=== PATIENT | female | born 1950 | race Hispanic/Latino ===

== ENCOUNTER 2017-02-03 22:46 | Inpatient (IN) | payer MEDICARE ==
[2017-02-04 00:47] LABS: Basophils % (Auto) 0.6 % (0.0-1.8); Eosinophils % (Auto) 1.5 % (0.0-4.3); Hematocrit 38.6 % (30.3-42.9); Hemoglobin 12.2 gm/dl (10.1-14.3); Mean Corpuscular HGB Conc 32 % (30-34); Mean Corpuscular Volume 81 fl (79-97); Platelet Count 213 K/mm3 (140-440); Red Blood Count 4.76 M/mm3 (3.65-5.03); Red Cell Distribution Width 17.1 % (13.2-15.2); White Blood Count 8.9 K/mm3 (4.5-11.0)
[2017-02-04 00:49] LABS: Mean Corpuscular Hemoglobin 26 pg (28-32)
[2017-02-04 01:30] LABS: Anion Gap 20 mmol/L; BUN/Creatinine Ratio 17; Blood Urea Nitrogen 19 mg/dL (7-17); Calcium 9.1 mg/dL (8.4-10.2); Carbon Dioxide 24 mmol/L (22-30); Chloride 98.7 mmol/L (98-107); Glucose 103 mg/dL (65-100); Potassium 4.3 mmol/L (3.6-5.0); Sodium 138 mmol/L (137-145)
[2017-02-04] MEDS ORDERED: DUONEB *Not for PRN Use IH ONE (03:19)
[2017-02-04] MEDS ORDERED: ATROVENT IH ONE (08:09)
[2017-02-04] MEDS ORDERED: PROVENTIL IH ONE (08:09)
[2017-02-04] MEDS ORDERED: TESSALON PERLES PO ONE (08:10)
--- NOTE | 2017-02-04 08:15 | Emergency Department Report ---
ED Shortness of Breath HPI - General Chief Complaint: Dyspnea/Respdistress Stated Complaint: SOB Time Seen by Provider: 02/04/17 07:58 Source: patient, old records reviewed (cardiac cath performed fourth 2014 shows EF of 40-45%, normal coronary arteries, mild increase end diastolic LV pressure) Mode of arrival: Ambulatory Limitations: No Limitations - History of Present Illness Initial Comments: 66-year-old female the past medical history of CHF, COPD (denies home oxygen use), diabetes, CAD, hypertension, lupus, and fibromyalgia presents to the hospital complains of shortness of breath 3 days. Positive social wheezing, cough productive of brown sputum, and worsening left leg edema. Patient has a history of a previous left leg injury and has intermittent unilateral edema she also has a history of a chronic skin wounds intermittent and inflammatory exacerbations. Patient last seen by PMD 2 weeks ago and completed steroids and antibiotics for acute bronchitis. Patient also reports she had flu symptoms for the past 4 weeks and a sinus infection. No documented fever patient states she felt hot yesterday. Patient feels like she is full of fluid and last hospitalization secondary to same was approximately 2 years ago. Patient has been doing well and has not required hospitalization since. 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 PMD: Dr. Aguirre. - Related Data Home Medications Medication Instructions Recorded Confirmed Last Taken Febuxostat [Uloric] 80 mg PO QDAY 12/16/13 07/28/14 07/27/14 Albuterol Sulfate [Proventil HFA] 1 - 2 puff IH Q4H PRN 07/16/14 07/28/14 Previous Rx's Medication Instructions Recorded Last Taken Type Gabapentin [Neurontin] 600 mg PO Q8H #90 tablet 12/17/13 07/27/14 Rx HYDROcodone/APAP 10-325 [[place] 1 each PO Q6HR PRN #20 tablet 12/17/13 07/27/14 Rx 10-325 mg TAB] ALPRAZolam [Xanax TAB] 1 mg PO QHS PRN #20 tablet 07/25/14 07/27/14 Rx Aspirin [Aspirin BABY CHEW TAB] 81 mg PO DAILY #30 tab.chew 07/25/14 07/28/14 Rx Carvedilol [Coreg] 3.125 mg PO BID #60 tablet 07/25/14 07/28/14 Rx Citalopram Hydrobromide [celeXA] 20 mg PO DAILY #30 tablet 07/25/14 07/27/14 Rx Insulin Glargine [Lantus VIAL] 20 units SUB-Q QHS #30 units 07/25/14 07/24/14 Rx Albuterol Sulfate [Albuterol 0.63%] 0.63 mg IH Q6H PRN 30 Days 08/02/14 Unknown Rx Allergies Allergy/AdvReac Type Severity Reaction Status Date / Time Penicillins Allergy Rash Verified 12/15/13 20:43 ED Review of Systems ROS: Stated complaint: SOB Other details as noted in HPI Comment: All other systems reviewed and negative Other: Constitutional: As per HPI Eyes: No eye pain visual changes ENT: No ear pain or throat pain Neck: Denies pain Respiratory: As per HPI Cardiovascular: Denies chest pain, palpitations, syncope GI: Denies abdominal pain, nausea, vomiting : Denies dysuria Musculoskeletal: Denies back pain Skin: Denies rash, lesions, erythema Neurologic: Denies headache, numbness, weakness Psychiatric: Denies suicidal ideation, hallucinations ED Past Medical Hx - Past Medical History Previous Medical History?: Yes Hx Hypertension: Yes Hx Heart Attack/AMI: Yes Hx Congestive Heart Failure: Yes Hx Diabetes: Yes Hx Deep Vein Thrombosis: No Hx Arthritis: Yes Hx Asthma: No Hx COPD: Yes Additional medical history: lupus fibromyalgia - Surgical History Past Surgical History?: Yes Additional Surgical History: carpal tunnel - Social History Smoking Status: Former Smoker Substance Use Type: None - Medications Home Medications: Home Medications Medication Instructions Recorded Confirmed Last Taken Type Febuxostat [Uloric] 80 mg PO QDAY 12/16/13 07/28/14 07/27/14 History Gabapentin [Neurontin] 600 mg PO Q8H #90 tablet 12/17/13 07/28/14 07/27/14 Rx HYDROcodone/APAP 10-325 [[place] 1 each PO Q6HR PRN #20 tablet 12/17/13 07/28/14 07/27/14 Rx 10-325 mg TAB] Albuterol Sulfate [Proventil HFA] 1 - 2 puff IH Q4H PRN 07/16/14 07/28/14 History ALPRAZolam [Xanax TAB] 1 mg PO QHS PRN #20 tablet 07/25/14 07/28/14 07/27/14 Rx Aspirin [Aspirin BABY CHEW TAB] 81 mg PO DAILY #30 tab.chew 07/25/14 07/28/14 Rx Carvedilol [Coreg] 3.125 mg PO BID #60 tablet 07/25/14 07/28/14 07/28/14 Rx Citalopram Hydrobromide [celeXA] 20 mg PO DAILY #30 tablet 07/25/14 07/28/1401/31 Rx Insulin Glargine [Lantus VIAL] 20 units SUB-Q QHS #30 units 07/25/14 07/28/14 Rx Albuterol Sulfate [Albuterol 0.63%] 0.63 mg IH Q6H PRN 30 Days 08/02/14 Unknown Rx ED Physical Exam - General Limitations: No Limitations - Other Other exam information: General: No limitations, patient is alert in no acute distress Head exam: Atraumatic, normocephalic Eyes exam: Normal appearance ENT: Moist mucous membrane Neck exam: Normal inspection, full range of motion, no meningismus nontender Respiratory exam: Clear to auscultation bilateral, no wheezes, rales, crackles Cardiovascular: Normal rate and rhythm, normal heart sounds Abdomen: Soft, nondistended, and nontender, with normal bowel sounds, no rebound, or guarding Extremity: Full range of motion, mild left leg/ankle edema compared to the right. Anterior left leg redness with scaling to the skin. Mild warm. 2+ DP pulses equal bilateral Back: Normal Inspection, full range of motion, no tenderness Neurologic: Alert, oriented x3, cranial nerves intact, no motor or sensory deficit Psychiatric: normal affect, normal mood ED Course Vital Signs 02/03/17 02/04/17 02/04/17 22:49 02:09 03:24 Temperature 97.9 F 98.7 F Pulse Rate 81 83 Pulse Rate [ 65 Anterior Bilateral Throughout] Respiratory 24 22 Rate Respiratory 20 Rate [Anterior Bilateral Throughout] Blood Pressure 128/89 179/86 O2 Sat by Pulse 95 93 Oximetry 02/04/17 02/04/17 02/04/17 03:34 05:40 08:06 Temperature 98.1 F Pulse Rate 67 Pulse Rate [ 69 Anterior Bilateral Throughout] Respiratory 14 Rate Respiratory 20 Rate [Anterior Bilateral Throughout] Blood Pressure 158/71 170/73 O2 Sat by Pulse 96 98 Oximetry ED Medical Decision Making - Lab Data Result diagrams: 02/03/17 23:09 02/03/17 23:09 - EKG Data -: EKG Interpreted by Me (nsr rate 71, no stemi, ars 90, atc 434) - EKG Data When compared to previous EKG there are: no significant change (compared to 07/31) - Radiology Data Radiology results: image reviewed (chest x-ray reviewed: Read by me: Hilar adenopathy versus fullness of the pulmonary arteries, no pulmonary edema or infiltrate appreciated. Official report pending) - Medical Decision Making Clinically patient has signs and symptoms of COPD exacerbation and may also have some mild exacerbation of CHF as well as indicated by increased BNP. No signs of pulmonary edema. Patient states he takes Lasix 40 mg daily and sometimes in the evening as well. Patient will be admitted to the hospital for further treatment. Nebs, Solu-Medrol, and Tessalon Perles for cough initiated in the ED. - Differential Diagnosis viral syndrome, COPD exacerbation, CHF, pneumonia, bronchitis Critical Care Time: No Critical care attestation.: If time is entered above; I have spent that time in minutes in the direct care of this critically ill patient, excluding procedure time. ED Disposition Clinical Impression: COPD with acute exacerbation, Leg edema, left, Chronic venous stasis dermatitis , CHF (congestive heart failure) Disposition: OP ADMIT IP TO THIS HOSP Is pt being admited?: Yes Condition: Stable Time of Disposition: 08:18 ([place]/Hospitalist)
--- NOTE | 2017-02-04 09:05 | XRay Report ---
CHEST 2 VIEWS INDICATION: Shortness of breath for 3 days. Sore throat, bilateral ear pain, cough. COMPARISON: 07/28/2014 FINDINGS: Frontal and lateral chest radiographs demonstrate stable inspiration with mild exaggerated cardiomediastinal silhouette and slightly crowded lung markings centrally. Stable prominent kosta, more so on the right/possible pulmonary arterial hypertension. Slight horizontal left lower lung atelectasis peripherally. No pleural effusions or CHF. Mild multilevel spinal degenerative spurring. CONCLUSION: No acute significant chest process with interval resolution of minimal left pleural effusion. Other findings, as described. Please correlate. Thank you for the opportunity to participate in this patient's care.
[2017-02-04] MEDS ORDERED: NON-FORMULARY (Gabapentin [Neurontin] 600 MG) PO SCH ×2 (09:15→18:00)
--- NOTE | 2017-02-04 09:30 | History and Physical Report ---
<DREW WOLFF - Last Filed: 02/04/17 09:51> History of Present Illness Date of examination: 02/04/17 Date of admission: 02/04/2017 Chief complaint: Shortness of breath History of present illness: Patient is a 66-year-old female with past medical history of e CHF, COPD, diabetes mellitus, CAD, hypertension, lupus, and fibromyalgia, who presents to the emergency department with complaining of shortness of breath.Until 3 days ago patient was at her normal baseline state of health. Patient developed difficulty of breathing 3 days ago and she has had progressive worsening of shortness of breath. This morning while going to the bathroom, shortly thereafter, she felt like she could not catch her breath she decide to come to the Emergency Department. She is not on oxygen at home. Patient denies she has had no fevers, chills, or night sweats. No hx of recurrent pneumonia. He has no sick contact, TB exposure. Patient was diagnosed 2 weeks ago with acute bronchitis and completed steroids and antibiotics. Patient has a history of a previous left leg injury and has intermittent unilateral edema she also has a history of a chronic skin wounds intermittent and inflammatory exacerbations. Past History Past Medical History: CAD, COPD, diabetes, heart failure, hypertension, other ( lupus, and fibromyalgia, ) Past Surgical History: hysterectomy Social history: denies: smoking, alcohol abuse Family history: diabetes, hypertension Medications and Allergies Allergies Allergy/AdvReac Type Severity Reaction Status Date / Time Penicillins Allergy Rash Verified 12/15/13 20:43 Home Medications Medication Instructions Recorded Confirmed Last Taken Type Febuxostat [Uloric] 80 mg PO QDAY 12/16/13 02/04/17 02/02/17 History Carvedilol [Coreg] 6.25 mg PO BID 02/04/17 02/04/17 02/02/17 History Citalopram Hydrobromide [Celexa] 40 mg PO DAILY 02/04/17 02/04/17 02/02/17 History Gabapentin [Neurontin] 600 mg PO QID 02/04/17 02/04/17 02/02/17 History Insulin Detemir [Levemir Flextouch] 20 units SQ QHS 02/04/17 02/04/17 Unknown History Lisinopril [Zestril] 20 mg PO QDAY 02/04/17 02/04/1702/02/17 History Pravastatin [Pravachol] 40 mg PO QHS 02/04/17 02/04/17 02/02/17 History Active Meds: Active Medications Acetaminophen (Tylenol) 650 mg PO Q4H PRN PRN Reason: Pain MILD(1-3)/Fever >100.5/ACUNA Albuterol (Proventil) 2.5 mg IH Q4H PRN PRN Reason: Shortness Of Breath Albuterol/Ipratropium (Duoneb *Not For Prn Use*) 1 ampul IH Q6HRT [facility] Aspirin (Baby Aspirin) 81 mg PO DAILY [facility] Bisacodyl (Dulcolax) 10 mg [place] QDAY PRN PRN Reason: Constipation unrelieved by MOM Citalopram Hydrobromide (Celexa) 20 mg PO DAILY [facility] Enoxaparin Sodium (Lovenox) 40 mg SUB-Q QDAY [facility] Furosemide (Lasix) 40 mg IV BID [facility] Levofloxacin/Dextrose (Levaquin 750mg/150ml) 750 mg in 150 mls @ 100 mls/hr IV Q24HR VU PRN Reason: Protocol Methylprednisolone Sodium Succinate (Solu-Medrol) 60 mg IV Q6H [facility] Miscellaneous Medication (Febuxostat [Uloric]) 80 mg PO QDAY [facility] Miscellaneous Medication (Gabapentin [Neurontin]) 600 mg PO Q8H [facility] Miscellaneous Medication (Insulin Glargine) 20 units SUB-Q QHS [facility] Morphine Sulfate (Morphine) 2 mg IV Q4H PRN PRN Reason: Pain, Moderate (4-6) Review of Systems Constitutional: no weight loss, no weight gain, no fever, no night sweats Ears, nose, mouth and throat: no ear discharge, no tinnitis, no decreased hearing, no nose pain Breasts: no change in shape, no swelling Cardiovascular: no orthopnea, no palpitations, no rapid/irregular heart beat, no edema Respiratory: cough, cough with sputum, shortness of breath, dyspnea on exertion , wheezing, sleep apnea, no excessive sputum, no hemoptysis Gastrointestinal: no nausea, no vomiting Genitourinary Female: no flank pain, no menorrhagia, no dysuria, no urinary frequency Menstruation: no premenarcheal, no post hysterectomy, no ammenorrhea, no period normal Musculoskeletal: no neck pain, no shooting arm pain, no arm numbness/tingling, no low back pain, no shooting leg pain, no leg numbness/tingling Integumentary: no wounds, no jaundice, no boils Neurological: no paralysis, no weakness, no parathesias, no numbness Psychiatric: no memory loss, no change in sleep habits, no sleep disturbances, no insomnia Endocrine: no heat intolerance, no polyphagia, no polydipsia, no polyuria, no nocturia Hematologic/Lymphatic: no easy bruising, no easy bleeding Allergic/Immunologic: no urticaria, no allergic rhinitis Exam - Constitutional Vitals: Temp Pulse Resp BP Pulse Ox 98.1 F 82 18 155/87 96 02/04/17 05:40 02/04/17 09:00 02/04/17 09:00 02/04/17 08:21 02/04/17 08:21 General appearance: Present: mild distress, other (on 2LNc with SPO2 >95%) - EENT Eyes: Present: PERRL - Neck Neck: Present: supple - Respiratory Respiratory: bilateral: CTA - Cardiovascular Rhythm: regular Heart Sounds: Present: S1 & S2 - Extremities Extremities: no ischemia - Abdominal General gastrointestinal: Present: soft, non-tender Female genitourinary: Present: deferred - Rectal Rectal Exam: deferred - Integumentary Integumentary: Present: clear, warm, dry - Musculoskeletal Musculoskeletal: strength equal bilaterally - Psychiatric Psychiatric: appropriate mood/affect - Neurologic Neurologic: CNII-XII intact, moves all extremities - Allied Health Allied health notes reviewed: nursing Results - Labs CBC & Chem 7: 02/03/17 23:09 02/03/17 23:09 Labs: Laboratory Last Values WBC 8.9 K/mm3 (4.5-11.0) 02/03/17 23:09 RBC 4.76 M/mm3 (3.65-5.03) 02/03/17 23:09 Hgb 12.2 gm/dl (10.1-14.3) 02/03/17 23:09 Hct 38.6 % (30.3-42.9) 02/03/17 23:09 MCV 81 fl (79-97) 02/03/17 23:09 MCH 26 pg (28-32) L 02/03/17 23:09 MCHC 32 % (30-34) 02/03/17 23:09 RDW 17.1 % (13.2-15.2) H 02/03/17 23:09 Plt Count 213 K/mm3 (140-440) 02/03/17 23:09 Lymph % (Auto) 5.9 % (13.4-35.0) L 02/03/17 23:09 [place] % (Auto) 11.4 % (0.0-7.3) H 02/03/17 23:09 Eos % (Auto) 1.5 % (0.0-4.3) 02/03/17 23:09 Baso % (Auto) 0.6 % (0.0-1.8) 02/03/17 23:09 Lymph # 0.5 K/mm3 (1.2-5.4) L 02/03/17 23:09 [place] # 1.0 K/mm3 (0.0-0.8) H 02/03/17 23:09 Eos # 0.1 K/mm3 (0.0-0.4) 02/03/17 23:09 Baso # 0.0 K/mm3 (0.0-0.1) 02/03/17 23:09 Seg Neutrophils % 80.6 % (40.0-70.0) H 02/03/17 23:09 Seg Neutrophils # 7.2 K/mm3 (1.8-7.7) 02/03/17 23:09 Sodium 138 mmol/L (137-145) 02/03/17 23:09 Potassium 4.3 mmol/L (3.6-5.0) 02/03/17 23:09 Chloride 98.7 mmol/L (98-107) 02/03/17 23:09 Carbon Dioxide 24 mmol/L (22-30) 02/03/17 23:09 Anion Gap 20 mmol/L 02/03/17 23:09 BUN 19 mg/dL (7-17) H 02/03/17 23:09 Creatinine 1.1 mg/dL (0.7-1.2) 02/03/17 23:09 Estimated GFR 50 ml/min 02/03/17 23:09 BUN/Creatinine Ratio 17 % 02/03/17 23:09 Glucose 103 mg/dL (65-100) H 02/03/17 23:09 Calcium 9.1 mg/dL (8.4-10.2) 02/03/17 23:09 Troponin T < 0.010 ng/mL (0.00-0.029) 02/03/17 23:09 NT-Pro-B Natriuret Pep 8011 pg/mL (0-900) H 02/04/17 02:18 - Imaging and Cardiology Chest x-ray: image reviewed (left pleural effusion) Assessment and Plan Assessment and plan: Patient is a 66-year-old female with past medical history of e CHF, COPD, diabetes mellitus, CAD, hypertension, lupus, and fibromyalgia, who presents to the emergency department with complaining of shortness of breath.Until 3 days ago patient was at her normal baseline state of health. Patient developed difficulty of breathing 3 days ago and she has had progressive worsening of shortness of breath Acute on chronic diastolic Congestive heart failure/pulmonary edema Echocardiogram ordered Restart on Diuresis, beta blockers and ACEI/ARB Strict I&O's and daily weights Low-sodium/cardiac diet/fluid restriction Closely monitor electrolytes Cardiology evaluation Acute COPD exacerbation Continue on Duoneb every 6 hours Wean IV steroid Solumedrol Initiated empiric IV Levaquin Oxygen as necessary Diabetes mellitus Accu-Chek before meals and at bedtime Sliding scale insulin/NovoLog ADA carbohydrate consistent diet Hypertensive urgency Continue home antihypertensive medications Closely monitor blood pressure DVT prophylaxis Heparin Advance Directives: Yes VTE prophylaxis?: Chemical Contraindication Mechanical VTE Prophylaxis: Treatment Not Indicated Plan of care discussed with patient/family: Yes <STEPHENIE ZAIDI O - Last Filed: 02/07/17 05:47> History of Present Illness Date of admission: 02/04/17 08:48 Medications and Allergies Active Meds: Active Medications Acetaminophen (Tylenol) 650 mg PO Q4H PRN PRN Reason: Pain MILD(1-3)/Fever >100.5/ACUNA Last Admin: 02/06/17 06:44 Dose: 650 mg Albuterol (Proventil) 2.5 mg IH Q4H PRN PRN Reason: Shortness Of Breath Albuterol/Ipratropium (Duoneb *Not For Prn Use*) 1 ampul IH Q6HRT [facility] Last Admin: 02/07/17 03:04 Dose: 1 ampul Aspirin (Baby Aspirin) 81 mg PO DAILY [facility] Last Admin: 02/06/17 10:15 Dose: 81 mg Benzonatate (Tessalon Perles) 100 mg PO Q8HR [facility] Last Admin: 02/06/17 22:40 Dose: 100 mg Bisacodyl (Dulcolax) 10 mg [place] QDAY PRN PRN Reason: Constipation unrelieved by MOM Carvedilol (Coreg) 6.25 mg PO BID [facility] Last Admin: 02/06/17 22:42 Dose: 6.25 mg Citalopram Hydrobromide (Celexa) 40 mg PO QDAY [facility] Last Admin: 02/06/17 10:22 Dose: 40 mg Dextrose (D50w (25gm) Syringe) 50 ml IV PRN PRN PRN Reason: Hypoglycemia Enoxaparin Sodium (Lovenox) 40 mg SUB-Q QDAY [facility] Last Admin: 02/06/17 10:22 Dose: 40 mg Gabapentin (Neurontin) 600 mg PO Q8HR [facility] Last Admin: 02/06/17 22:40 Dose: 600 mg Levofloxacin/Dextrose (Levaquin 750mg/150ml) 750 mg in 150 mls @ 100 mls/hr IV Q24H VU PRN Reason: Protocol Last Admin: 02/06/17 13:17 Dose: 100 mls/hr Insulin Aspart (Novolog) 0 units SUB-Q [facility] PRN Reason: Protocol Last Admin: 02/06/17 17:54 Dose: 4 units Insulin Aspart (Novolog) 0 units SUB-Q QHS [facility] PRN Reason: Protocol Last Admin: 02/06/17 22:52 Dose: 2 units Insulin Detemir (Levemir) 20 units SUB-Q QHS [facility] Last Admin: 02/06/17 22:41 Dose: 20 units Methylprednisolone Sodium Succinate (Solu-Medrol) 60 mg IV Q8H [facility] Last Admin: 02/06/17 22:39 Dose: 60 mg Miscellaneous Medication (Febuxostat [Uloric]) 80 mg PO QDAY [facility] Morphine Sulfate (Morphine) 2 mg IV Q4H PRN PRN Reason: Pain, Moderate (4-6) Ondansetron HCl (Zofran) 4 mg IV Q4H PRN PRN Reason: Nausea And Vomiting Simvastatin (Zocor) 20 mg PO QHS [facility] Last Admin: 02/06/17 22:41 Dose: 20 mg Exam - Constitutional Vitals: Temp Pulse Resp BP Pulse Ox 97.2 F L 66 20 152/69 65 L 02/07/17 05:26 02/07/17 05:26 02/07/17 05:26 02/07/17 05:26 02/07/17 05:26 Results - Labs CBC & Chem 7: 02/05/17 15:18 02/06/17 03:44 Labs: Laboratory Last Values WBC 10.6 K/mm3 (4.5-11.0) 02/05/17 15:18 RBC 4.38 M/mm3 (3.65-5.03) 02/05/17 15:18 Hgb 11.5 gm/dl (10.1-14.3) 02/05/17 15:18 Hct 34.7 % (30.3-42.9) 02/05/17 15:18 MCV 79 fl (79-97) 02/05/17 15:18 MCH 26 pg (28-32) L 02/05/17 15:18 MCHC 33 % (30-34) 02/05/17 15:18 RDW 16.8 % (13.2-15.2) H 02/05/17 15:18 Plt Count 182 K/mm3 (140-440) 02/05/17 15:18 Lymph % (Auto) 4.0 % (13.4-35.0) L 02/05/17 15:18 [place] % (Auto) 6.5 % (0.0-7.3) 02/05/17 15:18 Eos % (Auto) 0.0 % (0.0-4.3) 02/05/17 15:18 Baso % (Auto) 0.0 % (0.0-1.8) 02/05/17 15:18 Lymph # 0.4 K/mm3 (1.2-5.4) L 02/05/17 15:18 [place] # 0.7 K/mm3 (0.0-0.8) 02/05/17 15:18 Eos # 0.0 K/mm3 (0.0-0.4) 02/05/17 15:18 Baso # 0.0 K/mm3 (0.0-0.1) 02/05/17 15:18 Seg Neutrophils % 89.5 % (40.0-70.0) H 02/05/17 15:18 Seg Neutrophils # 9.5 K/mm3 (1.8-7.7) H 02/05/17 15:18 PT 14.8 Sec. (12.2-14.9) 02/04/17 10:16 INR 1.10 (0.87-1.13) 02/04/17 10:16 Sodium 137 mmol/L (137-145) 02/06/17 03:44 Potassium 4.9 mmol/L (3.6-5.0) 02/06/17 03:44 Chloride 100.5 mmol/L (98-107) 02/06/17 03:44 Carbon Dioxide 22 mmol/L (22-30) 02/06/17 03:44 Anion Gap 19 mmol/L 02/06/17 03:44 BUN 49 mg/dL (7-17) H 02/06/17 03:44 Creatinine 1.5 mg/dL (0.7-1.2) H 02/06/17 03:44 Estimated GFR 35 ml/min 02/06/17 03:44 BUN/Creatinine Ratio 33 % 02/06/17 03:44 Glucose 241 mg/dL (65-100) H 02/06/17 03:44 POC Glucose 170 (70-105) H 02/06/17 21:58 Hemoglobin A1c 6.9 % (4-6) H 02/04/17 10:16 Calcium 8.3 mg/dL (8.4-10.2) L 02/06/17 03:44 Total Bilirubin 1.00 mg/dL (0.1-1.2) 02/04/17 10:16 AST 19 units/L (5-40) 02/04/17 10:16 ALT 13 units/L (7-56) 02/04/17 10:16 Alkaline Phosphatase 120 units/L (35-129) 02/04/17 10:16 Troponin T < 0.010 ng/mL (0.00-0.029) 02/03/17 23:09 NT-Pro-B Natriuret Pep 8011 pg/mL (0-900) H 02/04/17 02:18 Total Protein 7.6 g/dL (6.3-8.2) 02/04/17 10:16 Albumin 3.7 g/dL (3.9-5) L 02/04/17 10:16 Albumin/Globulin Ratio 0.9 % 02/04/17 10:16 Assessment and Plan Assessment and plan: I saw and evaluated the patient. I agree with the findings and the plan of care as documented in the Nurse Practitioner's~note, with the following corrections and additions. Patient is 66 yo with acute respiratory failure due to COPD exacerbation. Admit to Telemetry. Titrate Oxygen to keep Oxygen sat>92%
[2017-02-04] MEDS ORDERED: FEBUXOSTAT 80 MG PO SCH (10:00)
[2017-02-04] MEDS ORDERED: celeXA PO SCH (10:00)
[2017-02-04] MEDS ORDERED: ZOFRAN IV ONE (10:32)
[2017-02-04] MEDS ORDERED: ZOFRAN ONE (10:37)
[2017-02-04 10:41] LABS: INR 1.1 (0.87-1.13)
[2017-02-04 10:50] LABS: Alanine Aminotransferase 13 units/L (7-56); Albumin 3.7 g/dL (3.9-5); Albumin/Globulin Ratio 0.9 %; Alkaline Phosphatase 120 units/L (35-129); Anion Gap 19 mmol/L; BUN/Creatinine Ratio 21; Blood Urea Nitrogen 19 mg/dL (7-17); Calcium 9.1 mg/dL (8.4-10.2); Carbon Dioxide 23 mmol/L (22-30); Chloride 99.6 mmol/L (98-107); Glucose 116 mg/dL (65-100); Potassium 4.5 mmol/L (3.6-5.0); Sodium 137 mmol/L (137-145); Total Protein 7.6 g/dL (6.3-8.2)
[2017-02-04] MEDS ORDERED: DULCOLAX PR PRN (11:00)
[2017-02-04] MEDS ORDERED: PROVENTIL IH PRN (11:00)
[2017-02-04] MEDS ORDERED: D50W (25GM) Syringe IV PRN (11:00)
[2017-02-04] MEDS ORDERED: ZOFRAN IV PRN (11:31)
[2017-02-04] MEDS: NOVOLOG SUB-Q SCH ×3 (11:56→21:32)
[2017-02-04] MEDS ORDERED: K-DUR PO SCH (12:00)
[2017-02-04] MEDS: LASIX IV SCH ×2 (12:10→21:29)
[2017-02-04] MEDS: LOVENOX SUB-Q SCH (12:10)
[2017-02-04] MEDS: BABY ASPIRIN PO SCH (12:11)
[2017-02-04] MEDS: LEVAQUIN 750MG/150ML 750 MG/150 ML BAG IV SCH (12:26)
[2017-02-04] MEDS: DUONEB *Not for PRN Use IH SCH ×2 (14:33→20:02)
[2017-02-04] MEDS: NEURONTIN PO SCH ×2 (14:44→21:30)
[2017-02-04] MEDS: TESSALON PERLES PO SCH ×2 (16:38→17:24)
[2017-02-04] MEDS: LEVEMIR SUB-Q SCH (21:28)
[2017-02-04] MEDS: COREG PO SCH (21:31)
[2017-02-04] MEDS: ZOCOR PO SCH (21:31)
[2017-02-04] MEDS ORDERED: NON-FORMULARY (Insulin Glargine 20 UNITS) SUB-Q SCH (22:00)
[2017-02-04] MEDS ORDERED: NON-FORMULARY (Pravastatin 40 MG) PO SCH (22:00)
[2017-02-05] MEDS: DUONEB *Not for PRN Use IH SCH ×4 (03:04→20:15)
[2017-02-05] MEDS: NEURONTIN PO SCH ×3 (05:04→21:34)
[2017-02-05] MEDS: TESSALON PERLES PO SCH ×3 (05:04→21:35)
[2017-02-05 06:20] LABS: Hematocrit 35.7 % (30.3-42.9); Hemoglobin 11.5 gm/dl (10.1-14.3); Mean Corpuscular HGB Conc 32 % (30-34); Mean Corpuscular Volume 80 fl (79-97); Platelet Count 179 K/mm3 (140-440); Red Blood Count 4.45 M/mm3 (3.65-5.03); Red Cell Distribution Width 16.6 % (13.2-15.2); White Blood Count 5.3 K/mm3 (4.5-11.0)
[2017-02-05 06:21] LABS: Mean Corpuscular Hemoglobin 26 pg (28-32)
[2017-02-05] MEDS: NOVOLOG SUB-Q SCH ×4 (08:32→22:03)
--- NOTE | 2017-02-05 09:52 | Progress Note ---
<DREW WOLFF - Last Filed: 02/05/17 15:02> Assessment and Plan Assessment and plan: Patient is a 66-year-old female with past medical history of e CHF, COPD, diabetes mellitus, CAD, hypertension, lupus, and fibromyalgia, who presents to the emergency department with complaining of shortness of breath.Until 3 days ago patient was at her normal baseline state of health. Patient developed difficulty of breathing 3 days ago and she has had progressive worsening of shortness of breath Acute on chronic diastolic Congestive heart failure/pulmonary edema Echocardiogram ordered Restart on Diuresis, beta blockers and ACEI/ARB Strict I&O's and daily weights Low-sodium/cardiac diet/fluid restriction Closely monitor electrolytes Cardiology evaluation Acute COPD exacerbation Continue on Duoneb every 6 hours Wean IV steroid Solumedrol Initiated empiric IV Levaquin Oxygen as necessary Diabetes mellitus Accu-Chek before meals and at bedtime Sliding scale insulin/NovoLog ADA carbohydrate consistent diet Hypertensive urgency Continue home antihypertensive medications also add lisinopril and carvedilol Closely monitor blood pressure Hyperlipidemia Started on Zocor 20mg daily DVT prophylaxis Heparin History Interval history: Patient complains dyspnea on exertion, denies chest pain or dizziness. Labs and nurse notes reviewed. Hospitalist Physical - Constitutional Vitals: Temp Pulse Resp BP Pulse Ox 97.7 F 67 18 133/65 95 02/05/17 09:00 02/05/17 09:00 02/05/17 05:17 02/05/17 09:00 02/05/17 05:17 General appearance: Present: mild distress, other (on 2LNc with SPO2 >95%) - EENT Eyes: Present: PERRL ENT: hearing intact - Neck Neck: Present: supple - Respiratory Respiratory: bilateral: wheezing - Cardiovascular Rhythm: regular Heart Sounds: Present: S1 & S2 - Abdominal General gastrointestinal: soft, non-tender - Integumentary Integumentary: Present: clear, warm, dry - Psychiatric Psychiatric: appropriate mood/affect - Allied Health Allied health notes reviewed: nursing Results - Labs CBC & Chem 7: 02/05/17 05:08 02/05/17 05:08 Labs: Laboratory Last Values WBC 5.3 K/mm3 (4.5-11.0) 02/05/17 05:08 RBC 4.45 M/mm3 (3.65-5.03) 02/05/17 05:08 Hgb 11.5 gm/dl (10.1-14.3) 02/05/17 05:08 Hct 35.7 % (30.3-42.9) 02/05/17 05:08 MCV 80 fl (79-97) 02/05/17 05:08 MCH 26 pg (28-32) L 02/05/17 05:08 MCHC 32 % (30-34) 02/05/17 05:08 RDW 16.6 % (13.2-15.2) H 02/05/17 05:08 Plt Count 179 K/mm3 (140-440) 02/05/17 05:08 Lymph % (Auto) [place] Tester 02/05/17 05:08 [place] % (Auto) [place]inell Tester 02/05/17 05:08 Eos % (Auto) [place] Tester 02/05/17 05:08 Baso % (Auto) [place] Tester 02/05/17 05:08 Lymph # [place] Tester 02/05/17 05:08 [place] # Brinell Tester 02/05/17 05:08 Eos # Brinell Tester 02/05/17 05:08 Baso # Brinell Tester 02/05/17 05:08 Seg Neutrophils % [place] Tester 02/05/17 05:08 Seg Neutrophils # [place]inell Tester 02/05/17 05:08 PT 14.8 Sec. (12.2-14.9) 02/04/17 10:16 INR 1.10 (0.87-1.13) 02/04/17 10:16 Sodium 137 mmol/L (137-145) 02/04/17 10:16 Potassium 4.9 mmol/L (3.6-5.0) 02/05/17 05:08 Chloride 99.6 mmol/L (98-107) 02/04/17 10:16 Carbon Dioxide 23 mmol/L (22-30) 02/04/17 10:16 Anion Gap 19 mmol/L 02/04/17 10:16 BUN 19 mg/dL (7-17) H 02/04/17 10:16 Creatinine 0.9 mg/dL (0.7-1.2) 02/04/17 10:16 Estimated GFR > 60 ml/min 02/04/17 10:16 BUN/Creatinine Ratio 21 % 02/04/17 10:16 Glucose 116 mg/dL (65-100) H 02/04/17 10:16 POC Glucose 245 (70-105) H 02/05/17 08:01 Hemoglobin A1c 6.9 % (4-6) H 02/04/17 10:16 Calcium 9.1 mg/dL (8.4-10.2) 02/04/17 10:16 Total Bilirubin 1.00 mg/dL (0.1-1.2) 02/04/17 10:16 AST 19 units/L (5-40) 02/04/17 10:16 ALT 13 units/L (7-56) 02/04/17 10:16 Alkaline Phosphatase 120 units/L (35-129) 02/04/17 10:16 Troponin T < 0.010 ng/mL (0.00-0.029) 02/03/17 23:09 NT-Pro-B Natriuret Pep 8011 pg/mL (0-900) H 02/04/17 02:18 Total Protein 7.6 g/dL (6.3-8.2) 02/04/17 10:16 Albumin 3.7 g/dL (3.9-5) L 02/04/17 10:16 Albumin/Globulin Ratio 0.9 % 02/04/17 10:16 <STEPHENIE ZAIDI - Last Filed: 02/07/17 05:48> Assessment and Plan Assessment and plan: I saw and evaluated the patient. I agree with the findings and the plan of care as documented in the Nurse Practitioner's~note, with the following corrections and additions. Patient with acute respiratory failure due to COPD and CHF exacerbation.. Still has shortness of breath. Creatinine elevated therefore lasix discontinued. Hospitalist Physical - Constitutional Vitals: Temp Pulse Resp BP Pulse Ox 97.2 F L 66 20 152/69 65 L 02/07/17 05:26 02/07/17 05:26 02/07/17 05:26 02/07/17 05:26 02/07/17 05:26 Results - Labs CBC & Chem 7: 02/05/17 15:18 02/06/17 03:44 Labs: Laboratory Last Values WBC 10.6 K/mm3 (4.5-11.0) 02/05/17 15:18 RBC 4.38 M/mm3 (3.65-5.03) 02/05/17 15:18 Hgb 11.5 gm/dl (10.1-14.3) 02/05/17 15:18 Hct 34.7 % (30.3-42.9) 02/05/17 15:18 MCV 79 fl (79-97) 02/05/17 15:18 MCH 26 pg (28-32) L 02/05/17 15:18 MCHC 33 % (30-34) 02/05/17 15:18 RDW 16.8 % (13.2-15.2) H 02/05/17 15:18 Plt Count 182 K/mm3 (140-440) 02/05/17 15:18 Lymph % (Auto) 4.0 % (13.4-35.0) L 02/05/17 15:18 [place] % (Auto) 6.5 % (0.0-7.3) 02/05/17 15:18 Eos % (Auto) 0.0 % (0.0-4.3) 02/05/17 15:18 Baso % (Auto) 0.0 % (0.0-1.8) 02/05/17 15:18 Lymph # 0.4 K/mm3 (1.2-5.4) L 02/05/17 15:18 [place] # 0.7 K/mm3 (0.0-0.8) 02/05/17 15:18 Eos # 0.0 K/mm3 (0.0-0.4) 02/05/17 15:18 Baso # 0.0 K/mm3 (0.0-0.1) 02/05/17 15:18 Seg Neutrophils % 89.5 % (40.0-70.0) H 02/05/17 15:18 Seg Neutrophils # 9.5 K/mm3 (1.8-7.7) H 02/05/17 15:18 PT 14.8 Sec. (12.2-14.9) 02/04/17 10:16 INR 1.10 (0.87-1.13) 02/04/17 10:16 Sodium 137 mmol/L (137-145) 02/06/17 03:44 Potassium 4.9 mmol/L (3.6-5.0) 02/06/17 03:44 Chloride 100.5 mmol/L (98-107) 02/06/17 03:44 Carbon Dioxide 22 mmol/L (22-30) 02/06/17 03:44 Anion Gap 19 mmol/L 02/06/17 03:44 BUN 49 mg/dL (7-17) H 02/06/17 03:44 Creatinine 1.5 mg/dL (0.7-1.2) H 02/06/17 03:44 Estimated GFR 35 ml/min 02/06/17 03:44 BUN/Creatinine Ratio 33 % 02/06/17 03:44 Glucose 241 mg/dL (65-100) H 02/06/17 03:44 POC Glucose 170 (70-105) H 02/06/17 21:58 Hemoglobin A1c 6.9 % (4-6) H 02/04/17 10:16 Calcium 8.3 mg/dL (8.4-10.2) L 02/06/17 03:44 Total Bilirubin 1.00 mg/dL (0.1-1.2) 02/04/17 10:16 AST 19 units/L (5-40) 02/04/17 10:16 ALT 13 units/L (7-56) 02/04/17 10:16 Alkaline Phosphatase 120 units/L (35-129) 02/04/17 10:16 Troponin T < 0.010 ng/mL (0.00-0.029) 02/03/17 23:09 NT-Pro-B Natriuret Pep 8011 pg/mL (0-900) H 02/04/17 02:18 Total Protein 7.6 g/dL (6.3-8.2) 02/04/17 10:16 Albumin 3.7 g/dL (3.9-5) L 02/04/17 10:16 Albumin/Globulin Ratio 0.9 % 02/04/17 10:16
[2017-02-05] MEDS: LASIX IV SCH (10:00)
[2017-02-05] MEDS ORDERED: ZESTRIL PO SCH (10:00)
[2017-02-05] MEDS ORDERED: NON-FORMULARY (Citalopram Hydrobromide [Celexa] 40 MG) PO SCH (10:00)
[2017-02-05] MEDS: celeXA PO SCH (13:29)
[2017-02-05] MEDS: COREG PO SCH ×2 (13:29→21:35)
[2017-02-05] MEDS: LOVENOX SUB-Q SCH (13:30)
[2017-02-05] MEDS: BABY ASPIRIN PO SCH (13:30)
--- NOTE | 2017-02-05 15:01 | Progress Note ---
Hospitalist Physical - Constitutional Vitals: Temp Pulse Resp BP Pulse Ox 97.7 F 90 18 133/65 95 02/05/17 09:00 02/05/17 13:29 02/05/17 07:35 02/05/17 09:00 02/05/17 07:24 General appearance: Present: mild distress, other (on 2LNc with SPO2 >95%) Results - Labs CBC & Chem 7: 02/05/17 05:08 02/05/17 05:08 Labs: Laboratory Last Values WBC 5.3 K/mm3 (4.5-11.0) 02/05/17 05:08 RBC 4.45 M/mm3 (3.65-5.03) 02/05/17 05:08 Hgb 11.5 gm/dl (10.1-14.3) 02/05/17 05:08 Hct 35.7 % (30.3-42.9) 02/05/17 05:08 MCV 80 fl (79-97) 02/05/17 05:08 MCH 26 pg (28-32) L 02/05/17 05:08 MCHC 32 % (30-34) 02/05/17 05:08 RDW 16.6 % (13.2-15.2) H 02/05/17 05:08 Plt Count 179 K/mm3 (140-440) 02/05/17 05:08 Lymph % (Auto) Bi Developer 02/05/17 05:08 [place] % (Auto) Bi Developer 02/05/17 05:08 Eos % (Auto) Bi Developer 02/05/17 05:08 Baso % (Auto) Bi Developer 02/05/17 05:08 Lymph # Bi Developer 02/05/17 05:08 [place] # Bi Developer 02/05/17 05:08 Eos # Bi Developer 02/05/17 05:08 Baso # Bi Developer 02/05/17 05:08 Seg Neutrophils % Bi Developer 02/05/17 05:08 Seg Neutrophils # Bi Developer 02/05/17 05:08 PT 14.8 Sec. (12.2-14.9) 02/04/17 10:16 INR 1.10 (0.87-1.13) 02/04/17 10:16 Sodium 137 mmol/L (137-145) 02/04/17 10:16 Potassium 4.9 mmol/L (3.6-5.0) 02/05/17 05:08 Chloride 99.6 mmol/L (98-107) 02/04/17 10:16 Carbon Dioxide 23 mmol/L (22-30) 02/04/17 10:16 Anion Gap 19 mmol/L 02/04/17 10:16 BUN 19 mg/dL (7-17) H 02/04/17 10:16 Creatinine 0.9 mg/dL (0.7-1.2) 02/04/17 10:16 Estimated GFR > 60 ml/min 02/04/17 10:16 BUN/Creatinine Ratio 21 % 02/04/17 10:16 Glucose 116 mg/dL (65-100) H 02/04/17 10:16 POC Glucose 311 (70-105) H 02/05/17 12:34 Hemoglobin A1c 6.9 % (4-6) H 02/04/17 10:16 Calcium 9.1 mg/dL (8.4-10.2) 02/04/17 10:16 Total Bilirubin 1.00 mg/dL (0.1-1.2) 02/04/17 10:16 AST 19 units/L (5-40) 02/04/17 10:16 ALT 13 units/L (7-56) 02/04/17 10:16 Alkaline Phosphatase 120 units/L (35-129) 02/04/17 10:16 Troponin T < 0.010 ng/mL (0.00-0.029) 02/03/17 23:09 NT-Pro-B Natriuret Pep 8011 pg/mL (0-900) H 02/04/17 02:18 Total Protein 7.6 g/dL (6.3-8.2) 02/04/17 10:16 Albumin 3.7 g/dL (3.9-5) L 02/04/17 10:16 Albumin/Globulin Ratio 0.9 % 02/04/17 10:16
[2017-02-05 15:55] LABS: Hematocrit 34.7 % (30.3-42.9); Hemoglobin 11.5 gm/dl (10.1-14.3); Mean Corpuscular HGB Conc 33 % (30-34); Mean Corpuscular Hemoglobin 26 pg (28-32); Mean Corpuscular Volume 79 fl (79-97); Platelet Count 182 K/mm3 (140-440); Red Blood Count 4.38 M/mm3 (3.65-5.03); Red Cell Distribution Width 16.8 % (13.2-15.2); White Blood Count 10.6 K/mm3 (4.5-11.0)
[2017-02-05 16:09] LABS: Calcium 8.5 mg/dL (8.4-10.2); Chloride 97.6 mmol/L (98-107); Potassium 4.6 mmol/L (3.6-5.0)
[2017-02-05] MEDS ORDERED: NOVOLOG SUB-Q ONE (16:10)
[2017-02-05] MEDS: LEVAQUIN 750MG/150ML 750 MG/150 ML BAG IV SCH (18:24)
[2017-02-05] MEDS: ZOCOR PO SCH (21:35)
[2017-02-05] MEDS: LEVEMIR SUB-Q SCH (21:51)
[2017-02-05] MEDS: TYLENOL PO PRN (22:01)
[2017-02-06] MEDS: DUONEB *Not for PRN Use IH SCH ×4 (01:42→20:18)
[2017-02-06] MEDS: TYLENOL PO PRN ×2 (02:26→06:44)
[2017-02-06 05:01] LABS: Calcium 8.3 mg/dL (8.4-10.2); Chloride 100.5 mmol/L (98-107); Potassium 4.9 mmol/L (3.6-5.0)
[2017-02-06] MEDS: NEURONTIN PO SCH ×3 (06:24→22:40)
[2017-02-06] MEDS: TESSALON PERLES PO SCH ×3 (06:24→22:40)
[2017-02-06] MEDS: BABY ASPIRIN PO SCH (10:15)
[2017-02-06] MEDS: celeXA PO SCH (10:22)
[2017-02-06] MEDS: LOVENOX SUB-Q SCH (10:22)
[2017-02-06] MEDS: COREG PO SCH ×2 (10:23→22:42)
[2017-02-06] MEDS: NOVOLOG SUB-Q SCH ×4 (10:25→22:52)
[2017-02-06] MEDS: LEVAQUIN 750MG/150ML 750 MG/150 ML BAG IV SCH (13:17)
--- NOTE | 2017-02-06 13:55 | Progress Note ---
Assessment and Plan Assessment and plan: Patient is a 66-year-old female with past medical history of e CHF, COPD, diabetes mellitus, CAD, hypertension, lupus, and fibromyalgia, who presents to the emergency department with complaining of shortness of breath.Until 3 days ago patient was at her normal baseline state of health. Patient developed difficulty of breathing 3 days ago, presented to ED and was admitted. Acute on chronic respiratory failure due to COPD excerbation and CHF exacerbation. Continue supplemental Oxygen Acute COPD exacerbation Continue on Duoneb every 6 hours Continue Solumedrol Initiated empiric IV Levaquin She is on Oxygen and may need home Oxygen on discharge Acute on chronic diastolic Congestive heart failure/pulmonary edema Echocardiogram ordered Restarted on beta blockers and ACEI/ARB Strict I&O's and daily weights Low-sodium/cardiac diet/fluid restriction Closely monitor electrolytes Lasix on hold because of AURA Diabetes mellitus Accu-Chek before meals and at bedtime Sliding scale insulin/NovoLog ADA carbohydrate consistent diet Hypertensive urgency Continue home antihypertensive medications also add lisinopril and carvedilol Closely monitor blood pressure Hyperlipidemia Started on Zocor 20mg daily DVT prophylaxis Heparin History Interval history: Still has shortness of breath, worse on exertion less Wheezing Hospitalist Physical - Physical exam Narrative exam: Gen Appearance: Not in acute distress,obese HEENT: normocephalic, atraumatic Neck: supple, no JVD Lungs: Bilateral rhonchi, wheezing, Heart: S1 and S2 regular, no murmurs,no rubs or gallop, Abdomen: Soft , non tender, non distended, normal bowel sounds Extremity: No edema, no clubbing or cyanosis, Neuro : Awake,alert, oriented x 3, normal speech, moves all extremities Psych: Normal mood - Constitutional Vitals: Temp Pulse Resp BP Pulse Ox 97.7 F 79 18 162/74 97 02/06/17 09:00 02/06/17 10:40 02/06/17 10:40 02/06/17 10:23 02/06/17 10:34 General appearance: Present: mild distress, other (on 2LNc with SPO2 >95%) Results - Labs CBC & Chem 7: 02/05/17 15:18 02/07/17 05:25 Labs: Laboratory Last Values WBC 10.6 K/mm3 (4.5-11.0) 02/05/17 15:18 RBC 4.38 M/mm3 (3.65-5.03) 02/05/17 15:18 Hgb 11.5 gm/dl (10.1-14.3) 02/05/17 15:18 Hct 34.7 % (30.3-42.9) 02/05/17 15:18 MCV 79 fl (79-97) 02/05/17 15:18 MCH 26 pg (28-32) L 02/05/17 15:18 MCHC 33 % (30-34) 02/05/17 15:18 RDW 16.8 % (13.2-15.2) H 02/05/17 15:18 Plt Count 182 K/mm3 (140-440) 02/05/17 15:18 Lymph % (Auto) 4.0 % (13.4-35.0) L 02/05/17 15:18 [place] % (Auto) 6.5 % (0.0-7.3) 02/05/17 15:18 Eos % (Auto) 0.0 % (0.0-4.3) 02/05/17 15:18 Baso % (Auto) 0.0 % (0.0-1.8) 02/05/17 15:18 Lymph # 0.4 K/mm3 (1.2-5.4) L 02/05/17 15:18 [place] # 0.7 K/mm3 (0.0-0.8) 02/05/17 15:18 Eos # 0.0 K/mm3 (0.0-0.4) 02/05/17 15:18 Baso # 0.0 K/mm3 (0.0-0.1) 02/05/17 15:18 Seg Neutrophils % 89.5 % (40.0-70.0) H 02/05/17 15:18 Seg Neutrophils # 9.5 K/mm3 (1.8-7.7) H 02/05/17 15:18 PT 14.8 Sec. (12.2-14.9) 02/04/17 10:16 INR 1.10 (0.87-1.13) 02/04/17 10:16 Sodium 137 mmol/L (137-145) 02/06/17 03:44 Potassium 4.9 mmol/L (3.6-5.0) 02/06/17 03:44 Chloride 100.5 mmol/L (98-107) 02/06/17 03:44 Carbon Dioxide 22 mmol/L (22-30) 02/06/17 03:44 Anion Gap 19 mmol/L 02/06/17 03:44 BUN 49 mg/dL (7-17) H 02/06/17 03:44 Creatinine 1.5 mg/dL (0.7-1.2) H 02/06/17 03:44 Estimated GFR 35 ml/min 02/06/17 03:44 BUN/Creatinine Ratio 33 % 02/06/17 03:44 Glucose 241 mg/dL (65-100) H 02/06/17 03:44 POC Glucose 294 (70-105) H 02/06/17 12:11 Hemoglobin A1c 6.9 % (4-6) H 02/04/17 10:16 Calcium 8.3 mg/dL (8.4-10.2) L 02/06/17 03:44 Total Bilirubin 1.00 mg/dL (0.1-1.2) 02/04/17 10:16 AST 19 units/L (5-40) 02/04/17 10:16 ALT 13 units/L (7-56) 02/04/17 10:16 Alkaline Phosphatase 120 units/L (35-129) 02/04/17 10:16 Troponin T < 0.010 ng/mL (0.00-0.029) 02/03/17 23:09 NT-Pro-B Natriuret Pep 8011 pg/mL (0-900) H 02/04/17 02:18 Total Protein 7.6 g/dL (6.3-8.2) 02/04/17 10:16 Albumin 3.7 g/dL (3.9-5) L 02/04/17 10:16 Albumin/Globulin Ratio 0.9 % 02/04/17 10:16
[2017-02-06] MEDS: ZOCOR PO SCH ×2 (22:41→23:01)
[2017-02-06] MEDS: LEVEMIR SUB-Q SCH (22:41)
[2017-02-06] MEDS ORDERED: ZOCOR PO SCH (23:00)
[2017-02-07] MEDS: DUONEB *Not for PRN Use IH SCH ×5 (03:04→19:48)
[2017-02-07] MEDS: TESSALON PERLES PO SCH ×4 (05:54→23:00)
[2017-02-07] MEDS: NEURONTIN PO SCH ×4 (05:55→23:00)
[2017-02-07 06:18] LABS: Calcium 8.8 mg/dL (8.4-10.2); Chloride 101.2 mmol/L (98-107); Potassium 5.2 mmol/L (3.6-5.0)
[2017-02-07] MEDS ORDERED: NOVOLOG SUB-Q STA (07:54)
[2017-02-07] MEDS: NOVOLOG SUB-Q SCH ×4 (08:44→23:08)
[2017-02-07] MEDS: MORPHINE IV PRN ×2 (08:44→12:30)
[2017-02-07] MEDS: COREG PO SCH ×3 (08:46→23:00)
[2017-02-07] MEDS: BABY ASPIRIN PO SCH ×2 (08:47→10:08)
[2017-02-07] MEDS: LOVENOX SUB-Q SCH ×2 (08:47→10:08)
[2017-02-07] MEDS: celeXA PO SCH ×2 (08:47→10:08)
[2017-02-07] MEDS: KIONEX PO ONE ×2 (12:27→13:08)
[2017-02-07] MEDS: LEVAQUIN 750MG/150ML 750 MG/150 ML BAG IV SCH (12:29)
[2017-02-07] MEDS ORDERED: KIONEX PO ONE (13:00)
--- NOTE | 2017-02-07 15:03 | Progress Note ---
Assessment and Plan Assessment and plan: Patient is a 66-year-old female with past medical history of e CHF, COPD, diabetes mellitus, CAD, hypertension, lupus, and fibromyalgia, who presents to the emergency department with complaining of shortness of breath.Until 3 days ago patient was at her normal baseline state of health. Patient developed difficulty of breathing 3 days ago, presented to ED and was admitted. Acute on chronic respiratory failure due to COPD excerbation and CHF exacerbation. Continue supplemental Oxygen. He currently has an O2 sats of 97% on 2 L nasal oxygen. Yesterday she desaturated on walking O2 sats 84%. She will therefore need home Oxygen at 2 L per minute. case managemment consulted Acute COPD exacerbation Continue on Duoneb every 6 hours Continue Solumedrol Initiated empiric IV Levaquin She is on Oxygen and will need home Oxygen on discharge Acute on chronic systolic Congestive heart failure Echocardiogram shows EF 20-25%. Will consult cardiology. She was seen by Dr. Serg Henriquez and had cardiac cath here 2 yrs ago Restarted on beta blockers. Lisinopril on hold because of acute kidney injury Strict I&O's and daily weights Low-sodium/cardiac diet/fluid restriction Closely monitor electrolytes Lasix on hold because of AURA Acute kidney injury Lasix and Lisinopril on hold. AURA improving. Creatinine 1.4 today from 1.6 two days ago. Diabetes mellitus Type 2 Accu-Chek before meals and at bedtime Sliding scale insulin/NovoLog consistent carbohydrate diet Hypertensive urgency Continue Coreg. Closely monitor blood pressure Hyperlipidemia Started on Zocor 20mg daily DVT prophylaxis Heparin History Interval history: Still has shortness of breath, worse on exertion less Wheezing No chest pain Hospitalist Physical - Physical exam Narrative exam: Gen Appearance: Not in acute distress,obese HEENT: normocephalic, atraumatic Neck: supple, no JVD Lungs: Bilateral rhonchi, wheezing, Heart: S1 and S2 regular, no murmurs,no rubs or gallop, Abdomen: Soft , non tender, non distended, normal bowel sounds Extremity: No edema, no clubbing or cyanosis, Neuro : Awake,alert, oriented x 3, normal speech, moves all extremities Psych: Normal mood - Constitutional Vitals: Temp Pulse Resp BP Pulse Ox 97.3 F L 61 22 173/70 95 02/07/17 12:45 02/07/17 12:45 02/07/17 12:45 02/07/17 12:45 02/07/17 12:45 General appearance: Present: mild distress, other (on 2LNc with SPO2 >95%) Results - Labs CBC & Chem 7: 02/05/17 15:18 02/07/17 05:25 Labs: Laboratory Last Values WBC 10.6 K/mm3 (4.5-11.0) 02/05/17 15:18 RBC 4.38 M/mm3 (3.65-5.03) 02/05/17 15:18 Hgb 11.5 gm/dl (10.1-14.3) 02/05/17 15:18 Hct 34.7 % (30.3-42.9) 02/05/17 15:18 MCV 79 fl (79-97) 02/05/17 15:18 MCH 26 pg (28-32) L 02/05/17 15:18 MCHC 33 % (30-34) 02/05/17 15:18 RDW 16.8 % (13.2-15.2) H 02/05/17 15:18 Plt Count 182 K/mm3 (140-440) 02/05/17 15:18 Lymph % (Auto) 4.0 % (13.4-35.0) L 02/05/17 15:18 [place] % (Auto) 6.5 % (0.0-7.3) 02/05/17 15:18 Eos % (Auto) 0.0 % (0.0-4.3) 02/05/17 15:18 Baso % (Auto) 0.0 % (0.0-1.8) 02/05/17 15:18 Lymph # 0.4 K/mm3 (1.2-5.4) L 02/05/17 15:18 [place] # 0.7 K/mm3 (0.0-0.8) 02/05/17 15:18 Eos # 0.0 K/mm3 (0.0-0.4) 02/05/17 15:18 Baso # 0.0 K/mm3 (0.0-0.1) 02/05/17 15:18 Seg Neutrophils % 89.5 % (40.0-70.0) H 02/05/17 15:18 Seg Neutrophils # 9.5 K/mm3 (1.8-7.7) H 02/05/17 15:18 PT 14.8 Sec. (12.2-14.9) 02/04/17 10:16 INR 1.10 (0.87-1.13) 02/04/17 10:16 Sodium 140 mmol/L (137-145) 02/07/17 05:25 Potassium 5.2 mmol/L (3.6-5.0) H 02/07/17 05:25 Chloride 101.2 mmol/L (98-107) 02/07/17 05:25 Carbon Dioxide 22 mmol/L (22-30) 02/07/17 05:25 Anion Gap 22 mmol/L 02/07/17 05:25 BUN 61 mg/dL (7-17) H 02/07/17 05:25 Creatinine 1.4 mg/dL (0.7-1.2) H 02/07/17 05:25 Estimated GFR 38 ml/min 02/07/17 05:25 BUN/Creatinine Ratio 44 % 02/07/17 05:25 Glucose 232 mg/dL (65-100) H 02/07/17 05:25 POC Glucose 338 (70-105) H 02/07/17 12:30 Hemoglobin A1c 6.9 % (4-6) H 02/04/17 10:16 Calcium 8.8 mg/dL (8.4-10.2) 02/07/17 05:25 Total Bilirubin 1.00 mg/dL (0.1-1.2) 02/04/17 10:16 AST 19 units/L (5-40) 02/04/17 10:16 ALT 13 units/L (7-56) 02/04/17 10:16 Alkaline Phosphatase 120 units/L (35-129) 02/04/17 10:16 Troponin T < 0.010 ng/mL (0.00-0.029) 02/03/17 23:09 NT-Pro-B Natriuret Pep 8011 pg/mL (0-900) H 02/04/17 02:18 Total Protein 7.6 g/dL (6.3-8.2) 02/04/17 10:16 Albumin 3.7 g/dL (3.9-5) L 10/19/17 10:16 Albumin/Globulin Ratio 0.9 % 02/04/17 10:16
--- NOTE | 2017-02-07 15:47 | Consultation ---
History of Present Illness Consult date: 02/07/17 Requesting physician: STEPHENIE ZAIDI Reason for consult: COPD, other (Acute Hypoxemic Respiratory Failure) History of present illness: PULMONARY/CCM CONSULT NOTE (Full dictation # [id number]) Please see dictated notes for full details Past History Past Medical History: CAD, COPD, diabetes, heart failure, hypertension, other ( lupus, and fibromyalgia, ) Past Surgical History: hysterectomy Social history: denies: smoking, alcohol abuse Family history: diabetes, hypertension Medications and Allergies Allergies Allergy/AdvReac Type Severity Reaction Status Date / Time Penicillins Allergy Rash Verified 12/15/13 20:43 Home Medications Medication Instructions Recorded Confirmed Last Taken Type Febuxostat [Uloric] 80 mg PO QDAY 12/16/13 02/04/17 02/02/17 History Carvedilol [Coreg] 6.25 mg PO BID 02/04/17 02/04/17 02/02/17 History Citalopram Hydrobromide [Celexa] 40 mg PO DAILY 02/04/17 02/04/17 02/02/17 History Gabapentin [Neurontin] 600 mg PO QID 02/04/17 02/04/17 02/02/17 History Insulin Detemir [Levemir Flextouch] 20 units SQ QHS 02/04/17 02/04/17 Unknown History Lisinopril [Zestril] 20 mg PO QDAY 02/04/17 02/04/17 02/02/17 History Pravastatin [Pravachol] 40 mg PO QHS 02/04/17 02/04/17 02/02/17 History Active Meds: Active Medications Acetaminophen (Tylenol) 650 mg PO Q4H PRN PRN Reason: Pain MILD(1-3)/Fever >100.5/ACUNA Last Admin: 02/06/17 06:44 Dose: 650 mg Albuterol (Proventil) 2.5 mg IH Q4H PRN PRN Reason: Shortness Of Breath Albuterol/Ipratropium (Duoneb *Not For Prn Use*) 1 ampul IH Q6HRT [facility] Last Admin: 02/07/17 14:07 Dose: 1 ampul Amlodipine Besylate (Norvasc) 5 mg PO QDAY [facility] Aspirin (Baby Aspirin) 81 mg PO DAILY [facility] Last Admin: 02/07/17 10:08 Dose: Not Given Benzonatate (Tessalon Perles) 100 mg PO Q8HR [facility] Last Admin: 02/07/17 15:09 Dose: Not Given Bisacodyl (Dulcolax) 10 mg HI QDAY PRN PRN Reason: Constipation unrelieved by MOM Carvedilol (Coreg) 6.25 mg PO BID [facility] Last Admin: 02/07/17 10:08 Dose: Not Given Citalopram Hydrobromide (Celexa) 40 mg PO QDAY [facility] Last Admin: 02/07/17 10:08 Dose: Not Given Dextrose (D50w (25gm) Syringe) 50 ml IV PRN PRN PRN Reason: Hypoglycemia Enoxaparin Sodium (Lovenox) 40 mg SUB-Q QDAY [facility] Last Admin: 02/07/17 10:08 Dose: Not Given Gabapentin (Neurontin) 600 mg PO Q8HR [facility] Last Admin: 02/07/17 15:08 Dose: Not Given Levofloxacin/Dextrose (Levaquin 750mg/150ml) 750 mg in 150 mls @ 100 mls/hr IV Q24H [facility] PRN Reason: Protocol Last Admin: 02/07/17 12:29 Dose: 100 mls/hr Insulin Aspart (Novolog) 0 units SUB-Q AC [facility] PRN Reason: Protocol Last Admin: 02/07/17 12:29 Dose: 6 units Insulin Aspart (Novolog) 0 units SUB-Q QHS [facility] PRN Reason: Protocol Last Admin: 02/06/17 22:52 Dose: 2 units Insulin Detemir (Levemir) 20 units SUB-Q QHS [facility] Last Admin: 02/06/17 22:41 Dose: 20 units Methylprednisolone Sodium Succinate (Solu-Medrol) 60 mg IV Q8H [facility] Last Admin: 02/07/17 12:29 Dose: 60 mg Miscellaneous Medication (Febuxostat [Uloric]) 80 mg PO QDAY [facility] Morphine Sulfate (Morphine) 2 mg IV Q4H PRN PRN Reason: Pain, Moderate (4-6) Last Admin: 02/07/17 12:30 Dose: 2 mg Ondansetron HCl (Zofran) 4 mg IV Q4H PRN PRN Reason: Nausea And Vomiting Simvastatin (Zocor) 20 mg PO QHS [facility] Last Admin: 02/06/17 22:41 Dose: 20 mg Physical Examination Vital signs: Vital Signs Temp Pulse Resp BP Pulse Ox 97.9 F 81 24 128/89 95 02/03/17 22:49 02/03/17 22:49 02/03/17 22:49 02/03/17 22:49 02/03/17 22:49 Results - Laboratory Findings CBC and BMP: 02/05/17 15:18 02/08/17 07:26 PT/INR, D-dimer PT 14.8 Sec. (12.2-14.9) 02/04/17 10:16 INR 1.10 (0.87-1.13) 02/04/17 10:16 Abnormal lab findings: Abnormal Labs 02/04/17 02/04/17 02/04/17 10:14 10:16 10:16 MCH RDW Lymph % (Auto) Lymph # Seg Neutrophils % Seg Neutrophils # Sodium Potassium Chloride BUN 19 H Creatinine Glucose 116 H POC Glucose 107 H Hemoglobin A1c 6.9 H Calcium Albumin 3.7 L 02/04/17 02/04/17 02/04/17 16:21 20:47 21:27 MCH RDW Lymph % (Auto) Lymph # Seg Neutrophils % Seg Neutrophils # Sodium Potassium Chloride BUN Creatinine Glucose POC Glucose 206 H 335 H 306 H Hemoglobin A1c Calcium Albumin 02/05/17 02/05/17 02/05/17 05:08 08:01 12:34 MCH 26 L RDW 16.6 H Lymph % (Auto) Lymph # Seg Neutrophils % Seg Neutrophils # Sodium Potassium Chloride BUN Creatinine Glucose POC Glucose 245 H 311 H Hemoglobin A1c Calcium Albumin 02/05/17 02/05/17 02/05/17 15:18 15:18 16:11 MCH 26 L RDW 16.8 H Lymph % (Auto) 4.0 L Lymph # 0.4 L Seg Neutrophils % 89.5 H Seg Neutrophils # 9.5 H Sodium 135 L Potassium Chloride 97.6 L BUN 41 H Creatinine 1.6 H D Glucose 310 H POC Glucose 281 H Hemoglobin A1c Calcium Albumin 02/05/17 02/06/17 02/06/17 21:51 03:44 07:58 MCH RDW Lymph % (Auto) Lymph # Seg Neutrophils % Seg Neutrophils # Sodium Potassium Chloride BUN 49 H Creatinine 1.5 H Glucose 241 H POC Glucose 213 H 253 H Hemoglobin A1c Calcium 8.3 L Albumin 02/06/17 02/06/17 02/06/17 12:11 16:17 21:58 MCH RDW Lymph % (Auto) Lymph # Seg Neutrophils % Seg Neutrophils # Sodium Potassium Chloride BUN Creatinine Glucose POC Glucose 294 H 278 H 170 H Hemoglobin A1c Calcium Albumin 02/07/17 02/07/17 05:25 12:30 MCH RDW Lymph % (Auto) Lymph # Seg Neutrophils % Seg Neutrophils # Sodium Potassium 5.2 H Chloride BUN 61 H Creatinine 1.4 H Glucose 232 H POC Glucose 338 H Hemoglobin A1c Calcium Albumin
[2017-02-07] MEDS: NORVASC PO SCH (17:42)
[2017-02-07] MEDS: ZOCOR PO SCH (23:00)
[2017-02-07] MEDS: LEVEMIR SUB-Q SCH (23:06)
[2017-02-08] MEDS: DUONEB *Not for PRN Use IH SCH ×4 (01:04→19:32)
[2017-02-08] MEDS: NEURONTIN PO SCH ×3 (06:09→22:13)
[2017-02-08] MEDS: TESSALON PERLES PO SCH ×3 (06:09→22:13)
--- NOTE | 2017-02-08 08:05 | Progress Note ---
<DREW WOLFF - Last Filed: 02/08/17 14:07> Assessment and Plan Assessment and plan: Patient is a 66-year-old female with past medical history of e CHF, COPD, diabetes mellitus, CAD, hypertension, lupus, and fibromyalgia, who presents to the emergency department with complaining of shortness of breath.Until 3 days ago patient was at her normal baseline state of health. Patient developed difficulty of breathing 3 days ago, presented to ED and was admitted. Acute on chronic respiratory failure due to COPD excerbation and CHF exacerbation. Continue supplemental Oxygen. He currently has an O2 sats of 97% on 2 L nasal oxygen. Patient desaturated to low 80's on room air. She will therefore need home Oxygen at 2 L per minute. case managemment consulted Acute COPD exacerbation Continue on Duoneb every 6 hours Wean Solumedrol Continue on empiric IV Levaquin She is on Oxygen and will need home Oxygen on discharge Acute on chronic systolic Congestive heart failure Echocardiogram shows EF 20-25% on 02/04/2017 Restarted on beta blockers. Lisinopril on hold because of acute kidney injury Strict I&O's and daily weights Low-sodium/cardiac diet/fluid restriction Closely monitor electrolytes Cardiology following Lasix on hold because of AURA Acute kidney injury Aviod Nephro toxicity continue to Lasix and Lisinopril AURA improving. Creatinine 1.3 today Closely monitor BMP Diabetes mellitus Type 2 Accu-Chek before meals and at bedtime Sliding scale insulin/NovoLog consistent carbohydrate diet Swelling Swelling Bilateral lower extremity Negative VL doopler D-dimer pending Hypertensive urgency Continue Coreg. Closely monitor blood pressure Hyperlipidemia Continue on Zocor 20mg daily DVT prophylaxis Heparin History Interval history: Patient complains bilateral lower extremity swelling, dyspnea on exertion. Patient request for home O2 evaluation. Hospitalist Physical - Constitutional Vitals: Temp Pulse Resp BP Pulse Ox 97.8 F 64 22 154/61 95 02/08/17 06:19 02/08/17 06:19 02/08/17 06:19 02/08/17 06:19 02/08/17 06:19 General appearance: Present: mild distress, other (on 2LNc with SPO2 >95%) - EENT Eyes: Present: PERRL ENT: hearing intact - Neck Neck: Present: supple - Respiratory Respiratory effort: normal Respiratory: bilateral: wheezing - Cardiovascular Rhythm: regular Heart Sounds: Present: S1 & S2 - Extremities Extremity abnormal: edema (bilateral lower extremity) - Abdominal General gastrointestinal: soft, non-tender - Integumentary Integumentary: Present: clear, warm, dry - Psychiatric Psychiatric: appropriate mood/affect - Neurologic Neurologic: CNII-XII intact, moves all extremities - Allied Health Allied health notes reviewed: nursing Results - Labs CBC & Chem 7: 02/05/17 15:18 02/08/17 07:26 Labs: Laboratory Last Values WBC 10.6 K/mm3 (4.5-11.0) 02/05/17 15:18 RBC 4.38 M/mm3 (3.65-5.03) 02/05/17 15:18 Hgb 11.5 gm/dl (10.1-14.3) 02/05/17 15:18 Hct 34.7 % (30.3-42.9) 02/05/17 15:18 MCV 79 fl (79-97) 02/05/17 15:18 MCH 26 pg (28-32) L 02/05/17 15:18 MCHC 33 % (30-34) 02/05/17 15:18 RDW 16.8 % (13.2-15.2) H 02/05/17 15:18 Plt Count 182 K/mm3 (140-440) 02/05/17 15:18 Lymph % (Auto) 4.0 % (13.4-35.0) L 02/05/17 15:18 [place] % (Auto) 6.5 % (0.0-7.3) 02/05/17 15:18 Eos % (Auto) 0.0 % (0.0-4.3) 02/05/17 15:18 Baso % (Auto) 0.0 % (0.0-1.8) 02/05/17 15:18 Lymph # 0.4 K/mm3 (1.2-5.4) L 02/05/17 15:18 [place] # 0.7 K/mm3 (0.0-0.8) 02/05/17 15:18 Eos # 0.0 K/mm3 (0.0-0.4) 02/05/17 15:18 Baso # 0.0 K/mm3 (0.0-0.1) 02/05/17 15:18 Seg Neutrophils % 89.5 % (40.0-70.0) H 02/05/17 15:18 Seg Neutrophils # 9.5 K/mm3 (1.8-7.7) H 02/05/17 15:18 PT 14.8 Sec. (12.2-14.9) 02/04/17 10:16 INR 1.10 (0.87-1.13) 02/04/17 10:16 Sodium 140 mmol/L (137-145) 02/07/17 05:25 Potassium 4.1 mmol/L (3.6-5.0) D 02/07/17 18:01 Chloride 101.2 mmol/L (98-107) 02/07/17 05:25 Carbon Dioxide 22 mmol/L (22-30) 02/07/17 05:25 Anion Gap 22 mmol/L 02/07/17 05:25 BUN 61 mg/dL (7-17) H 02/07/17 05:25 Creatinine 1.4 mg/dL (0.7-1.2) H 02/07/17 05:25 Estimated GFR 38 ml/min 02/07/17 05:25 BUN/Creatinine Ratio 44 % 02/07/17 05:25 Glucose 232 mg/dL (65-100) H 02/07/17 05:25 POC Glucose 268 (70-105) H 02/07/17 22:28 Hemoglobin A1c 6.9 % (4-6) H 02/04/17 10:16 Calcium 8.8 mg/dL (8.4-10.2) 02/07/17 05:25 Total Bilirubin 1.00 mg/dL (0.1-1.2) 02/04/17 10:16 AST 19 units/L (5-40) 02/04/17 10:16 ALT 13 units/L (7-56) 02/04/17 10:16 Alkaline Phosphatase 120 units/L (35-129) 02/04/17 10:16 Troponin T < 0.010 ng/mL (0.00-0.029) 02/03/17 23:09 NT-Pro-B Natriuret Pep 8011 pg/mL (0-900) H 02/04/17 02:18 Total Protein 7.6 g/dL (6.3-8.2) 02/04/17 10:16 Albumin 3.7 g/dL (3.9-5) L 02/04/17 10:16 Albumin/Globulin Ratio 0.9 % 02/04/17 10:16 <STEPHENIE ZAIDI - Last Filed: 02/09/17 05:43> Assessment and Plan Assessment and plan: I saw and evaluated the patient. I agree with the findings and the plan of care as documented in the Nurse Practitioner's~note, with the following corrections and additions. patient with acute respiratory failure due to COPD exacerbation and CHF exacerbation. Hospitalist Physical - Constitutional Vitals: Temp Pulse Resp BP Pulse Ox 97.9 F 88 21 128/68 98 02/09/17 04:52 02/09/17 04:52 02/09/17 04:52 02/09/17 04:52 02/08/17 19:34 Results - Labs CBC & Chem 7: 02/05/17 15:18 02/08/17 07:26 Labs: Laboratory Last Values WBC 10.6 K/mm3 (4.5-11.0) 02/05/17 15:18 RBC 4.38 M/mm3 (3.65-5.03) 02/05/17 15:18 Hgb 11.5 gm/dl (10.1-14.3) 02/05/17 15:18 Hct 34.7 % (30.3-42.9) 02/05/17 15:18 MCV 79 fl (79-97) 02/05/17 15:18 MCH 26 pg (28-32) L 02/05/17 15:18 MCHC 33 % (30-34) 02/05/17 15:18 RDW 16.8 % (13.2-15.2) H 02/05/17 15:18 Plt Count 182 K/mm3 (140-440) 02/05/17 15:18 Lymph % (Auto) 4.0 % (13.4-35.0) L 02/05/17 15:18 [place] % (Auto) 6.5 % (0.0-7.3) 02/05/17 15:18 Eos % (Auto) 0.0 % (0.0-4.3) 02/05/17 15:18 Baso % (Auto) 0.0 % (0.0-1.8) 02/05/17 15:18 Lymph # 0.4 K/mm3 (1.2-5.4) L 02/05/17 15:18 [place] # 0.7 K/mm3 (0.0-0.8) 02/05/17 15:18 Eos # 0.0 K/mm3 (0.0-0.4) 02/05/17 15:18 Baso # 0.0 K/mm3 (0.0-0.1) 02/05/17 15:18 Seg Neutrophils % 89.5 % (40.0-70.0) H 02/05/17 15:18 Seg Neutrophils # 9.5 K/mm3 (1.8-7.7) H 02/05/17 15:18 PT 14.8 Sec. (12.2-14.9) 02/04/17 10:16 INR 1.10 (0.87-1.13) 02/04/17 10:16 D-Dimer 324.47 ng/mlDDU (0-234) H 02/08/17 14:20 Sodium 143 mmol/L (137-145) 02/08/17 07:26 Potassium 3.9 mmol/L (3.6-5.0) 02/08/17 07:26 Chloride 105.5 mmol/L (98-107) 02/08/17 07:26 Carbon Dioxide 21 mmol/L (22-30) L 02/08/17 07:26 Anion Gap 20 mmol/L 02/08/17 07:26 BUN 67 mg/dL (7-17) H 02/08/17 07:26 Creatinine 1.3 mg/dL (0.7-1.2) H 02/08/17 07:26 Estimated GFR 41 ml/min 02/08/17 07:26 BUN/Creatinine Ratio 52 % 02/08/17 07:26 Glucose 221 mg/dL (65-100) H 02/08/17 07:26 POC Glucose 447 (70-105) H 02/08/17 20:41 Hemoglobin A1c 6.9 % (4-6) H 02/04/17 10:16 Calcium 8.2 mg/dL (8.4-10.2) L 02/08/17 07:26 Total Bilirubin 1.00 mg/dL (0.1-1.2) 02/04/17 10:16 AST 19 units/L (5-40) 02/04/17 10:16 ALT 13 units/L (7-56) 02/04/17 10:16 Alkaline Phosphatase 120 units/L (35-129) 02/04/17 10:16 Troponin T < 0.010 ng/mL (0.00-0.029) 02/03/17 23:09 NT-Pro-B Natriuret Pep 8011 pg/mL (0-900) H 02/04/17 02:18 Total Protein 7.6 g/dL (6.3-8.2) 02/04/17 10:16 Albumin 3.7 g/dL (3.9-5) L 02/04/17 10:16 Albumin/Globulin Ratio 0.9 % 02/04/17 10:16
[2017-02-08 08:35] LABS: Calcium 8.2 mg/dL (8.4-10.2); Chloride 105.5 mmol/L (98-107); Potassium 3.9 mmol/L (3.6-5.0)
[2017-02-08] MEDS: LOVENOX SUB-Q SCH (10:02)
[2017-02-08] MEDS: NOVOLOG SUB-Q SCH ×4 (10:04→22:15)
[2017-02-08] MEDS: COREG PO SCH ×2 (10:05→22:16)
[2017-02-08] MEDS: BABY ASPIRIN PO SCH (10:05)
[2017-02-08] MEDS: celeXA PO SCH (10:05)
[2017-02-08] MEDS: NORVASC PO SCH (10:06)
--- NOTE | 2017-02-08 11:17 | Consultation ---
CONSULTING PHYSICIAN: Dr. Strange. REASON FOR CONSULT: Acute COPD exacerbation. CHIEF COMPLAINT AND HISTORY OF PRESENT ILLNESS: The patient is a 66-year-old female with past medical history significant amongst other things for a diagnosis of congestive heart failure, chronic obstructive lung disease, but also most likely obstructive sleep apnea for which she states she had a test many years ago, but passed, came into the Emergency Room complaining of about 3 days of increasing shortness of breath. She was requiring use of inhaled nebulizers at home more than normal. She is on albuterol and what she describes as probably Combivent. On the day of presentation, she felt like she was going to pass out with significant dyspnea on exertion while working in the house. She denies being on home oxygen. She was evaluated in the Emergency Room and essentially diagnosed with COPD exacerbation. With regards to tobacco, she has a 10+ pack year smoking history, but quit smoking about 4 years ago. She denied any sick contacts. She denied any upper or lower respiratory tract type symptoms. Denied any hemoptysis. She had a cough. No nausea, no vomiting, no overt aspiration. With regards to lower extremity swelling, she states she has chronic left lower extremity swelling, but her legs are not more swelling than baseline. That is the history that I have. PAST MEDICAL HISTORY: Again, coronary artery disease, chronic obstructive lung disease, diabetes, heart failure, hypertension, systemic lupus erythematosus, and fibromyalgia. PAST SURGICAL HISTORY: Hysterectomy. MEDICATIONS: She was on at the time I stopped by to see her were reviewed. Pertinent medications included the following: DuoNeb nebulizer treatments nebulized q.6 hours, aspirin 81 mg p.o. daily, Lovenox 40 mg subcutaneous daily, insulin via sliding scale as well as insulin 20 units subQ at bedtime, Levaquin 750 mg IV daily, Solu-Medrol 60 mg IV q.8 hours, p.r.n. morphine. ALLERGIES: TO PENICILLINS. Nature of this allergy is unknown. DIET: Obese lady. She admits to gaining weight since the sleep study many years ago in the short time, though no significant weight changes. FAMILY AND SOCIAL HISTORY: Lives in the community. A [id number] history of tobacco smoke, quit smoking about 4 years ago. Denies current alcohol or illicit drug use or abuse. There is a family history of diabetes and hypertension. REVIEW OF SYSTEMS: In particular, she denied any loss of consciousness, no new onset seizures or focal weakness. No gross hematochezia or melena. Complete 13-system review of systems obtained. Pertinent positives and/or negatives as in body of the history above, otherwise they are noncontributory. PHYSICAL EXAMINATION: VITAL SIGNS: At presentation in the Emergency Room and since she has been afebrile, temperature was 97.9 Fahrenheit, pulse 81, respiratory rate 24, blood pressure 128/89. Oxygen sats were 95%. Inspired oxygen concentration was not recorded. At the time I saw her, she was on 2 liters nasal cannula. GENERAL: Shows alert. She was oriented. She was talking to me in mostly full sentences, but definitely in mild respiratory distress with occasional coughing. HEENT: Normocephalic, atraumatic. No scleral icterus. No conjunctival erythema. Oropharynx is a Mallampati #4 oropharynx. Oropharynx is moist. No palpable lymph nodes in the supraclavicular or submandibular lymph node chains and no goiter. LUNGS: Auscultation of both lung hall revealed bilateral expiratory wheezes and diminished bilateral air movement with a slightly prolonged expiratory phase. HEART: Sounds 1 and 2 are heard. They were regular in rate and rhythm at the time of my evaluation. No rubs, no murmurs. No jugular venous distention was noted. ABDOMEN: Soft, full, bowel sounds are positive, nontender, no palpable hepatosplenomegaly. EXTREMITIES: Without overt digital clubbing, no cyanosis. She has about trace to 1+ pedal edema on the left with trace pedal edema on the right that is chronic. Dorsalis pedis pulses are palpable bilaterally. NEUROLOGIC: The pupils are equal, round, reactive to light and accommodation. Extraocular muscle movements are intact. She moves all 4 extremities spontaneously. No spasticity. No fasciculations. The skin is of normal turgor. She does have old healed scar/rash to the anterior lower knox on the left side and chronic venous stasis changes on that lower extremity. Otherwise, no cellulitis, no erythema. LABORATORY DATA: From my review are as follows: Admission labs, white count on admission was 8900 with a hemoglobin of 12.2, hematocrit of 38.6, and platelet count of 213. INR 1.10. Serum sodium was 138, potassium 4.3, chloride 99, bicarb 24, BUN 19, creatinine 1.1, glucose was 103. Troponin was within normal limits. BNP was significantly elevated at 8011 at presentation. Current BUN is 61 with a creatinine of 1.4. No microbiology studies for my review. Chest x-ray was done at admission. I have reviewed it personally. There is gross cardiomegaly. There is significant distention of the right main pulmonary artery trunk. I cannot rule out small bilateral pleural effusions, increased interstitial markings bilaterally, really most suggestive of chronic interstitial markings with perhaps mild interstitial edema, no gross pneumothorax, no gross bony fractures certainly suggestive of pulmonary hypertension. A 2D echocardiogram was done at presentation. I reviewed the report. Ejection fraction 20-25%. She also has abnormal left ventricular diastolic filling. There was less than 50% respiratory change in the inferior vena cava suggesting she could benefit from some diuresis in the clinical setting. Evidence of mild pulmonary hypertension; however, they did not give the right ventricular systolic pressure. ASSESSMENT AND PLAN: We have an elderly lady really in with an exacerbation of chronic obstructive pulmonary disease, but also an element of congestive heart failure exacerbation. ASSESSMENT: 1. Acute hypoxemic respiratory failure. 2. Acute chronic obstructive pulmonary disease exacerbation. 3. Acute congestive heart failure exacerbation. 4. Likely obstructive sleep apnea, untreated. 5. Morbid obesity. 6. Now an acute kidney injury. 7. Hyperkalemia. PLAN: 1. Continue current bronchodilators with short acting DuoNeb therapy. 2. Add long acting bronchodilator in the form of Brovana, but also add inhaled corticosteroids. 3. We will begin taper off the systemic steroids, Solu-Medrol at this point. 4. I will repeat the chest x-ray in the morning to see what things are looking like. 5. She may well benefit from further evaluation for pulmonary hypertension that may include right heart catheterization, especially considering she also has evidence of connective tissue disorders in the form of systemic lupus erythematosus and may be at an increased risk for noncardiogenic pulmonary hypertension. We will continue DVT prophylaxis. I will elect to also evaluate her for venous thromboembolic disorder. A D-dimer level will be ordered. Bilateral lower extremity Dopplers will be ordered and we will see what we get on these results based on that. I will make a decision on ____ the workup. I have also encouraged her to get a pneumonia vaccination, which she had said she was told she does not need, she definitely needs it. Thank you very much for the consult, Dr. Strange. We will follow along. We will make further recommendations as picture progresses/becomes clearer. JOB# [id number] YEVGENIY/NTS
--- NOTE | 2017-02-08 13:34 | Consultation ---
History of Present Illness Consult date: 02/08/17 Consult reason: shortness of breath History of present illness: The patient is followed by Dr. Zapata in our office. She has a history of nonischemic cardiomyopathy and chronic systolic heart failure as well as COPD. She presented this time with a history of progressive dyspnea. Her CXR showed no acute findings upon presentation. Past History Past Medical History: COPD, diabetes, heart failure (chronic systolic heart failure. Echocardiogram of July 2016 revealed an ejection fraction of 3540 percent.), hypertension, renal failure, other ( lupus, and fibromyalgia, normal coronary arteries in July 2014) Past Surgical History: hysterectomy Social history: denies: smoking, alcohol abuse Family history: denies: CAD Medications and Allergies Allergies Allergy/AdvReac Type Severity Reaction Status Date / Time Penicillins Allergy Rash Verified 12/15/13 20:43 Home Medications Medication Instructions Recorded Confirmed Last Taken Type Febuxostat [Uloric] 80 mg PO QDAY 12/16/13 02/04/17 02/02/17 History Carvedilol [Coreg] 6.25 mg PO BID 02/04/17 02/04/17 02/02/17 History Citalopram Hydrobromide [Celexa] 40 mg PO DAILY 02/04/17 02/04/17 02/02/17 History Gabapentin [Neurontin] 600 mg PO QID 02/04/17 02/04/17 02/02/17 History Insulin Detemir [Levemir Flextouch] 20 units SQ QHS 02/04/17 02/04/17 Unknown History Lisinopril [Zestril] 20 mg PO QDAY 02/04/17 02/04/17 02/02/17 History Pravastatin [Pravachol] 40 mg PO QHS 02/04/17 02/04/17 02/02/17 History Active Meds: Active Medications Acetaminophen (Tylenol) 650 mg PO Q4H PRN PRN Reason: Pain MILD(1-3)/Fever >100.5/ACUNA Last Admin: 02/06/17 06:44 Dose: 650 mg Albuterol (Proventil) 2.5 mg IH Q4H PRN PRN Reason: Shortness Of Breath Albuterol/Ipratropium (Duoneb *Not For Prn Use*) 1 ampul IH Q6HRT [facility] Last Admin: 02/08/17 09:11 Dose: 1 ampul Amlodipine Besylate (Norvasc) 5 mg PO QDAY [facility] Last Admin: 02/08/17 10:06 Dose: 5 mg Aspirin (Baby Aspirin) 81 mg PO DAILY [facility] Last Admin: 02/08/17 10:05 Dose: 81 mg Benzonatate (Tessalon Perles) 100 mg PO Q8HR [facility] Last Admin: 02/08/17 13:06 Dose: 100 mg Bisacodyl (Dulcolax) 10 mg DE QDAY PRN PRN Reason: Constipation unrelieved by MOM Carvedilol (Coreg) 6.25 mg PO BID [facility] Last Admin: 02/08/17 10:05 Dose: 6.25 mg Citalopram Hydrobromide (Celexa) 40 mg PO QDAY [facility] Last Admin: 02/08/17 10:05 Dose: 40 mg Dextrose (D50w (25gm) Syringe) 50 ml IV PRN PRN PRN Reason: Hypoglycemia Enoxaparin Sodium (Lovenox) 40 mg SUB-Q QDAY [facility] Last Admin: 02/08/17 10:02 Dose: 40 mg Gabapentin (Neurontin) 600 mg PO Q8HR [facility] Last Admin: 02/08/17 13:06 Dose: 600 mg Levofloxacin/Dextrose (Levaquin 750mg/150ml) 750 mg in 150 mls @ 100 mls/hr IV Q24H [facility] PRN Reason: Protocol Last Admin: 02/07/17 12:29 Dose: 100 mls/hr Insulin Aspart (Novolog) 0 units SUB-Q [facility] PRN Reason: Protocol Last Admin: 02/08/17 13:05 Dose: 1 units Insulin Aspart (Novolog) 0 units SUB-Q QHS [facility] PRN Reason: Protocol Last Admin: 02/07/17 23:08 Dose: 4 units Insulin Detemir (Levemir) 20 units SUB-Q QHS [facility] Last Admin: 02/07/17 23:06 Dose: 20 units Methylprednisolone Sodium Succinate (Solu-Medrol) 40 mg IV Q8H [facility] Last Admin: 02/08/17 13:05 Dose: 40 mg Miscellaneous Medication (Febuxostat [Uloric]) 80 mg PO QDAY [facility] Morphine Sulfate (Morphine) 2 mg IV Q4H PRN PRN Reason: Pain, Moderate (4-6) Last Admin: 02/07/17 12:30 Dose: 2 mg Ondansetron HCl (Zofran) 4 mg IV Q4H PRN PRN Reason: Nausea And Vomiting Simvastatin (Zocor) 20 mg PO QHS [facility] Last Admin: 02/07/17 23:00 Dose: 20 mg Review of Systems Constitutional: no fever, no chills Ears, nose, mouth and throat: no ear pain, no ear discharge, no sore throat Cardiovascular: orthopnea, shortness of breath, no chest pain, no edema Respiratory: shortness of breath, no cough, no hemoptysis Gastrointestinal: no abdominal pain, no nausea, no vomiting, no diarrhea, no constipation Genitourinary Female: no dysuria, no urinary frequency Rectal: no pain, no bleeding Musculoskeletal: no neck stiffness, no neck pain, no myalgias Integumentary: no rash, no pruritis Neurological: no weakness, no parathesias, no headaches Endocrine: no cold intolerance, no heat intolerance Hematologic/Lymphatic: no easy bruising, no easy bleeding Allergic/Immunologic: no urticaria, no wheezing, no angioedema Physical Examination Vital Signs Last Vital Signs Temp 97.9 F 02/08/17 13:07 Pulse 61 02/08/17 13:07 Resp 18 02/08/17 13:07 BP 158/69 02/08/17 13:07 Pulse Ox 97 02/08/17 13:07 General appearance: no acute distress HEENT: Positive: EOMI, Normocephaly, Mucus Membranes Moist Neck: Positive: neck supple, trachea midline, JVD/HJR Cardiac: Positive: Reg Rate and Rhythm, S1/S2 Lungs: Positive: Rhonchi Neuro: Positive: Grossly Intact Abdomen: Positive: Soft, Active Bowel Sounds. Negative: Tender Skin: Positive: Clear. Negative: Rash Musculoskeletal: Normal Range of Motion Extremities: Present: normal. Absent: edema Results 02/05/17 15:18 02/08/17 07:26 Comprehensive Metabolic Panel 02/07/17 02/08/17 Range/Units 18:01 07:26 Sodium 143 (137-145) mmol/L Potassium 4.1 D 3.9 (3.6-5.0) mmol/L Chloride 105.5 (98-107) mmol/L Carbon Dioxide 21 L (22-30) mmol/L BUN 67 H (7-17) mg/dL Creatinine 1.3 H (0.7-1.2) mg/dL Glucose 221 H (65-100) mg/dL Calcium 8.2 L (8.4-10.2) mg/dL - Imaging and Cardiology EKG: other EKG interpretations - Telemetry EKG Rhythm: Sinus Rhythm - EKG Sinus rhythms and dysrhythmias: sinus rhythm Assessment and Plan Her cardiac status appears stable at this time. I will optimize her antihypertensive regimen. - Patient Problems (1) COPD exacerbation Current Visit: Yes Status: Acute (2) Nonischemic cardiomyopathy Current Visit: Yes Status: Chronic (3) Chronic systolic heart failure Current Visit: Yes Status: Chronic (4) Hypertension Current Visit: Yes Status: Chronic Qualifiers: Hypertension type: essential hypertension Qualified Code(s): I10 - Essential (primary) hypertension (5) CKD (chronic kidney disease) stage 3, GFR 30-59 ml/min Current Visit: Yes Status: Chronic (6) Diabetes mellitus Current Visit: Yes Status: Chronic Qualifiers: Diabetes mellitus type: D Diabetes mellitus complication status: D Diabetes mellitus complication detail: D Diabetic retinopathy severity: D Proliferative retinopathy type: P Diabetes mellitus macular edema: D 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
[2017-02-08] MEDS: LEVAQUIN 750MG/150ML 750 MG/150 ML BAG IV SCH ×2 (13:37→13:42)
[2017-02-08] MEDS: APRESOLINE PO SCH ×2 (18:02→22:16)
--- NOTE | 2017-02-08 19:12 | Progress Note ---
Assessment and Plan Patient alert, awake and resting on 3 litres O2 and saturation 97%. No complaint of chest pain or shortness of breath at this time. Patient hAS HEAVY HISTORY OF SMOKING 1 PACK X 60 YEARS.Stopped smoking 4 years ago.Patient also complaining swelling of legs. - Patient Problems (1) COPD with acute exacerbation Current Visit: Yes Status: Acute Plan to address problem: O2 supplementation 3 litres. Albuterol/atrovent aerosol treatments q 6 hours. Continue I/V solumedral. Continue S/C Lovenox. (2) Leg edema, left Current Visit: Yes Status: Acute Plan to address problem: Ultrasound of legs results pending. (3) CHF (congestive heart failure) Current Visit: Yes Status: Acute Qualifiers: Congestive heart failure type: C Congestive heart failure chronicity: C Plan to address problem: Management as per cardiology. (4) CKD (chronic kidney disease) stage 3, GFR 30-59 ml/min Current Visit: Yes Status: Chronic Plan to address problem: Management as per nephrology. 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 (6) H/O systemic lupus erythematosus (SLE) Current Visit: Yes Status: Chronic Plan to address problem: Patient says her SLE under remission. Management as per primary care. (7) Hypertension Current Visit: Yes Status: Chronic Qualifiers: Hypertension type: essential hypertension Qualified Code(s): I10 - Essential (primary) hypertension Plan to address problem: Management as per primary care. Subjective Date of service: 02/08/17 Interval history: Patient alert, awake and resting on 3 litres O2 and saturation 97%. No complaint of chest pain or shortness of breath at this time. Patient hAS HEAVY HISTORY OF SMOKING 1 PACK X 60 YEARS.Stopped smoking 4 years ago.Patient also complaining swelling of legs. Objective Vital Signs - 12hr 02/08/17 02/08/17 02/08/17 09:11 09:14 09:22 Temperature Pulse Rate Pulse Rate [ 76 67 Anterior Bilateral Throughout] Respiratory Rate Respiratory 18 18 Rate [Anterior Bilateral Throughout] Respiratory Rate [Left Ankle] Blood Pressure Blood Pressure [Left] O2 Sat by Pulse 96 Oximetry 02/08/17 02/08/17 02/08/17 09:35 10:00 10:05 Temperature 98.2 F Pulse Rate 63 63 Pulse Rate [ Anterior Bilateral Throughout] Respiratory 20 Rate Respiratory Rate [Anterior Bilateral Throughout] Respiratory 18 Rate [Left Ankle] Blood Pressure 160/83 Blood Pressure 160/83 [Left] O2 Sat by Pulse Oximetry 02/08/17 02/08/17 02/08/17 10:06 13:07 14:00 Temperature 97.9 F Pulse Rate 63 61 60 Pulse Rate [ Anterior Bilateral Throughout] Respiratory 18 Rate Respiratory Rate [Anterior Bilateral Throughout] Respiratory Rate [Left Ankle] Blood Pressure 160/83 Blood Pressure 158/69 [Left] O2 Sat by Pulse 97 Oximetry 02/08/17 02/08/17 02/08/17 16:03 16:22 17:24 Temperature 98.3 F Pulse Rate 70 Pulse Rate [ 71 65 Anterior Bilateral Throughout] Respiratory 20 Rate Respiratory 18 18 Rate [Anterior Bilateral Throughout] Respiratory Rate [Left Ankle] Blood Pressure Blood Pressure 160/116 [Left] O2 Sat by Pulse 97 Oximetry Constitutional: no acute distress, alert, other (Obese) Eyes: non-icteric ENT: oropharynx moist Neck: supple, no lymphadenopathy Ascultation: Bilateral: diminished breath sounds Cardiovascular: regular rate and rhythm Gastrointestinal: normoactive bowel sounds, soft, non-tender Integumentary: other (Echimosis on the leg.) Extremities: no cyanosis, other (Trace edema.) Neurologic: normal mental status, non-focal exam, pupils equal and round, CN II- XII normal Psychiatric: mood appropriate CBC and BMP: 02/05/17 15:18 02/08/17 07:26 ABG, PT/INR, D-dimer: PT/INR, D-dimer PT 14.8 Sec. (12.2-14.9) 02/04/17 10:16 INR 1.10 (0.87-1.13) 02/04/17 10:16 D-Dimer 324.47 ng/mlDDU (0-234) H 02/08/17 14:20 Abnormal lab findings: Abnormal Labs 02/04/17 02/04/17 02/04/17 10:14 10:16 10:16 MCH RDW Lymph % (Auto) Lymph # Seg Neutrophils % Seg Neutrophils # D-Dimer Sodium Potassium Chloride Carbon Dioxide BUN 19 H Creatinine Glucose 116 H POC Glucose 107 H Hemoglobin A1c 6.9 H Calcium Albumin 3.7 L 02/04/17 02/04/17 02/04/17 16:21 20:47 21:27 MCH RDW Lymph % (Auto) Lymph # Seg Neutrophils % Seg Neutrophils # D-Dimer Sodium Potassium Chloride Carbon Dioxide BUN Creatinine Glucose POC Glucose 206 H 335 H 306 H Hemoglobin A1c Calcium Albumin 02/05/17 02/05/17 02/05/17 05:08 08:01 12:34 MCH 26 L RDW 16.6 H Lymph % (Auto) Lymph # Seg Neutrophils % Seg Neutrophils # D-Dimer Sodium Potassium Chloride Carbon Dioxide BUN Creatinine Glucose POC Glucose 245 H 311 H Hemoglobin A1c Calcium Albumin 02/05/17 02/05/17 02/05/17 15:18 15:18 16:11 MCH 26 L RDW 16.8 H Lymph % (Auto) 4.0 L Lymph # 0.4 L Seg Neutrophils % 89.5 H Seg Neutrophils # 9.5 H D-Dimer Sodium 135 L Potassium Chloride 97.6 L Carbon Dioxide BUN 41 H Creatinine 1.6 H D Glucose 310 H POC Glucose 281 H Hemoglobin A1c Calcium Albumin 02/05/17 02/06/17 02/06/17 21:51 03:44 07:58 MCH RDW Lymph % (Auto) Lymph # Seg Neutrophils % Seg Neutrophils # D-Dimer Sodium Potassium Chloride Carbon Dioxide BUN 49 H Creatinine 1.5 H Glucose 241 H POC Glucose 213 H 253 H Hemoglobin A1c Calcium 8.3 L Albumin 02/06/17 02/06/17 02/06/17 12:11 16:17 21:58 MCH RDW Lymph % (Auto) Lymph # Seg Neutrophils % Seg Neutrophils # D-Dimer Sodium Potassium Chloride Carbon Dioxide BUN Creatinine Glucose POC Glucose 294 H 278 H 170 H Hemoglobin A1c Calcium Albumin 02/07/17 02/07/17 02/07/17 05:25 08:34 12:30 MCH RDW Lymph % (Auto) Lymph # Seg Neutrophils % Seg Neutrophils # D-Dimer Sodium Potassium 5.2 H Chloride Carbon Dioxide BUN 61 H Creatinine 1.4 H Glucose 232 H POC Glucose 209 H 338 H Hemoglobin A1c Calcium Albumin 02/07/17 02/07/17 02/08/17 16:31 22:28 07:26 MCH RDW Lymph % (Auto) Lymph # Seg Neutrophils % Seg Neutrophils # D-Dimer Sodium Potassium Chloride Carbon Dioxide 21 L BUN 67 H Creatinine 1.3 H Glucose 221 H POC Glucose 190 H 268 H Hemoglobin A1c Calcium 8.2 L Albumin 02/08/17 02/08/17 02/08/17 08:07 11:50 14:20 MCH RDW Lymph % (Auto) Lymph # Seg Neutrophils % Seg Neutrophils # D-Dimer 324.47 H Sodium Potassium Chloride Carbon Dioxide BUN Creatinine Glucose POC Glucose 234 H 321 H Hemoglobin A1c Calcium Albumin Chest x-ray: report reviewed (No acute pulmonary process reported.), image reviewed
[2017-02-08] MEDS ORDERED: LEVAQUIN PO SCH (22:00)
[2017-02-08] MEDS: LEVEMIR SUB-Q SCH (22:14)
[2017-02-08] MEDS: ZOCOR PO SCH (22:30)
[2017-02-09] MEDS: DUONEB *Not for PRN Use IH SCH ×3 (02:13→14:56)
[2017-02-09 04:52] VITALS: BP 128/68
[2017-02-09] MEDS: TESSALON PERLES PO SCH ×2 (06:42→14:26)
[2017-02-09] MEDS: NEURONTIN PO SCH ×2 (06:42→14:26)
[2017-02-09] MEDS: TYLENOL PO PRN (06:54)
[2017-02-09] MEDS: NOVOLOG SUB-Q SCH ×3 (07:40→16:15)
[2017-02-09] MEDS ORDERED: LEVEMIR SUB-Q ONE (08:00)
--- NOTE | 2017-02-09 08:24 | XRay Report ---
PORTABLE CHEST INDICATION: Shortness of breath, swelling of legs. COMPARISON: 02/03/2017 FINDINGS: Portable, frontal chest radiograph demonstrates stable cardiomediastinal silhouette with prominent kosta and bronchovascular markings centrally/possible pulmonary arterial hypertension. Clear lungs. Unremarkable bones. CONCLUSION: Mild cardiomegaly and pulmonary arterial hypertension without acute chest process, as described. Please correlate. Thank you for the opportunity to participate in this patient's care.
--- NOTE | 2017-02-09 10:17 | Progress Note ---
Hospitalist Physical - Constitutional Vitals: Temp Pulse Resp BP Pulse Ox 97.9 F 80 20 128/68 98 02/09/17 04:52 02/09/17 09:45 02/09/17 09:45 02/09/17 04:52 02/09/17 09:44 General appearance: Present: no acute distress Results - Labs CBC & Chem 7: 02/05/17 15:18 02/08/17 07:26 Labs: Laboratory Last Values WBC 10.6 K/mm3 (4.5-11.0) 02/05/17 15:18 RBC 4.38 M/mm3 (3.65-5.03) 02/05/17 15:18 Hgb 11.5 gm/dl (10.1-14.3) 02/05/17 15:18 Hct 34.7 % (30.3-42.9) 02/05/17 15:18 MCV 79 fl (79-97) 02/05/17 15:18 MCH 26 pg (28-32) L 02/05/17 15:18 MCHC 33 % (30-34) 02/05/17 15:18 RDW 16.8 % (13.2-15.2) H 02/05/17 15:18 Plt Count 182 K/mm3 (140-440) 02/05/17 15:18 Lymph % (Auto) 4.0 % (13.4-35.0) L 02/05/17 15:18 Clarke % (Auto) 6.5 % (0.0-7.3) 02/05/17 15:18 Eos % (Auto) 0.0 % (0.0-4.3) 02/05/17 15:18 Baso % (Auto) 0.0 % (0.0-1.8) 02/05/17 15:18 Lymph # 0.4 K/mm3 (1.2-5.4) L 02/05/17 15:18 Clarke # 0.7 K/mm3 (0.0-0.8) 02/05/17 15:18 Eos # 0.0 K/mm3 (0.0-0.4) 02/05/17 15:18 Baso # 0.0 K/mm3 (0.0-0.1) 02/05/17 15:18 Seg Neutrophils % 89.5 % (40.0-70.0) H 02/05/17 15:18 Seg Neutrophils # 9.5 K/mm3 (1.8-7.7) H 02/05/17 15:18 PT 14.8 Sec. (12.2-14.9) 02/04/17 10:16 INR 1.10 (0.87-1.13) 02/04/17 10:16 D-Dimer 324.47 ng/mlDDU (0-234) H 02/08/17 14:20 Sodium 143 mmol/L (137-145) 02/08/17 07:26 Potassium 3.9 mmol/L (3.6-5.0) 02/08/17 07:26 Chloride 105.5 mmol/L (98-107) 02/08/17 07:26 Carbon Dioxide 21 mmol/L (22-30) L 02/08/17 07:26 Anion Gap 20 mmol/L 02/08/17 07:26 BUN 67 mg/dL (7-17) H 02/08/17 07:26 Creatinine 1.3 mg/dL (0.7-1.2) H 02/08/17 07:26 Estimated GFR 41 ml/min 02/08/17 07:26 BUN/Creatinine Ratio 52 % 02/08/17 07:26 Glucose 221 mg/dL (65-100) H 02/08/17 07:26 POC Glucose 212 (70-105) H 02/09/17 07:39 Hemoglobin A1c 6.9 % (4-6) H 02/04/17 10:16 Calcium 8.2 mg/dL (8.4-10.2) L 02/08/17 07:26 Total Bilirubin 1.00 mg/dL (0.1-1.2) 02/04/17 10:16 AST 19 units/L (5-40) 02/04/17 10:16 ALT 13 units/L (7-56) 02/04/17 10:16 Alkaline Phosphatase 120 units/L (35-129) 02/04/17 10:16 Troponin T < 0.010 ng/mL (0.00-0.029) 02/03/17 23:09 NT-Pro-B Natriuret Pep 8011 pg/mL (0-900) H 02/04/17 02:18 Total Protein 7.6 g/dL (6.3-8.2) 02/04/17 10:16 Albumin 3.7 g/dL (3.9-5) L 02/04/17 10:16 Albumin/Globulin Ratio 0.9 % 02/04/17 10:16
[2017-02-09] MEDS: COREG PO SCH (10:40)
[2017-02-09] MEDS: APRESOLINE PO SCH (10:40)
[2017-02-09] MEDS: BABY ASPIRIN PO SCH (10:40)
[2017-02-09] MEDS: LOVENOX SUB-Q SCH (10:40)
[2017-02-09] MEDS: celeXA PO SCH (10:40)
[2017-02-09] MEDS: NORVASC PO SCH (10:40)
--- NOTE | 2017-02-09 10:47 | Nuclear Medicine Report ---
VENTILATION PERFUSION SCAN INDICATION: Shortness of breath, swelling of legs. COMPARISON: None similar. FINDINGS: VQ scan performed in anterior, posterior, lateral and oblique projections. 5 mCi of technetium 99m MAA was used for the perfusion assessment while 15 millicuries of Xenon 133 was utilized for the ventilation portion of the study. Ventilation images demonstrate diminished radiotracer distribution at the right lung apex. Moderate right and mild left lung radiotracer retention noted greatest toward the bases. Small subsegmental defects at the bases may also be present. The perfusion is also heterogeneous, though correlating with the ventilation without large lobar or definite segmental defects. An accompanying chest radiograph from today demonstrates cardiomegaly and pulmonary arterial hypertension with grossly clear lungs. CONCLUSION: Low probability exam for pulmonary embolism. Air trapping noted. Please correlate. Thank you for the opportunity to participate in this patient's care.
--- NOTE | 2017-02-09 11:29 | Progress Note ---
Assessment and Plan V/Q scan with no acute process. Currently stable cardiac status. Pt may discharge home from cardiology standpoint. Recommend follow up in our office with Dr. Zapata within 1-2 weeks of hospital discharge ([phone]). The patient has been seen in conjunction with Dr. Guzman who agrees with the assessment and plan of care. - Patient Problems (1) COPD exacerbation Current Visit: Yes Status: Acute (2) Nonischemic cardiomyopathy Current Visit: Yes Status: Chronic (3) Chronic systolic heart failure Current Visit: Yes Status: Chronic (4) Hypertension Current Visit: Yes Status: Chronic Qualifiers: Hypertension type: essential hypertension Qualified Code(s): I10 - Essential (primary) hypertension (5) CKD (chronic kidney disease) stage 3, GFR 30-59 ml/min Current Visit: Yes Status: Chronic (6) Diabetes mellitus Current Visit: Yes Status: Chronic Qualifiers: Diabetes mellitus type: D Diabetes mellitus complication status: D Diabetes mellitus complication detail: D Diabetic retinopathy severity: D Proliferative retinopathy type: P Diabetes mellitus macular edema: D 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 Objective Last Vital Signs Temp 97.9 F 02/09/17 04:52 Pulse 80 02/09/17 09:45 Resp 20 02/09/17 09:45 BP 128/68 02/09/17 04:52 Pulse Ox 98 02/09/17 09:44 - Physical Examination General: Appears Well HEENT: Positive: EOMI, Normocephaly, Mucus Membranes Moist Neck: Positive: neck supple, trachea midline, JVD/HJR Cardiac: Positive: Reg Rate and Rhythm, S1/S2 Lungs: Positive: Decreased Breath Sounds Neuro: Positive: Grossly Intact Abdomen: Positive: Soft, Active Bowel Sounds. Negative: Tender Skin: Positive: Clear. Negative: Rash Musculoskeletal: Normal Range of Motion Extremities: Present: normal. Absent: edema - Imaging and Cardiology EKG: other
[2017-02-09 12:42] LABS: ISTAT Base Excess -2; ISTAT HCO3 22.8; ISTAT PCO2 36.4 (35-45); ISTAT PH 7.405 (7.35-7.45); ISTAT PO2 45 (80-105); ISTAT SO2 81; ISTAT TCO2 24
--- NOTE | 2017-02-09 13:27 | Discharge Summary ---
<STEPHENIE ZAIDI - Last Filed: 02/09/17 15:56> Providers - Providers Date of Admission: 02/04/17 08:48 Attending physician: STEPHENIE ZAIDI 02/06/17 12:06 Consult to Physician [CONS] Routine Consulting Provider: CEDRIC MADDEN Reason For Exam: COPD exacerbation Place consult to:: [facility] Notified:: service Phone number called:: [phone] Was contact made?: Yes Time called:: 09:46 02/07/17 09:59 Consult to Case Management [CONS] Routine Services Needed at Discharge: Home O2 Notified:: case Mngt Comment:: Home oxygen at 2 l/min 02/07/17 15:13 Consult to Physician [CONS] Routine Consulting Provider: DANIELLE ADAMS Reason For Exam: acute on chronic systolic CHF Place consult to:: placed on list Notified:: no Primary care physician: KAVON AGUIRRE Hospitalization Condition: Good Disposition: DC-01 TO HOME OR SELFCARE Exam - Constitutional Vitals: Temp Pulse Resp BP Pulse Ox 97.9 F 88 18 128/68 98 02/09/17 04:52 02/09/17 14:56 02/09/17 14:56 02/09/17 04:52 02/09/17 09:44 Plan Additional Instructions: 1.Follow up with Dr. Zapata in 1 week. 2.Follow up with Dr. Goff in 1 week. 3.Follow up with Dr. Aguirre, PCP in 3-5 days Follow up with: KAVON AGUIRRE JR, MD [Primary Care Provider] - 3-5 Days Forms: Discharge Signature Page Prescriptions: amLODIPine [Norvasc] 5 mg PO DAILY #30 tab Aspirin EC [Aspirin Enteric Coated TAB] 81 mg PO QDAY #30 tablet. Azithromycin [Zithromax Z-BAIRON] 0 mg PO DAILY #6 tab Furosemide [Lasix] 20 mg PO QDAY 30 Days Prednisone [predniSONE 10 mg (6-Day Pack, 21 Tabs)] 10 mg PO .TAPER #1 tab.ds.pk <DREW WOLFF - Last Filed: 02/09/17 21:14> Providers - Providers Date of Admission: 02/04/17 08:48 Date of discharge: 02/09/17 Attending physician: STEPHENIE ZAIDI 02/06/17 12:06 Consult to Physician [CONS] Routine Consulting Provider: CEDRIC MADDEN Reason For Exam: COPD exacerbation Place consult to:: [place] Notified:: service Phone number called:: [phone] Was contact made?: Yes Time called:: 09:46 02/07/17 09:59 Consult to Case Management [CONS] Routine Services Needed at Discharge: Home O2 Notified:: case Mngt Comment:: Home oxygen at 2 l/min 02/07/17 15:13 Consult to Physician [CONS] Routine Consulting Provider: DANIELLE ADAMS Reason For Exam: acute on chronic systolic CHF Place consult to:: placed on list Notified:: no Primary care physician: KAVON AGUIRRE Hospitalization Reason for admission: Shotness of breath Hospital course: Patient is a 66-year-old female with past medical history of e CHF, COPD, diabetes mellitus, CAD, hypertension, lupus, and fibromyalgia, who presents to the emergency department with complaining of shortness of breath. Patient was diagnosed with Acute on chronic respiratory failure due to COPD excerbation and CHF exacerbation, COPD and CHF exacerbation, acute renal failure, Diabetes mellitus, Swelling Swelling Bilateral lower extremity, Hypertensive urgency and Hyperlipidemia. Echocardiogram shows EF 20-25% on 02/04/2017. Negative VL doopler.Chest Xray mild CHF. EKG sinus rhythm. She was treated supplemental oxygen, aggressive nebulizer therapy, IV steroids, IV fluid hydration, insulin, antihypertensive medications and IV antibiotic. Patient completed a full course of antibiotic. She is being discharged on oral antibiotic. Also D/C with oral steroid taper and home oxygen at 2LNC. Patient is clinically improved. 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 Discharge Diagnosed Acute on chronic respiratory failure due to COPD excerbation and CHF exacerbation. Acute COPD exacerbation Acute on chronic systolic Congestive heart failure Acute kidney injury Diabetes mellitus Type 2 Swelling Swelling Bilateral lower extremity Hypertensive urgency Hyperlipidemia Time spent for discharge: 35 minutes Core Measure Documentation - Palliative Care Palliative Care/ Comfort Measures: Not Applicable - Core Measures Any of the following diagnoses?: none Exam - Constitutional Vitals: Temp Pulse Resp BP Pulse Ox 97.9 F 80 20 128/68 98 02/09/17 04:52 02/09/17 09:45 02/09/17 09:45 02/09/17 04:52 02/09/17 09:44 General appearance: Present: no acute distress - EENT Eyes: Present: PERRL ENT: hearing intact - Neck Neck: Present: supple - Respiratory Respiratory effort: normal Respiratory: bilateral: wheezing (clinically optimized) - Cardiovascular Rhythm: regular Heart Sounds: Present: S1 & S2 - Abdominal General gastrointestinal: Present: soft, non-tender Female genitourinary: Present: deferred - Rectal Rectal Exam: deferred - Integumentary Integumentary: Present: clear, warm, dry - Musculoskeletal Musculoskeletal: strength equal bilaterally - Psychiatric Psychiatric: appropriate mood/affect - Neurologic Neurologic: moves all extremities - Allied Health Allied health notes reviewed: nursing, case management Plan Weight Bearing Status: Weight Bear as Tolerated Diet: low fat, low cholesterol, low salt
--- NOTE | 2017-02-09 14:14 | Vascular Lab Report ---
LOWER EXTREMITY VENOUS DUPLEX: REASON FOR EXAM: Shortness of breath and swelling of the lower extremities. COMMENTS ON THE RIGHT: All veins visualized are freely compressible without evidence of internal echogenicity. Flow is spontaneous and phasic throughout. COMMENTS ON THE LEFT: All veins visualized are freely compressible without evidence of internal echogenicity. Flow is spontaneous and phasic throughout. IMPRESSION: No evidence of acute or chronic deep venous thrombosis in either lower extremity.
== END 2017-02-09 17:18 | disposition home or self-care (01) | DRG 291 ==
LOC: ED 22:46 → 4A 02-04 08:48
PROVIDERS: ADMIT Internal Medicine; ATTEND Internal Medicine
PROC: 4A033R1 Measurement of Arterial Saturation, Peripheral, Percutaneous Approach (ICD-10-PCS; principal; 2017-02-09)
DX: I13.0 Hypertensive heart and chronic kidney disease with heart failure and stage 1 through stage 4 chronic kidney disease, or unspecified chronic kidney disease (principal); J96.20 Acute and chronic respiratory failure, unspecified whether with hypoxia or hypercapnia; I50.43 Acute on chronic combined systolic (congestive) and diastolic (congestive) heart failure; J44.1 Chronic obstructive pulmonary disease with (acute) exacerbation; N17.9 Acute kidney failure, unspecified; I42.9 Cardiomyopathy, unspecified; I16.0 Hypertensive urgency; N18.3 Chronic kidney disease, stage 3 (moderate); M32.9 Systemic lupus erythematosus, unspecified; E11.22 Type 2 diabetes mellitus with diabetic chronic kidney disease; E78.5 Hyperlipidemia, unspecified; Z90.710 Acquired absence of both cervix and uterus; Z83.3 Family history of diabetes mellitus; Z82.49 Family history of ischemic heart disease and other diseases of the circulatory system; Z88.0 Allergy status to penicillin; Z79.899 Other long term (current) drug therapy
CPT/HCPCS: 36415; 36600; 71010; 71020; 78582; 80048; 80053; 82803; 82962; 83036; 83880; 84132; 84484; 85025; 85379; 85610; 93005; 93010; 93306; 93970; 94640; 94760; 96374; 96375; A9540; A9558; J1650; J1815; J1818; J1940; J1956; J2270; J2405; J2920; J2930

== ENCOUNTER 2018-06-04 06:33 | Inpatient (IN) | payer MEDICARE ==
[2018-06-04 08:07] LABS: Basophils # (Auto) 0.1 K/mm3 (0.0-0.1); Eosinophils # (Auto) 0.2 K/mm3 (0.0-0.4); Eosinophils % (Auto) 3.8 % (0.0-4.3); Hematocrit 32.9 % (30.3-42.9); Hemoglobin 10.4 gm/dl (10.1-14.3); Lymphocytes # (Auto) 0.7 K/mm3 (1.2-5.4); Lymphocytes % (Auto) 12.3 % (13.4-35.0); Mean Corpuscular HGB Conc 32 % (30-34); Mean Corpuscular Volume 82 fl (79-97); Monocytes # (Auto) 0.6 K/mm3 (0.0-0.8); Monocytes % (Auto) 9.6 % (0.0-7.3); Platelet Count 228 K/mm3 (140-440); Red Blood Count 3.99 M/mm3 (3.65-5.03); Red Cell Distribution Width 16.2 % (13.2-15.2)
[2018-06-04 08:15] LABS: Calcium 9.1 mg/dL (8.4-10.2)
[2018-06-04] MEDS ORDERED: LASIX IV ONE (08:18)
--- NOTE | 2018-06-04 08:23 | Emergency Department Report ---
HPI - General Chief Complaint: Dyspnea/Respdistress Time Seen by Provider: 06/04/18 08:05 - HPI HPI: Room 1 The patient is a 67-year-old female presenting with a chief complaint shortness of breath. Patient states the past 3 days she has had orthopnea and dyspnea on exertion. Patient admits to nausea and occasional cough is nonproductive. The patient states she has not had her Lasix for the past 2-3 days because she could not find it. Patient states for the past 3 days she's also had intermittent sharp substernal chest pain but she currently denies pain Location: Lungs Duration: [See above] Quality: [See above] Severity: [See above] Modifying factors: [see above] Context: [see above] Mode of transportation: [not driving] ED Past Medical Hx - Past Medical History Previous Medical History?: Yes Hx Hypertension: Yes Hx Heart Attack/AMI: Yes Hx Congestive Heart Failure: Yes Hx Diabetes: Yes Hx Renal Disease: Yes (AKD) Hx Arthritis: Yes Hx COPD: Yes Additional medical history: lupus fibromyalgia - Surgical History Past Surgical History?: Yes Additional Surgical History: carpal tunnel - Family History Family history: no significant - Social History Smoking Status: Former Smoker (none 5 years) Substance Use Type: None - Medications Home Medications: Home Medications Medication Instructions Recorded Confirmed Last Taken Type Pravastatin [Pravachol] 40 mg PO QHS #30 08/05/17 09/29/17 1 Day Ago Rx ~08/02/17 Aspirin [Aspirin BABY CHEW TAB] 81 mg PO DAILY 09/29/17 09/29/17 Unknown History Citalopram Hydrobromide [Celexa] 40 mg PO QPM 09/29/17 09/29/17 Unknown History Furosemide [Lasix TAB] 40 mg PO DAILY 09/29/17 09/29/17 Unknown History Gabapentin [Neurontin] 600 mg PO DAILY 09/29/17 09/29/17 Unknown History Lisinopril [Zestril] 20 mg PO DAILY 09/29/17 09/29/17 Unknown History Oxycodone HCl/Acetaminophen 10 - 325 mg PO Q8H 09/29/17 09/29/17 Unknown History [Percocet 10/325 mg] Carvedilol [Coreg] 6.25 mg PO BID #60 tablet 10/03/17 Unknown Rx ALPRAZolam [Xanax TAB] 0.5 mg PO QHS #7 tablet 10/06/17 Unknown Rx ED Review of Systems ROS: Stated complaint: SOB/WEAKNESS Other details as noted in HPI Constitutional: no symptoms reported Eyes: denies: eye pain ENT: denies: throat pain Respiratory: cough, orthopnea, shortness of breath, SOB with exertion Cardiovascular: chest pain Endocrine: no symptoms reported Gastrointestinal: nausea Genitourinary: denies: dysuria Musculoskeletal: back pain Neurological: denies: headache Physical Exam - Physical Exam Vital Signs: Vital Signs 06/04/18 06/04/18 07:10 07:12 Temperature 97.9 F Pulse Rate 56 L Respiratory 15 15 Rate Blood Pressure 157/64 [Right] O2 Sat by Pulse 99 99 Oximetry Physical Exam: GENERAL: The patient is well-developed well-nourished female lying on stretcher not appearing to be in acute distress. [] HEENT: Normocephalic. Atraumatic. Extraocular motions are intact. Patient has moist mucous membranes. NECK: Supple. Trachea midline CHEST/LUNGS: Decreased breath sounds at the right base. There is no respiratory distress noted. HEART/CARDIOVASCULAR: Regular. There is no tachycardia. There is no gallop rub or murmur. ABDOMEN: Abdomen is soft, nontender. Patient has normal bowel sounds. There is no abdominal distention. SKIN: There is no rash. There is no edema. There is no diaphoresis. NEURO: The patient is awake, alert, and oriented. The patient is cooperative. The patient has normal speech MUSCULOSKELETAL: There is no evidence of acute injury. ED Course Vital Signs 06/04/18 06/04/18 07:10 07:12 Temperature 97.9 F Pulse Rate 56 L Respiratory 15 15 Rate Blood Pressure 157/64 [Right] O2 Sat by Pulse 99 99 Oximetry ED Medical Decision Making - Lab Data Result diagrams: 06/04/18 07:43 06/04/18 07:43 Laboratory Tests 06/04/18 06/04/18 06/04/18 07:43 07:43 07:43 WBC 5.8 RBC 3.99 Hgb 10.4 Hct 32.9 MCV 82 MCH 26 L MCHC 32 RDW 16.2 H Plt Count 228 Lymph % (Auto) 12.3 L [place] % (Auto) 9.6 H Eos % (Auto) 3.8 Baso % (Auto) 1.0 Lymph # 0.7 L [place] # 0.6 Eos # 0.2 Baso # 0.1 Seg Neutrophils % 73.3 H Seg Neutrophils # 4.3 Sodium 142 Potassium 4.6 Chloride 102.7 Carbon Dioxide 30 Anion Gap 14 BUN 18 H Creatinine 1.2 Estimated GFR 45 BUN/Creatinine Ratio 15 Glucose 104 H Calcium 9.1 Troponin T < 0.010 NT-Pro-B Natriuret Pep 94473 H - EKG Data -: EKG Interpreted by Me EKG shows normal: sinus rhythm Rate: bradycardia (56 bpm) - EKG Data When compared to previous EKG there are: previous EKG unavailable Interpretation: nonspecific ST-T wave jagdeep (T-wave inversion in lead 1 and aVL) - Radiology Data Radiology results: report reviewed (chest x-ray), image reviewed (chest x-ray) interpreted by me: Chest g-eew-lemvg-sided pleural effusion [facility] [address] [place] [address] XRay Report Signed Patient: LAUREN REDD MR#: [id number] : 1950 Acct:[id number] Age/Sex: 67 / F ADM Date: 06/04/18 Loc: ED Attending Dr: Ordering Physician: KENYA ZAVALA MD Date of Service: 06/04/18 Procedure(s): XR chest 1V ap Accession Number(s): [id number] cc: KENYA ZAVALA MD Fluoro Time In Minutes: FINAL REPORT EXAM: XR CHEST 1V AP HISTORY: Shortness of breath TECHNIQUE: Chest, portable PRIORS: 09/30/2017 FINDINGS: There is unchanged mild cardiomegaly. There is right lower lobe airspace disease and moderate right pleural effusion. There is no pneumothorax. IMPRESSION: Right lower lobe infiltrate versus atelectasis and moderate right pleural effusion. Transcribed By: JOSE Dictated By: KEMAL HENNESSY MD Electronically Authenticated By: KEMAL HENNESSY MD Signed Date/Time: 06/04/18 09 DD/ 7 TD/TT: 06/04/18857 - Differential Diagnosis CHF exacerbation, pneumonia, COPD exacerbation, pneumothorax, ACS Critical care attestation.: If time is entered above; I have spent that time in minutes in the direct care of this critically ill patient, excluding procedure time. ED Disposition Clinical Impression: CHF exacerbation, Pleural effusion, right Disposition: [id number] OP ADMIT IP TO THIS HOSP Is pt being admited?: Yes Does the pt Need Aspirin: Yes Condition: Fair Referrals: BENJAMIN MCLEAN MD [Primary Care Provider] - 3-5 Days Time of Disposition: 09:30 (hospitalist paged)
[2018-06-04] MEDS ORDERED: ASPIRIN PO ONE (08:27)
--- NOTE | 2018-06-04 09:00 | XRay Report ---
FINAL REPORT EXAM: XR CHEST 1V AP HISTORY: Shortness of breath TECHNIQUE: Chest, portable PRIORS: 09/30/2017 FINDINGS: There is unchanged mild cardiomegaly. There is right lower lobe airspace disease and moderate right p leural effusion. There is no pneumothorax. IMPRESSION: Right lower lobe infiltrate versus atelectasis and moderate right pleural effusion.
[2018-06-04] MEDS ORDERED: APRESOLINE IV PRN (10:47)
--- NOTE | 2018-06-04 10:59 | History and Physical Report ---
History of Present Illness Date of examination: 06/04/18 Date of admission: 06/04/18 09:32 Chief complaint: Shortness of breath History of present illness: 67-year-old female with past medical history significant for CHF with ejection fraction of 30-35%, COPD, hypertension, lupus presented to the emergency department complaining of shortness of breath for the last 3 days. Patient has shortness of breath at rest. Patient said occasional dry cough, ort hopnea does no significant change in her leg swelling. Left leg is chronically swollen. Patient is complaining of lower back pain, 6 out of 10 intensity, was no radiation, no associated weakness or paresthesia. Patient denied fever, chills or wheezing. She said she had mild chest pain on and off. Patient said she did run out of her lasix for the last 3 days. Patient said she has been follow with Dr. Zapata but didn't see him for the last 3 months because of transportation problems, she discussed her about placement of defibrillator. She says she has echo done in his office 3 months ago. patient had thoracentesis in her previous admission. REVIEW OF SYSTEMS: GENERAL: no weight change, no fatigue, no fever HEAD: no head ache EYES: no blurry vision, no acute visual loss EARS: no hearing loss, no discharge, no earache NOSE: no stuffiness, no sneezing, no discharge MOUTH, THROAT AND NECK: no bleeding gums, no sore throat, no swollen neck CARDIAC: As stated in HPI. RESPIRATORY: As stated in the HPI. GI: no decreased appetite, no nausea, no vomiting, no dysphagia, no diarrhea, no constipation, no abdominal pain URINARY: no change in frequency, no urgency, no polyuria, no hematuria, no incontinence MUSCULOSKELETAL: no muscle weakness, no pain, no joint stiffness NEUROLOGIC: no loss of sensation/numbness, no tingling, no tremors, no weakness/paralysis HEMATOLOGIC: no anemia, no easy bruising SKIN: no rashes ENDOCRINE: no heat/cold intolerance, no polyuria, no polydipsia, no thyroid problems, no diabetes PSYCHIATRIC: no anxiety, no depression, no suicidal ideations Past History Past Medical History: COPD, hypertension, hyperlipidemia Past Surgical History: Other (carpal tunnel release surgery, rectal abscess drainage) Social history: AND/DNR-allow natural . denies: smoking, alcohol abuse, prescription drug abuse, IV drug use Family history: no significant family history Medications and Allergies Allergies Allergy/AdvReac Type Severity Reaction Status Date / Time Penicillins Allergy Rash Verified 10/06/17 17:41 Home Medications Medication Instructions Recorded Confirmed Last Taken Type Pravastatin [Pravachol] 40 mg PO QHS #30 08/05/17 09/29/17 1 Day Ago Rx ~08/02/17 Aspirin [Aspirin BABY CHEW TAB] 81 mg PO DAILY 09/29/17 09/29/17 Unknown History Citalopram Hydrobromide [Celexa] 40 mg PO QPM 09/29/17 09/29/17 Unknown History Furosemide [Lasix TAB] 40 mg PO DAILY 09/29/17 09/29/17 Unknown History Gabapentin [Neurontin] 600 mg PO DAILY 09/29/17 09/29/17 Unknown History Lisinopril [Zestril] 20 mg PO DAILY 09/29/17 09/29/17 Unknown History Oxycodone HCl/Acetaminophen 10 - 325 mg PO Q8H 09/29/17 09/29/17 Unknown History [Percocet 10/325 mg] Carvedilol [Coreg] 6.25 mg PO BID #60 tablet 10/03/17 Unknown Rx ALPRAZolam [Xanax TAB] 0.5 mg PO QHS #7 tablet 10/06/17 Unknown Rx Active Meds: Active Medications Alprazolam (Xanax) 0.5 mg PO QHS [facility] Aspirin (Baby Aspirin) 81 mg PO DAILY [facility] Carvedilol (Coreg) 6.25 mg PO BID [facility] Furosemide (Lasix) 40 mg IV 0600,1800 [facility] Heparin Sodium (Porcine) (Heparin) 5,000 unit SUB-Q Q8HR [facility] Hydralazine HCl (Apresoline) 10 mg IV Q4HR PRN PRN Reason: Hypertension Lisinopril (Zestril) 20 mg PO DAILY [facility] Miscellaneous Medication (Citalopram Hydrobromide [Celexa]) 40 mg PO QPM [facility] Miscellaneous Medication (Gabapentin [Neurontin]) 600 mg PO DAILY [facility] Nystatin (Nystop) 1 applic TP BID [facility] Oxycodone/Acetaminophen (Percocet 5/325) 2 tab PO Q6H PRN PRN Reason: Pain, Moderate (4-6) Pravastatin Sodium (Pravachol) 40 mg PO QHS VU Exam - Physical Exam Narrative exam: Not in cardiopulmonary distress. The patient appeared well nourished and normally developed. Vital signs as documented. Head exam is unremarkable. No scleral icterus . Neck is without jugular venous distension, thyromegaly, or carotid bruits. Lungs decreased air entry on the right lower lung zone. Cardiac exam reveals regular rate and Rhythm. Abdominal exam reveals normal bowel sounds, no masses, no organomegaly and no aortic enlargement. Extremities chronic left leg swelling, no edema of the right leg. [employer] ATTENDANT: Alert and oriented 3. 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 - Constitutional Vitals: Temp Pulse Resp BP Pulse Ox 97.9 F 91 H 23 177/75 97 06/04/18 07:10 06/04/18 10:00 06/04/18 10:00 06/04/18 10:00 06/04/18 10:00 Results - Labs CBC & Chem 7: 06/04/18 07:43 06/04/18 07:43 Labs: Laboratory Last Values WBC 5.8 K/mm3 (4.5-11.0) 06/04/18 07:43 RBC 3.99 M/mm3 (3.65-5.03) 06/04/18 07:43 Hgb 10.4 gm/dl (10.1-14.3) 06/04/18 07:43 Hct 32.9 % (30.3-42.9) 06/04/18 07:43 MCV 82 fl (79-97) 06/04/18 07:43 MCH 26 pg (28-32) L 06/04/18 07:43 MCHC 32 % (30-34) 06/04/18 07:43 RDW 16.2 % (13.2-15.2) H 06/04/18 07:43 Plt Count 228 K/mm3 (140-440) 06/04/18 07:43 Lymph % (Auto) 12.3 % (13.4-35.0) L 06/04/18 07:43 [place] % (Auto) 9.6 % (0.0-7.3) H 06/04/18 07:43 Eos % (Auto) 3.8 % (0.0-4.3) 06/04/18 07:43 Baso % (Auto) 1.0 % (0.0-1.8) 06/04/18 07:43 Lymph # 0.7 K/mm3 (1.2-5.4) L 06/04/18 07:43 [place] # 0.6 K/mm3 (0.0-0.8) 06/04/18 07:43 Eos # 0.2 K/mm3 (0.0-0.4) 06/04/18 07:43 Baso # 0.1 K/mm3 (0.0-0.1) 06/04/18 07:43 Seg Neutrophils % 73.3 % (40.0-70.0) H 06/04/18 07:43 Seg Neutrophils # 4.3 K/mm3 (1.8-7.7) 06/04/18 07:43 Sodium 142 mmol/L (137-145) 06/04/18 07:43 Potassium 4.6 mmol/L (3.6-5.0) 06/04/18 07:43 Chloride 102.7 mmol/L (98-107) 06/04/18 07:43 Carbon Dioxide 30 mmol/L (22-30) 06/04/18 07:43 Anion Gap 14 mmol/L 06/04/18 07:43 BUN 18 mg/dL (7-17) H 06/04/18 07:43 Creatinine 1.2 mg/dL (0.7-1.2) 06/04/18 07:43 Estimated GFR 45 ml/min 06/04/18 07:43 BUN/Creatinine Ratio 15 % 06/04/18 07:43 Glucose 104 mg/dL (65-100) H 06/04/18 07:43 Calcium 9.1 mg/dL (8.4-10.2) 06/04/18 07:43 Troponin T < 0.010 ng/mL (0.00-0.029) 06/04/18 07:43 NT-Pro-B Natriuret Pep 51083 pg/mL (0-900) H 06/04/18 07:43 Assessment and Plan Assessment and plan: Acute respiratory failure Acute on chronic combined CHF - IV Lasix, continue lisinopril and carvedilol, oxygen support - Strict input and output, low salt diet - Cardiology consult Right Pleural effusion - Consult pulmonary for possible thoracentesis COPD - Not in exacerbation - Breathing treatment Uncontrolled hypertension - Continue the above-mentioned medications and hydralazine when necessary - Follow BP medications closely and adjust as needed SLE - in remission Intertriginous candidiasis - on nystatin powder DVT prophylaxis - On heparin Disposition - Admit to telemetry Advance Directives: Yes VTE prophylaxis?: Chemical Plan of care discussed with patient/family: Yes
[2018-06-04] MEDS: ZOFRAN IV PRN ×2 (12:15→21:42)
--- NOTE | 2018-06-04 14:28 | Consultation ---
History of Present Illness Consult date: 06/04/18 Reason for consult: dyspnea, pleural effusion, other (congestive heart failure) History of present illness: Called to evaluate case of a 67-year-old female with prior history of congestive heart failure pleural effusion. Presented to the ED with shortness of breath. Chart was reviewed in detail, 67-year-old female with past medical history significant for CHF with ejection fraction of 30-35%, COPD, hypertension, lupus presented to the emergency department complaining of shortness of breath for the last 3 days. Patient has shortness of breath at rest. Patient said occasional dry cough, orthopnea does no significant change in her leg swelling. Left leg is chronically swollen. Patient is complaining of lower back pain, 6 out of 10 intensity, was no radiation, no associated weakness or paresthesia. Patient denied fever, chills or wheezing. She was started on oxygen recently, because for her breathing problems. Patient said she did run out of her lasix for the last 3 days. Patient said she has been follow with Dr. Zapata but didn't see him for the last 3 months because of transportation problems, she discussed her a bout placement of defibrillator. patient had thoracentesis in her previous admission. She had a right thoracenteses in September last year. Chart review shows the following; 09/30/17 15:30 Fluid WBC 84 Fluid Seg Neutrophils 29.0 Fluid Lymphocytes 51.0 Fluid Total Protein < 3.0 L Fluid LDH 112 Past History Past Medical History: COPD, hypertension, hyperlipidemia Past Surgical History: Other (carpal tunnel release surgery, rectal abscess drainage) Social history: AND/DNR-allow natural . denies: smoking, alcohol abuse, prescription drug abuse, IV drug use Family history: no significant family history Medications and Allergies Allergies Allergy/AdvReac Type Severity Reaction Status Date / Time Penicillins Allergy Rash Verified 10/06/17 17:41 Home Medications Medication Instructions Recorded Confirmed Last Taken Type Pravastatin [Pravachol] 40 mg PO QHS #30 08/05/17 06/04/18 06/03/18 21:00 Rx Aspirin [Aspirin BABY CHEW TAB] 81 mg PO DAILY 09/29/17 06/04/18 06/03/18 21:00 History Citalopram Hydrobromide [Celexa] 40 mg PO QPM 09/29/17 06/04/18 06/03/18 21:00 History Furosemide [Lasix TAB] 40 mg PO DAILY 09/29/17 06/04/18 06/03/18 21:00 History Gabapentin [Neurontin] 600 mg PO TID 09/29/17 06/04/18 06/03/18 21:00 History Lisinopril [Zestril] 20 mg PO DAILY 09/29/17 06/04/18 06/03/18 21:00 History Oxycodone HCl/Acetaminophen 10 - 325 mg PO Q8H 09/29/17 06/04/18 06/03/18 21:00 History [Percocet 10/325 mg] Carvedilol [Coreg] 6.25 mg PO BID #60 tablet 10/03/17 06/04/18 06/03/18 21:00 Rx ALPRAZolam [Xanax TAB] 0.5 mg PO QHS #7 tablet 10/06/17 06/04/18 06/03/18 21:00 Rx Active Meds: Active Medications Alprazolam (Xanax) 0.5 mg PO QHS [facility] Aspirin (Baby Aspirin) 81 mg PO DAILY [facility] Carvedilol (Coreg) 6.25 mg PO BID [facility] Citalopram Hydrobromide (Celexa) 40 mg PO QPM VU Furosemide (Lasix) 40 mg IV 0600,1800 VU Gabapentin (Neurontin) 600 mg PO DAILY [facility] Heparin Sodium (Porcine) (Heparin) 5,000 unit SUB-Q Q8HR [facility] Hydralazine HCl (Apresoline) 10 mg IV Q4HR PRN PRN Reason: Hypertension Lisinopril (Zestril) 20 mg PO DAILY [facility] Nystatin (Nystop) 1 applic TP BID [facility] Ondansetron HCl (Zofran) 4 mg IV Q8H PRN PRN Reason: Nausea And Vomiting Last Admin: 06/04/18 12:15 Dose: 4 mg Documented by: Oxycodone/Acetaminophen (Percocet 5/325) 2 tab PO Q6H PRN PRN Reason: Pain, Moderate (4-6) Pravastatin Sodium (Pravachol) 40 mg PO QHS [facility] Physical Examination Vital signs: Vital Signs Pulse Ox 99 06/04/18 07:06 General appearance: no acute distress, alert Eyes: non-icteric ENT: oropharynx moist Neck: supple, no lymphadenopathy, JVD Ascultation: Right: diminished breath sounds, Bilateral: clear Percussion: Right: dull Cardiovascular: regular rate and rhythm Gastrointestinal: normoactive bowel sounds, non-distended Integumentary: normal Extremities: no cyanosis Musculoskeletal: no deformities Gait: other (chronic edema related tissue changes on the right lower extremity) normal mental status mood appropriate, affect normal Results - Laboratory Findings CBC and BMP: 06/04/18 07:43 06/04/18 07:43 Abnormal lab findings: Abnormal Labs 06/04/18 06/04/18 06/04/18 07:43 07:43 07:43 MCH 26 L RDW 16.2 H Lymph % (Auto) 12.3 L [place] % (Auto) 9.6 H Lymph # 0.7 L Seg Neutrophils % 73.3 H BUN 18 H Glucose 104 H NT-Pro-B Natriuret Pep 36565 H - Diagnostic Findings Chest x-ray: report reviewed, image reviewed Assessment and Plan Impression Dyspnea. Secondary to congestive heart failure with decompensation CHF exacerbation Right pleural effusion. Per chart review, patient with prior thoracentesis showing pleural transudate. Consistent with heart failure history COPD. Former smoker, told to have this diagnosis but not on treatment other than oxygen recently. Never seen a interpreter deaf Recommendations Albuterol 2.5 milligram nebulizations every 4-6 hours with or without ipratropium Oxygen support via nasal cannula or mask to maintain oximetry over 92% Gentle diuresis If no significant improvement in the next 2-3 consider repeat thoracentesis DVT prophylaxis Discussed with the patient detailed. All questions answered. Thanks
--- NOTE | 2018-06-04 15:35 | Event Note ---
Date: 06/04/18 cardiology consult dictated. .
[2018-06-04] MEDS: LASIX IV SCH (17:39)
[2018-06-04] MEDS: ZESTRIL PO SCH (17:39)
[2018-06-04] MEDS: HEPARIN SUB-Q SCH ×2 (17:39→21:42)
[2018-06-04] MEDS: NYSTOP TP SCH ×2 (17:40→21:43)
[2018-06-04] MEDS: celeXA PO SCH (17:47)
[2018-06-04] MEDS ORDERED: NON-FORMULARY (Citalopram Hydrobromide [Celexa] 40 MG) PO SCH (18:00)
[2018-06-04] MEDS: COREG PO SCH (21:42)
[2018-06-04] MEDS: XANAX PO SCH (21:42)
[2018-06-04] MEDS: PRAVACHOL PO SCH (21:42)
--- NOTE | 2018-06-04 22:28 | Consultation ---
CHIEF COMPLAINT: Shortness of breath for 3 days. HISTORY OF PRESENT ILLNESS: This 67-year-old patient followed by Dr. Zapata in the office for more than 15 years with known history of nonischemic cardiomyopathy, hypertension, diabetes mellitus, chronic kidney disease, COPD. In the past, she has used oxygen, former tobacco user. She came with shortness of breath of 3 days' duration. In the past, she had echocardiogram done in 06/2017. At that time, EF was noted to be 35% with grade 2 diastolic dysfunction. RV function was moderately reduced, left atrium severely enlarged. Right atrium mildly enlarged with mild MR and grka-pv-dhycmdas TR and pulmonary hypertension with right ventricular systolic pressure of 62 mmHg. The patient has had thoracentesis in October of last year by clinical data specialist for pleural effusion secondary to heart failure. She had cardiac catheterization done in 07/2014, which revealed no significant epicardial coronary artery disease. At that time, her ejection fraction on the LV gram was 40-45%. PAST MEDICAL HISTORY: Positive for COPD, hypertension, hyperlipidemia and chronic kidney disease. SOCIAL HISTORY: The patient quit smoking, no history of alcohol intake, no drug abuse. MEDICATIONS: At home include the followin. Pravastatin 40 mg. 2. Aspirin 81 mg. 3. Furosemide 40 mg daily. 4. Gabapentin 600 mg t.i.d. 5. Lisinopril 20 mg a day. 6. Oxycodone with acetaminophen 10/325 q.8 hours p.r.n. for back pain. 7. Carvedilol 6.25 mg b.i.d. 8. Xanax 0.5 mg at bedtime. PHYSICAL EXAMINATION: VITAL SIGNS: Temperature normal. Blood pressure 157/64, pulse 60 per minute. GENERAL: The patient in no acute distress. NECK: No JVP elevation at 45 degrees. NECK: Supple. Trachea midline. LUNGS: Revealed diminished breath sounds right half of the chest with dull note. Rales noted at the left base. HEART: PMI nonpalpable. Heart sounds audible. S3 gallop is noted. No murmurs. ABDOMEN: Soft, nontender. Liver and spleen not palpable. EXTREMITIES: Left lower extremity is larger than the right. This is due to previous accident. LABORATORY DATA: White cell count is 5800. Hemoglobin 10.4 grams percent. Platelet count 228,000. Hematocrit 32.9. Potassium is 4.6. BUN is 18, creatinine 1.2. Chest x-ray revealed right-sided pleural effusion. IMPRESSION: 1. Congestive heart failure exacerbation, systolic. 2. Nonischemic cardiomyopathy. 3. Chronic obstructive pulmonary disease. RECOMMENDATIONS: Agree with diuretics. Continue beta blockers as tolerated. THAIS inhibitors. JOB# [id number] KR/NTS
[2018-06-05] MEDS: LASIX IV SCH ×2 (06:41→17:19)
[2018-06-05] MEDS: HEPARIN SUB-Q SCH ×3 (06:41→22:36)
[2018-06-05 07:19] LABS: Calcium 8.5 mg/dL (8.4-10.2)
[2018-06-05] MEDS: NEURONTIN PO SCH (09:33)
[2018-06-05] MEDS: BABY ASPIRIN PO SCH (09:33)
[2018-06-05] MEDS: ZESTRIL PO SCH (09:33)
[2018-06-05] MEDS: COREG PO SCH ×2 (09:34→22:36)
[2018-06-05] MEDS: NYSTOP TP SCH ×2 (09:35→22:37)
[2018-06-05] MEDS ORDERED: NON-FORMULARY (Gabapentin [Neurontin] 600 MG) PO SCH (10:00)
--- NOTE | 2018-06-05 11:28 | Progress Note ---
Assessment and Plan CHF with pleural effusion. HFrEF acute on chronic. NICMP. Plan; Continue current Rx. Subjective Date of service: 06/05/18 Interval history: Diuressing well.Less SOB. No chest pain. Objective Vital Signs Temp Pulse Resp BP Pulse Ox 06/05/18 09:34 65 148/72 06/05/18 09:33 65 148/72 06/05/18 08:06 98.2 F 61 20 137/67 95 06/05/18 04:44 97.7 F 54 L 16 133/62 93 06/05/18 02:00 63 06/05/18 00:00 67 97 06/04/18 23:38 32.1 F L 18 124/97 06/04/18 23:35 98.1 F 63 16 130/63 92 06/04/18 22:00 97 06/04/18 21:42 64 168/75 06/04/18 19:45 98.1 F 68 16 175/83 98 06/04/18 17:23 97.9 F 65 18 180/78 96 06/04/18 14:53 98.2 F 64 16 162/78 96 - Physical Examination General: No Apparent Distress HEENT: Positive: Mucus Membranes Moist Neck: Positive: neck supple, trachea midline. Negative: JVD/HJR Cardiac: Positive: Regular Rate, S1/S2 Lungs: Positive: Absent Breath Sounds (Right lower chest posteriorly.) - Labs and Meds Comprehensive Metabolic Panel 06/05/18 Range/Units 06:19 Sodium 143 (137-145) mmol/L Potassium 3.6 D (3.6-5.0) mmol/L Chloride 101.3 (98-107) mmol/L Carbon Dioxide 33 H (22-30) mmol/L BUN 21 H (7-17) mg/dL Creatinine 1.4 H (0.7-1.2) mg/dL Glucose 102 H (65-100) mg/dL Calcium 8.5 (8.4-10.2) mg/dL
--- NOTE | 2018-06-05 12:03 | Progress Note ---
Assessment and Plan Assessment and plan: Acute respiratory failure Acute on chronic combined CHF - IV Lasix, continue lisinopril and carvedilol, oxygen support - Strict input and output, low salt diet - Cardiology consult noted Right Pleural effusion - pulmonary consult noted. COPD - Not in exacerbation - Breathing treatment Uncontrolled hypertension - Continue the above-mentioned medications and hydralazine when necessary - Follow BP medications closely and adjust as needed SLE - in remission Intertriginous candidiasis - on nystatin powder mild bump in cr; likely due to diuresis DVT prophylaxis - On heparin Disposition - continue inpatient care History Interval history: Patient was seen and evaluated this morning, patient's SOB is getting better. Hospitalist Physical - Physical exam Narrative exam: Not in cardiopulmonary distress. The patient appeared well nourished and normally developed. Vital signs as documented. Head exam is unremarkable. No scleral icterus . Neck is without jugular venous distension, thyromegaly, or carotid bruits. Lungs decreased air entry on the right lower lung zone. Cardiac exam reveals regular rate and Rhythm. Abdominal exam reveals normal bowel sounds, no masses, no organomegaly and no aortic enlargement. Extremities chronic left leg swelling, no edema of the right leg. patient has right gluteal area hematoma. 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 - Constitutional Vitals: Temp Pulse Resp BP Pulse Ox 98.2 F 61 16 148/72 95 06/05/18 08:06 06/05/18 10:00 06/05/18 10:00 06/05/18 09:34 06/05/18 10:00 Results - Labs CBC & Chem 7: 06/04/18 07:43 06/05/18 06:19 Labs: Laboratory Last Values WBC 5.8 K/mm3 (4.5-11.0) 06/04/18 07:43 RBC 3.99 M/mm3 (3.65-5.03) 06/04/18 07:43 Hgb 10.4 gm/dl (10.1-14.3) 06/04/18 07:43 Hct 32.9 % (30.3-42.9) 06/04/18 07:43 MCV 82 fl (79-97) 06/04/18 07:43 MCH 26 pg (28-32) L 06/04/18 07:43 MCHC 32 % (30-34) 06/04/18 07:43 RDW 16.2 % (13.2-15.2) H 06/04/18 07:43 Plt Count 228 K/mm3 (140-440) 06/04/18 07:43 Lymph % (Auto) 12.3 % (13.4-35.0) L 06/04/18 07:43 [place] % (Auto) 9.6 % (0.0-7.3) H 06/04/18 07:43 Eos % (Auto) 3.8 % (0.0-4.3) 06/04/18 07:43 Baso % (Auto) 1.0 % (0.0-1.8) 06/04/18 07:43 Lymph # 0.7 K/mm3 (1.2-5.4) L 06/04/18 07:43 [place] # 0.6 K/mm3 (0.0-0.8) 06/04/18 07:43 Eos # 0.2 K/mm3 (0.0-0.4) 06/04/18 07:43 Baso # 0.1 K/mm3 (0.0-0.1) 06/04/18 07:43 Seg Neutrophils % 73.3 % (40.0-70.0) H 06/04/18 07:43 Seg Neutrophils # 4.3 K/mm3 (1.8-7.7) 06/04/18 07:43 Sodium 143 mmol/L (137-145) 06/05/18 06:19 Potassium 3.6 mmol/L (3.6-5.0) D 06/05/18 06:19 Chloride 101.3 mmol/L (98-107) 06/05/18 06:19 Carbon Dioxide 33 mmol/L (22-30) H 06/05/18 06:19 Anion Gap 12 mmol/L 06/05/18 06:19 BUN 21 mg/dL (7-17) H 06/05/18 06:19 Creatinine 1.4 mg/dL (0.7-1.2) H 06/05/18 06:19 Estimated GFR 37 ml/min 06/05/18 06:19 BUN/Creatinine Ratio 15 % 06/05/18 06:19 Glucose 102 mg/dL (65-100) H 06/05/18 06:19 Calcium 8.5 mg/dL (8.4-10.2) 06/05/18 06:19 Troponin T < 0.010 ng/mL (0.00-0.029) 06/04/18 07:43 NT-Pro-B Natriuret Pep 70746 pg/mL (0-900) H 06/04/18 07:43
[2018-06-05] MEDS: celeXA PO SCH (17:19)
[2018-06-05] MEDS: PRAVACHOL PO SCH (22:36)
[2018-06-05] MEDS: XANAX PO SCH (22:36)
[2018-06-06] MEDS: PERCOCET 5/325 PO PRN ×2 (02:06→22:18)
[2018-06-06] MEDS: LASIX IV SCH ×2 (06:21→17:30)
[2018-06-06] MEDS: HEPARIN SUB-Q SCH ×3 (06:21→22:19)
[2018-06-06 07:33] LABS: Calcium 8.3 mg/dL (8.4-10.2)
[2018-06-06] MEDS: BABY ASPIRIN PO SCH (09:28)
[2018-06-06] MEDS: NEURONTIN PO SCH (09:28)
[2018-06-06] MEDS: COREG PO SCH ×2 (09:30→22:22)
--- NOTE | 2018-06-06 09:30 | XRay Report ---
AP CHEST: HISTORY: Followup of pleural effusion Mild cardiomegaly, mild pulmonary venous congestion and medium right pleural effusion are essentially unchanged since 06/04/18. Mild atelectatic changes at the right lung base remain. No pneumothorax. IMPRESSION: No significant change.
[2018-06-06] MEDS: NYSTOP TP SCH ×2 (09:31→22:19)
[2018-06-06] MEDS: ZESTRIL PO SCH (09:31)
--- NOTE | 2018-06-06 13:15 | Progress Note ---
Assessment and Plan CHF with pleural effusion. pulmonary has been following. HFrEF acute on chronic. NICMP. Subjective Date of service: 06/06/18 Interval history: SoB is less,No chest pain, no palpitations. Edema is not better. Objective Vital Signs Temp Pulse Pulse Resp BP BP Pulse Ox 06/06/18 11:53 97.5 F L 55 L 19 139/95 93 06/06/18 10:00 54 L 06/06/18 09:31 59 L 119/46 06/06/18 09:30 59 L 119/46 06/06/18 09:11 62 19 95 06/06/18 09:05 97.7 F 06/06/18 09:04 64 20 134/65 96 06/06/18 04:23 97.5 F L 53 L 12 102/47 93 06/06/18 02:00 64 06/05/18 23:30 97.5 F L 61 16 165/68 93 06/05/18 22:36 140/61 06/05/18 22:35 59 L 18 93 06/05/18 19:32 97.7 F 59 L 16 140/61 97 06/05/18 16:59 97.9 F 57 L 18 133/65 96 06/05/18 14:34 97.2 F L 61 19 110/59 97 - Physical Examination General: No Apparent Distress HEENT: Positive: Mucus Membranes Moist Neck: Positive: neck supple, trachea midline. Negative: JVD/HJR Cardiac: Positive: Regular Rate, Regular Rhythm Lungs: Positive: Decreased Breath Sounds (R chest) Extremities: Present: +2 Edema - Labs and Meds Comprehensive Metabolic Panel 06/06/18 Range/Units 06:57 Sodium 143 (137-145) mmol/L Potassium 3.7 (3.6-5.0) mmol/L Chloride 98.2 (98-107) mmol/L Carbon Dioxide 34 H (22-30) mmol/L BUN 26 H (7-17) mg/dL Creatinine 1.6 H (0.7-1.2) mg/dL Glucose 83 (65-100) mg/dL Calcium 8.3 L (8.4-10.2) mg/dL - Telemetry EKG Rhythm: 1st Degree HB
--- NOTE | 2018-06-06 14:55 | Progress Note ---
Assessment and Plan Assessment and plan: Acute respiratory failure Acute on chronic combined CHF - IV Lasix, continue lisinopril and carvedilol, oxygen support - Strict input and output, low salt diet - Cardiology consult noted Right Pleural effusion - pulmonary consult noted - Repeat chest x-ray; no change COPD - Not in exacerbation - Breathing treatment Uncontrolled hypertension - Continue the above-mentioned medications and hydralazine when necessary - Follow BP medications closely and adjust as needed SLE - in remission Intertriginous candidiasis - on nystatin powder AURA - likely due to overdiuresis - Decrease furosemide dose DVT prophylaxis - On heparin Disposition - continue inpatient care History Interval history: Patient was seen and evaluated this morning, patient's SOB is getting better. Hospitalist Physical - Physical exam Narrative exam: Not in cardiopulmonary distress. The patient appeared well nourished and normally developed. Vital signs as documented. Head exam is unremarkable. No scleral icterus . Neck is without jugular venous distension, thyromegaly, or carotid bruits. Lungs decreased air entry on the right lower lung zone. Cardiac exam reveals regular rate and Rhythm. Abdominal exam reveals normal bowel sounds, no masses, no organomegaly and no aortic enlargement. Extremities chronic left leg swelling, no edema of the right leg. patient has right gluteal area hematoma. 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 - Constitutional Vitals: Temp Pulse Resp BP Pulse Ox 97.5 F L 55 L 19 139/95 93 06/06/18 11:53 06/06/18 11:53 06/06/18 11:53 06/06/18 11:53 06/06/18 11:53 Results - Labs CBC & Chem 7: 06/04/18 07:43 06/06/18 06:57 Labs: Laboratory Last Values WBC 5.8 K/mm3 (4.5-11.0) 06/04/18 07:43 RBC 3.99 M/mm3 (3.65-5.03) 06/04/18 07:43 Hgb 10.4 gm/dl (10.1-14.3) 06/04/18 07:43 Hct 32.9 % (30.3-42.9) 06/04/18 07:43 MCV 82 fl (79-97) 06/04/18 07:43 MCH 26 pg (28-32) L 06/04/18 07:43 MCHC 32 % (30-34) 06/04/18 07:43 RDW 16.2 % (13.2-15.2) H 06/04/18 07:43 Plt Count 228 K/mm3 (140-440) 06/04/18 07:43 Lymph % (Auto) 12.3 % (13.4-35.0) L 06/04/18 07:43 [place] % (Auto) 9.6 % (0.0-7.3) H 06/04/18 07:43 Eos % (Auto) 3.8 % (0.0-4.3) 06/04/18 07:43 Baso % (Auto) 1.0 % (0.0-1.8) 06/04/18 07:43 Lymph # 0.7 K/mm3 (1.2-5.4) L 06/04/18 07:43 [place] # 0.6 K/mm3 (0.0-0.8) 06/04/18 07:43 Eos # 0.2 K/mm3 (0.0-0.4) 06/04/18 07:43 Baso # 0.1 K/mm3 (0.0-0.1) 06/04/18 07:43 Seg Neutrophils % 73.3 % (40.0-70.0) H 06/04/18 07:43 Seg Neutrophils # 4.3 K/mm3 (1.8-7.7) 06/04/18 07:43 Sodium 143 mmol/L (137-145) 06/06/18 06:57 Potassium 3.7 mmol/L (3.6-5.0) 06/06/18 06:57 Chloride 98.2 mmol/L (98-107) 06/06/18 06:57 Carbon Dioxide 34 mmol/L (22-30) H 06/06/18 06:57 Anion Gap 15 mmol/L 06/06/18 06:57 BUN 26 mg/dL (7-17) H 06/06/18 06:57 Creatinine 1.6 mg/dL (0.7-1.2) H 06/06/18 06:57 Estimated GFR 32 ml/min 06/06/18 06:57 BUN/Creatinine Ratio 16 % 06/06/18 06:57 Glucose 83 mg/dL (65-100) 06/06/18 06:57 Calcium 8.3 mg/dL (8.4-10.2) L 06/06/18 06:57 Troponin T < 0.010 ng/mL (0.00-0.029) 06/04/18 07:43 NT-Pro-B Natriuret Pep 38899 pg/mL (0-900) H 06/04/18 07:43 Nutrition/Malnutrition Assess - Dietary Evaluation Nutrition/Malnutrition Findings: Nutrition Notes Start: 06/05/18 13:14 Freq: Status: Active Protocol: Document 06/05/18 13:14 RM (Rec: 06/05/18 13:15 RM [id number]) Nutrition Notes Need for Assessment generated from: therapist speech Initial or Follow up Brief Note Subjective/Other Information Screened for skin risk. Bassem 20 points. Error. Nutrition Intervention Revisit per MD consult or patient Sign Off request:
[2018-06-06] MEDS: celeXA PO SCH (17:29)
--- NOTE | 2018-06-06 19:17 | Progress Note ---
Assessment and Plan Imp: 1. NICMP 2. A/C systolic CHF 3. Pleural effusion 2/2 above 4. CKD 5. Obesity 6. COPD w/o exac. Rec: 1. Lasix IV 2. Thoracentesis in AM; re-send studies 3. Outpatient PFTs 4. Consider PSG Plan of care reviewed w/ patient, she understands/agrees Subjective Date of service: 06/06/18 Principal diagnosis: Pleural effusion Interval history: SOB improving. No chest pain or wheezing. No new complaints. Active Medications Alprazolam (Xanax) 0.5 mg PO QHS [facility] Last Admin: 06/05/18 22:36 Dose: 0.5 mg Documented by: Aspirin (Baby Aspirin) 81 mg PO DAILY [facility] Last Admin: 06/06/18 09:28 Dose: 81 mg Documented by: Carvedilol (Coreg) 6.25 mg PO BID [facility] Last Admin: 06/06/18 09:30 Dose: Not Given Documented by: Citalopram Hydrobromide (Celexa) 40 mg PO QPM [facility] Last Admin: 06/06/18 17:29 Dose: 40 mg Documented by: Furosemide (Lasix) 20 mg IV 0600,1800 [facility] Last Admin: 06/06/18 17:30 Dose: 20 mg Documented by: Gabapentin (Neurontin) 600 mg PO DAILY [facility] Last Admin: 06/06/18 09:28 Dose: 600 mg Documented by: Heparin Sodium (Porcine) (Heparin) 5,000 unit SUB-Q Q8HR [facility] Last Admin: 06/06/18 13:34 Dose: 5,000 unit Documented by: Hydralazine HCl (Apresoline) 10 mg IV Q4HR PRN PRN Reason: Hypertension Lisinopril (Zestril) 20 mg PO DAILY [facility] Last Admin: 06/06/18 09:31 Dose: 20 mg Documented by: Nystatin (Nystop) 1 applic TP BID [facility] Last Admin: 06/06/18 09:31 Dose: 1 applic Documented by: Ondansetron HCl (Zofran) 4 mg IV Q8H PRN PRN Reason: Nausea And Vomiting Last Admin: 06/04/18 21:42 Dose: 4 mg Documented by: Oxycodone/Acetaminophen (Percocet 5/325) 2 tab PO Q6H PRN PRN Reason: Pain, Moderate (4-6) Last Admin: 06/06/18 02:06 Dose: 2 tab Documented by: Pravastatin Sodium (Pravachol) 40 mg PO QHS [facility] Last Admin: 06/05/18 22:36 Dose: 40 mg Documented by: Objective Vital Signs - 12hr 06/06/18 06/06/18 06/06/18 09:04 09:05 09:11 Temperature 97.7 F Pulse Rate 64 Pulse Rate [ 62 Apical] Respiratory 20 19 Rate Blood Pressure 134/65 Blood Pressure [Right] O2 Sat by Pulse 96 95 Oximetry 06/06/18 06/06/18 06/06/18 09:30 09:31 10:00 Temperature Pulse Rate 59 L 59 L 54 L Pulse Rate [ Apical] Respiratory Rate Blood Pressure 119/46 119/46 Blood Pressure [Right] O2 Sat by Pulse Oximetry 06/06/18 06/06/18 11:53 16:49 Temperature 97.5 F L 97.7 F Pulse Rate 55 L 55 L Pulse Rate [ Apical] Respiratory 19 18 Rate Blood Pressure Blood Pressure 139/95 134/54 [Right] O2 Sat by Pulse 93 97 Oximetry Constitutional: no acute distress, alert Eyes: non-icteric ENT: oropharynx moist Neck: supple Ascultation: Right: diminished breath sounds (base) Percussion: Right: dull Cardiovascular: regular rate and rhythm Gastrointestinal: normoactive bowel sounds, non-distended Integumentary: other (venous stasis changes LLE) Extremities: no cyanosis, edema (2+ bilateral LE edema, L > R) Neurologic: normal mental status, non-focal exam, pupils equal and round, CN II- XII normal Psychiatric: mood appropriate, affect normal CBC and BMP: 06/04/18 07:43 06/06/18 06:57 Abnormal lab findings: Abnormal Labs 06/04/18 06/04/18 06/04/18 07:43 07:43 07:43 MCH 26 L RDW 16.2 H Lymph % (Auto) 12.3 L [place] % (Auto) 9.6 H Lymph # 0.7 L Seg Neutrophils % 73.3 H Carbon Dioxide BUN 18 H Creatinine Glucose 104 H Calcium NT-Pro-B Natriuret Pep 71782 H 06/05/18 06/06/18 06:19 06:57 MCH RDW Lymph % (Auto) [place] % (Auto) Lymph # Seg Neutrophils % Carbon Dioxide 33 H 34 H BUN 21 H 26 H Creatinine 1.4 H 1.6 H Glucose 102 H Calcium 8.3 L NT-Pro-B Natriuret Pep Chest x-ray: report reviewed, image reviewed
[2018-06-06] MEDS: PRAVACHOL PO SCH (22:19)
[2018-06-06] MEDS: XANAX PO SCH (22:19)
[2018-06-07] MEDS: HEPARIN SUB-Q SCH ×3 (05:44→22:04)
[2018-06-07] MEDS: LASIX IV SCH ×2 (05:44→17:56)
[2018-06-07 07:45] LABS: Basophils # (Auto) 0.1 K/mm3 (0.0-0.1); Basophils % (Auto) 1.2 % (0.0-1.8); Eosinophils # (Auto) 0.2 K/mm3 (0.0-0.4); Eosinophils % (Auto) 5.6 % (0.0-4.3); Hematocrit 28.3 % (30.3-42.9); Lymphocytes % (Auto) 23.1 % (13.4-35.0); Mean Corpuscular HGB Conc 32 % (30-34); Mean Corpuscular Volume 82 fl (79-97); Monocytes # (Auto) 0.6 K/mm3 (0.0-0.8); Platelet Count 191 K/mm3 (140-440); Red Blood Count 3.44 M/mm3 (3.65-5.03); Red Cell Distribution Width 16.5 % (13.2-15.2)
--- NOTE | 2018-06-07 08:16 | Vascular Lab Report ---
FINAL REPORT EXAM: VL VENOUS DUPLEX LE BILAT HISTORY: SOB,edema RT > > LT LE TECHNIQUE: Ultrasound examination of both lower extremities was performed to evaluate for DVT. PRIORS: None. FINDINGS: The common femoral, greater saphenous, femoral, and popliteal veins are well visualized bilaterally a nd easily compressible throughout with good color flow. Augmentation is normal at multiple levels fro m the popliteal to the common femoral vein levels. Examination of the calf veins demonstrate good visualization and compressibility of the peroneal and posterior tibial veins with good color flow throughout. IMPRESSION: No evidence for DVT identified in either lower extremity.
[2018-06-07] MEDS: NYSTOP TP SCH ×3 (10:00→22:05)
[2018-06-07] MEDS: COREG PO SCH (10:52)
[2018-06-07] MEDS: NEURONTIN PO SCH (10:53)
[2018-06-07] MEDS: ZESTRIL PO SCH (10:53)
[2018-06-07] MEDS: BABY ASPIRIN PO SCH (10:53)
[2018-06-07 12:47] LABS: Total Cells Counted 100 /mm3
--- NOTE | 2018-06-07 13:24 | Ultrasound Report ---
ULTRASOUND THORACENTESIS History: Right pleural effusion Description of procedure: Informed consent was obtained. Sterile technique was utilized. 1% lidocaine for skin anesthesia. Using ultrasound guidance, a 5 [place] centesis needle was advanced to the right pleural space. There was spontaneous return of clear yellow fluid. 1.3 L of fluid was aspirated. 120 cc of fluid was sent to the laboratory for analysis. No complications. Impression: Successful ultrasound-guided right thoracentesis.
--- NOTE | 2018-06-07 13:38 | Progress Note ---
Assessment and Plan Hold home coreg in setting of bradycardia with 1st degree AV block noted overnight and check thyroid profile. Cont all other present cardiac management. Pt for thoracentesis today. Follow pulmonary recs. The patient has been seen in conjunction with Dr. Tran who agrees with the assessment and plan of care. - Patient Problems (1) Acute HFrEF (heart failure with reduced ejection fraction) Current Visit: Yes Status: Acute (2) Pleural effusion Current Visit: Yes Status: Acute (3) Hypertension Current Visit: Yes Status: Chronic Qualifiers: Hypertension type: essential hypertension Qualified Code(s): I10 - Essential (primary) hypertension (4) Diabetes Current Visit: Yes Status: Chronic (5) Hyperlipidemia Current Visit: Yes Status: Chronic (6) CKD (chronic kidney disease) Current Visit: Yes Status: Chronic (7) COPD (chronic obstructive pulmonary disease) Current Visit: Yes Status: Chronic Subjective Date of service: 06/07/18 Principal diagnosis: pleural effusion; hf Interval history: pt resting in bed, states she is feeling a little better today. for thoracentesis today. tele reviewed - pt remains in 1st degree AV block. Objective Last Vital Signs Temp 97.3 F L 06/07/18 08:36 Pulse 40 L 06/07/18 10:00 Resp 18 06/07/18 08:36 BP 127/48 06/07/18 08:36 Pulse Ox 97 06/07/18 08:36 - Physical Examination General: No Apparent Distress HEENT: Positive: Mucus Membranes Moist Neck: Positive: neck supple, trachea midline. Negative: JVD/HJR Cardiac: Positive: Reg Rate and Rhythm, S1/S2 Lungs: Positive: Decreased Breath Sounds Neuro: Positive: Grossly Intact Abdomen: Positive: Soft. Negative: Tender Skin: Negative: Rash, Wound Musculoskeletal: No Pain Extremities: Present: +2 Edema - Labs and Meds Cardiac Enzymes 06/07/18 Range/Units 06:22 Lactate Dehydrogenase 203 H (91-180) units/L Coagulation 06/07/18 Range/Units 09:31 PT 13.8 (12.2-14.9) Sec. INR 1.00 (0.87-1.13) CBC 06/07/18 Range/Units 06:22 WBC 4.4 L (4.5-11.0) K/mm3 RBC 3.44 L (3.65-5.03) M/mm3 Hgb 9.0 L (10.1-14.3) gm/dl Hct 28.3 L (30.3-42.9) % Plt Count 191 (140-440) K/mm3 Lymph # 1.0 L (1.2-5.4) K/mm3 [place] # 0.6 (0.0-0.8) K/mm3 Eos # 0.2 (0.0-0.4) K/mm3 Baso # 0.1 (0.0-0.1) K/mm3 - Telemetry EKG Rhythm: 1st Degree HB
--- NOTE | 2018-06-07 13:58 | Procedure Note ---
Date of procedure: 06/07/18 Pre-op diagnosis: right pleural effusion Post-op diagnosis: same Procedure: US thoracentesis Findings: moderate right pleural effusion Anesthesia: local Surgeon: FAUSTINO ROMO Estimated blood loss: none Pathology: list (120cc) Specimen disposition: to lab Condition: stable Disposition: floor
--- NOTE | 2018-06-07 14:49 | XRay Report ---
AP CHEST: HISTORY: Short of breath, right pleural effusion, recent ultrasound-guided right thoracentesis Reason ultrasound-guided right thoracentesis was performed. Near-complete evacuation of the right pleural fluid is demonstrated. No pneumothorax is visualized. The lungs are adequately aerated. There is moderate cardiomegaly and borderline pulmonary venous congestion. IMPRESSION: No evidence for pneumothorax.
--- NOTE | 2018-06-07 15:08 | Progress Note ---
Assessment and Plan Assessment and plan: 67-year-old female with past medical history significant for CHF with ejection fraction of 30-35%, COPD, hypertension, lupus presented to the emergency department complaining of shortness of breath for the last 3 days associated with occasional dry cough, orthopnea does no significant change in her leg swelling. Left leg is chronically swollen. Patient is complaining of lower back pain, 6 out of 10 intensity, was no radiation, no associated weakness or paresthesia. Patient denied fever, chills or wheezing. She said she had mild chest pain on and off. Patient said she did run out of her lasix for the last 3 days AGO. Patient said she has been follow with Dr. Zapata but didn't see him for the last 3 months because of transportation problems, she discussed her about placement of defibrillator. She says she has echo done in his office 3 months ago. patient had thoracentesis in her previous admission. Acute on chronic respiratory failure with hypoxia - Continue oxygen - Pulmonary consult Acute on chronic combined CHF - IV Lasix, continue carvedilol, oxygen support - Strict input and output, low salt diet - Cardiology consult noted - Hold ACEI in the setting of worsening renal functION Right Pleural effusion - pulmonary consult noted - Repeat chest x-ray; no change - s/p thoracentesis COPD - Not in exacerbation - Breathing treatment Uncontrolled hypertension - Continue the above-mentioned medications and hydralazine when necessary - Follow BP medications closely and adjust as needed SLE - in remission Intertriginous candidiasis - on nystatin powder AURA - likely due to overdiuresis - Decrease furosemide dose - hold ACEI, if no improvement will obtain renal function DVT prophylaxis - On heparin Disposition - continue inpatient care History Interval history: Patient seen and examined, had thoracentesis today. Reports improvement in breathing. Reports home oxygen at 2 liters. Hospitalist Physical - Physical exam Narrative exam: VITAL SIGNS: Reviewed. GENERAL: The patient appeared well nourished and normally developed. Vital signs as documented. HEAD: No signs of head trauma. EYES: Pupils are equal. Extraocular motions intact. EARS: Hearing grossly intact. MOUTH: Oropharynx is normal. NECK: No adenopathy, no JVD. CHEST: Chest with rhonchi breath sounds bilaterally. No wheezes CARDIAC: Regular rate and rhythm. S1 and S2, without murmurs, gallops, or rubs. VASCULAR: No Edema. Peripheral pulses normal and equal in all extremities. ABDOMEN: Soft, without detectable tenderness. No sign of distention. No rebound or guarding, and no masses palpated. Bowel Sounds normal. MUSCULOSKELETAL: Good range of motion of all major joints. Extremities without clubbing, cyanosis or edema. NEUROLOGIC EXAM: Alert and oriented x 3. No focal sensory or strength deficits. Speech normal. Follows commands. PSYCHIATRIC: Mood normal. SKIN: No rash or lesions. - Constitutional Vitals: Temp Pulse Resp BP Pulse Ox 97.3 F L 40 L 18 127/48 97 06/07/18 08:36 06/07/18 10:00 06/07/18 08:36 06/07/18 08:36 06/07/18 08:36 Results - Labs CBC & Chem 7: 06/07/18 06:22 06/06/18 06:57 Labs: Laboratory Last Values WBC 4.4 K/mm3 (4.5-11.0) L 06/07/18 06:22 RBC 3.44 M/mm3 (3.65-5.03) L 06/07/18 06:22 Hgb 9.0 gm/dl (10.1-14.3) L 06/07/18 06:22 Hct 28.3 % (30.3-42.9) L 06/07/18 06:22 MCV 82 fl (79-97) 06/07/18 06:22 MCH 26 pg (28-32) L 06/07/18 06:22 MCHC 32 % (30-34) 06/07/18 06:22 RDW 16.5 % (13.2-15.2) H 06/07/18 06:22 Plt Count 191 K/mm3 (140-440) 06/07/18 06:22 Lymph % (Auto) 23.1 % (13.4-35.0) 06/07/18 06:22 [place] % (Auto) 14.0 % (0.0-7.3) H 06/07/18 06:22 Eos % (Auto) 5.6 % (0.0-4.3) H 06/07/18 06:22 Baso % (Auto) 1.2 % (0.0-1.8) 06/07/18 06:22 Lymph # 1.0 K/mm3 (1.2-5.4) L 06/07/18 06:22 [place] # 0.6 K/mm3 (0.0-0.8) 06/07/18 06:22 Eos # 0.2 K/mm3 (0.0-0.4) 06/07/18 06:22 Baso # 0.1 K/mm3 (0.0-0.1) 06/07/18 06:22 Seg Neutrophils % 56.1 % (40.0-70.0) 06/07/18 06:22 Seg Neutrophils # 2.4 K/mm3 (1.8-7.7) 06/07/18 06:22 PT 13.8 Sec. (12.2-14.9) 06/07/18 09:31 INR 1.00 (0.87-1.13) 06/07/18 09:31 Sodium 143 mmol/L (137-145) 06/06/18 06:57 Potassium 3.7 mmol/L (3.6-5.0) 06/06/18 06:57 Chloride 98.2 mmol/L (98-107) 06/06/18 06:57 Carbon Dioxide 34 mmol/L (22-30) H 06/06/18 06:57 Anion Gap 15 mmol/L 06/06/18 06:57 BUN 26 mg/dL (7-17) H 06/06/18 06:57 Creatinine 1.6 mg/dL (0.7-1.2) H 06/06/18 06:57 Estimated GFR 32 ml/min 06/06/18 06:57 BUN/Creatinine Ratio 16 % 06/06/18 06:57 Glucose 83 mg/dL (65-100) 06/06/18 06:57 Calcium 8.3 mg/dL (8.4-10.2) L 06/06/18 06:57 Lactate Dehydrogenase 203 units/L (91-180) H 06/07/18 06:22 Troponin T < 0.010 ng/mL (0.00-0.029) 06/04/18 07:43 NT-Pro-B Natriuret Pep 96604 pg/mL (0-900) H 06/04/18 07:43 Fluid Type Pleural 06/07/18 10:30 Fluid Color Yellow 06/07/18 10:30 Fluid Appearance Clear 06/07/18 10:30 Fluid WBC 243 /mm3 06/07/18 10:30 Fluid RBC 53 /mm3 06/07/18 10:30 Fluid Seg Neutrophils 1.0 % 06/07/18 10:30 Fluid Lymphocytes 14.0 % 06/07/18 10:30 Fluid Reactive Lymphs 0 % 06/07/18 10:30 Fluid Monocytes 82.0 % 06/07/18 10:30 Fluid Eosinophils 3.0 % 06/07/18 10:30 Fluid Basophils 0 % 06/07/18 10:30 Nutrition/Malnutrition Assess - Dietary Evaluation Nutrition/Malnutrition Findings: Nutrition Notes Start: 06/05/18 13:14 Freq: Status: Active Protocol: Document 06/05/18 13:14 RM (Rec: 06/05/18 13:15 RM [id number]) Nutrition Notes Need for 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 Bassem 20 points. Error. Nutrition Intervention Revisit per MD consult or patient Sign Off request: - Attestation Statement I have reviewed and agreed w/ Malnutrition eval & tx plan: Yes
--- NOTE | 2018-06-07 15:08 | Progress Note ---
Assessment and Plan Imp: 1. NICMP 2. A/C systolic CHF 3. Pleural effusion 2/2 above 4. CKD 5. Obesity 6. COPD w/o exac. Rec: 1. Lasix per cardiology 2. F/u PFA although 09/2017 analysis showed transudate 3. Outpatient PFTs 4. Consider PSG 5. Already has home O2 Plan of care reviewed w/ patient, she understands/agrees Subjective Date of service: 06/07/18 Principal diagnosis: pleural effusion; hf Interval history: SOB improving. No chest pain or wheezing. No new complaints. S/p Thoracentesis. Active Medications Alprazolam (Xanax) 0.5 mg PO QHS [facility] Last Admin: 06/06/18 22:19 Dose: 0.5 mg Documented by: Aspirin (Baby Aspirin) 81 mg PO DAILY [facility] Last Admin: 06/07/18 10:53 Dose: Not Given Documented by: Citalopram Hydrobromide (Celexa) 40 mg PO QPM [facility] Last Admin: 06/06/18 17:29 Dose: 40 mg Documented by: Furosemide (Lasix) 20 mg IV 0600,1800 [facility] Last Admin: 06/07/18 05:44 Dose: 20 mg Documented by: Gabapentin (Neurontin) 600 mg PO DAILY [facility] Last Admin: 06/07/18 10:53 Dose: Not Given Documented by: Heparin Sodium (Porcine) (Heparin) 5,000 unit SUB-Q Q8HR [facility] Last Admin: 06/07/18 05:44 Dose: 5,000 unit Documented by: Hydralazine HCl (Apresoline) 10 mg IV Q4HR PRN PRN Reason: Hypertension Lisinopril (Zestril) 20 mg PO DAILY [facility] Last Admin: 06/07/18 10:53 Dose: Not Given Documented by: Nystatin (Nystop) 1 applic TP BID [facility] Last Admin: 06/07/18 10:00 Dose: Not Given Documented by: Ondansetron HCl (Zofran) 4 mg IV Q8H PRN PRN Reason: Nausea And Vomiting Last Admin: 06/04/18 21:42 Dose: 4 mg Documented by: Oxycodone/Acetaminophen (Percocet 5/325) 2 tab PO Q6H PRN PRN Reason: Pain, Moderate (4-6) Last Admin: 06/06/18 22:18 Dose: 2 tab Documented by: Pravastatin Sodium (Pravachol) 40 mg PO QHS [facility] Last Admin: 06/06/18 22:19 Dose: 40 mg Documented by: Objective Vital Signs - 12hr 06/07/18 06/07/18 06/07/18 03:49 08:36 10:00 Temperature 98.2 F 97.3 F L Pulse Rate 49 L 51 L 40 L Respiratory 18 18 Rate Blood Pressure 92/51 127/48 O2 Sat by Pulse 96 97 Oximetry Constitutional: no acute distress, alert Eyes: non-icteric ENT: oropharynx moist Neck: supple Ascultation: Right: diminished breath sounds (base), Bilateral: clear Cardiovascular: regular rate and rhythm Gastrointestinal: normoactive bowel sounds, non-distended Integumentary: other (venous stasis changes LLE) Extremities: no cyanosis, edema (2+ bilateral LE edema, L > R) Neurologic: normal mental status, non-focal exam, pupils equal and round, CN II- XII normal Psychiatric: mood appropriate, affect normal CBC and BMP: 06/07/18 06:22 06/06/18 06:57 ABG, PT/INR, D-dimer: PT/INR, D-dimer PT 13.8 Sec. (12.2-14.9) 06/07/18 09:31 INR 1.00 (0.87-1.13) 06/07/18 09:31 Abnormal lab findings: Abnormal Labs 06/04/18 06/04/18 06/04/18 07:43 07:43 07:43 WBC RBC Hgb Hct MCH 26 L RDW 16.2 H Lymph % (Auto) 12.3 L [place] % (Auto) 9.6 H Eos % (Auto) Lymph # 0.7 L Seg Neutrophils % 73.3 H Carbon Dioxide BUN 18 H Creatinine Glucose 104 H Calcium Lactate Dehydrogenase NT-Pro-B Natriuret Pep 73164 H 06/05/18 06/06/18 06/07/18 06:19 06:57 06:22 WBC 4.4 L RBC 3.44 L Hgb 9.0 L Hct 28.3 L MCH 26 L RDW 16.5 H Lymph % (Auto) [place] % (Auto) 14.0 H Eos % (Auto) 5.6 H Lymph # 1.0 L Seg Neutrophils % Carbon Dioxide 33 H 34 H BUN 21 H 26 H Creatinine 1.4 H 1.6 H Glucose 102 H Calcium 8.3 L Lactate Dehydrogenase NT-Pro-B Natriuret Pep 06/07/18 06:22 WBC RBC Hgb Hct MCH RDW Lymph % (Auto) [place] % (Auto) Eos % (Auto) Lymph # Seg Neutrophils % Carbon Dioxide BUN Creatinine Glucose Calcium Lactate Dehydrogenase 203 H NT-Pro-B Natriuret Pep Chest x-ray: report reviewed, image reviewed (improved R effusion s/p thoracentesis w/ linear densities RLL ? scarring or atelectasis)
[2018-06-07] MEDS: celeXA PO SCH (17:56)
[2018-06-07] MEDS: PERCOCET 5/325 PO PRN (22:03)
[2018-06-07] MEDS: XANAX PO SCH (22:03)
[2018-06-07] MEDS: PRAVACHOL PO SCH (22:03)
[2018-06-08] MEDS: LASIX IV SCH ×2 (05:56→18:14)
[2018-06-08] MEDS: PERCOCET 5/325 PO PRN ×2 (05:56→20:37)
[2018-06-08] MEDS: HEPARIN SUB-Q SCH ×3 (05:56→21:26)
[2018-06-08 06:26] LABS: Hematocrit 30.4 % (30.3-42.9); Hemoglobin 9.5 gm/dl (10.1-14.3); Mean Corpuscular HGB Conc 31 % (30-34); Mean Corpuscular Volume 83 fl (79-97); Platelet Count 207 K/mm3 (140-440); Red Blood Count 3.67 M/mm3 (3.65-5.03); Red Cell Distribution Width 16.6 % (13.2-15.2)
[2018-06-08 07:49] LABS: Calcium 7.8 mg/dL (8.4-10.2)
--- NOTE | 2018-06-08 10:45 | Progress Note ---
Assessment and Plan Imp: 1. NICMP 2. A/C systolic CHF 3. Pleural effusion 2/2 above 4. CKD 5. Obesity 6. COPD w/o exac. Rec: 1. Lasix per cardiology 2. F/u PFA although 09/2017 analysis showed transudate 3. Outpatient PFTs 4. Consider PSG 5. Already has home O2 6. If fluid recurs may have to monitor conservatively with thoracentesis prn versus consider PleurX as outpatient; should f/u with me 1-2 weeks post- discharge for repeat CXR Plan of care reviewed w/ patient, she understands/agrees Subjective Date of service: 06/08/18 Principal diagnosis: pleural effusion; hf Interval history: SOB improving. No chest pain or wheezing. Having soreness at thora site. C/o Leg pains. Active Medications Alprazolam (Xanax) 0.5 mg PO QHS [facility] Last Admin: 06/07/18 22:03 Dose: 0.5 mg Documented by: Aspirin (Baby Aspirin) 81 mg PO DAILY [facility] Last Admin: 06/07/18 10:53 Dose: Not Given Documented by: Citalopram Hydrobromide (Celexa) 40 mg PO QPM [facility] Last Admin: 06/07/18 17:56 Dose: 40 mg Documented by: Furosemide (Lasix) 20 mg IV 0600,1800 [facility] Last Admin: 06/08/18 05:56 Dose: 20 mg Documented by: Gabapentin (Neurontin) 600 mg PO DAILY [facility] Last Admin: 06/07/18 10:53 Dose: Not Given Documented by: Heparin Sodium (Porcine) (Heparin) 5,000 unit SUB-Q Q8HR [facility] Last Admin: 06/08/18 05:56 Dose: 5,000 unit Documented by: Hydralazine HCl (Apresoline) 10 mg IV Q4HR PRN PRN Reason: Hypertension Nystatin (Nystop) 1 applic TP BID [facility] Last Admin: 06/07/18 22:05 Dose: 1 applic Documented by: Ondansetron HCl (Zofran) 4 mg IV Q8H PRN PRN Reason: Nausea And Vomiting Last Admin: 06/04/18 21:42 Dose: 4 mg Documented by: Oxycodone/Acetaminophen (Percocet 5/325) 2 tab PO Q6H PRN PRN Reason: Pain, Moderate (4-6) Last Admin: 06/08/18 05:56 Dose: 2 tab Documented by: Pravastatin Sodium (Pravachol) 40 mg PO QHS [facility] Last Admin: 06/07/18 22:03 Dose: 40 mg Documented by: Objective Vital Signs - 12hr 06/07/18 06/08/18 06/08/18 23:03 00:11 00:24 Temperature 98.4 F 98.3 F Pulse Rate 61 52 L Respiratory 18 18 18 Rate Blood Pressure 117/40 157/63 O2 Sat by Pulse 94 94 Oximetry 06/08/18 06/08/18 06/08/18 04:40 05:56 06:56 Temperature 98.1 F Pulse Rate 64 Respiratory 18 20 18 Rate Blood Pressure 109/57 O2 Sat by Pulse 97 Oximetry Constitutional: no acute distress, alert Eyes: non-icteric ENT: oropharynx moist Neck: supple Ascultation: Right: rales (base), Bilateral: clear Percussion: Right: dull Cardiovascular: regular rate and rhythm Gastrointestinal: normoactive bowel sounds, non-distended Integumentary: other (venous stasis changes LLE) Extremities: no cyanosis, edema (2+ bilateral LE edema, L > R) Neurologic: normal mental status, non-focal exam, pupils equal and round, CN II- XII normal Psychiatric: mood appropriate, affect normal CBC and BMP: 06/08/18 05:58 06/08/18 05:58 ABG, PT/INR, D-dimer: PT/INR, D-dimer PT 13.8 Sec. (12.2-14.9) 06/07/18 09:31 INR 1.00 (0.87-1.13) 06/07/18 09:31 Abnormal lab findings: Abnormal Labs 06/04/18 06/04/18 06/04/18 07:43 07:43 07:43 WBC RBC Hgb Hct MCH 26 L RDW 16.2 H Lymph % (Auto) 12.3 L [place] % (Auto) 9.6 H Eos % (Auto) Lymph # 0.7 L Seg Neutrophils % 73.3 H Carbon Dioxide BUN 18 H Creatinine Glucose 104 H Calcium Lactate Dehydrogenase NT-Pro-B Natriuret Pep 39111 H 06/05/18 06/06/18 06/07/18 06:19 06:57 06:22 WBC 4.4 L RBC 3.44 L Hgb 9.0 L Hct 28.3 L MCH 26 L RDW 16.5 H Lymph % (Auto) [facility] % (Auto) 14.0 H Eos % (Auto) 5.6 H Lymph # 1.0 L Seg Neutrophils % Carbon Dioxide 33 H 34 H BUN 21 H 26 H Creatinine 1.4 H 1.6 H Glucose 102 H Calcium 8.3 L Lactate Dehydrogenase NT-Pro-B Natriuret Pep 06/07/18 06/08/18 06/08/18 06:22 05:58 05:58 WBC RBC Hgb 9.5 L Hct MCH 26 L RDW 16.6 H Lymph % (Auto) [facility] % (Auto) Eos % (Auto) Lymph # Seg Neutrophils % Carbon Dioxide 33 H BUN 32 H Creatinine 1.5 H Glucose Calcium 7.8 L Lactate Dehydrogenase 203 H NT-Pro-B Natriuret Pep Chest x-ray: report reviewed, image reviewed (R effusion drained)
[2018-06-08] MEDS: NEURONTIN PO SCH (11:32)
[2018-06-08] MEDS: BABY ASPIRIN PO SCH (11:32)
[2018-06-08] MEDS: NYSTOP TP SCH ×2 (11:33→21:26)
--- NOTE | 2018-06-08 12:43 | Consultation ---
History of Present Illness - Reason for Consult Consult date: 06/08/18 acute renal failure, chronic renal failure Requesting physician: EDITH HINKLE - History of Present Illness The patient is a 67-year-old female presenting with a chief complaint shortness of breath. Patient states the past 3 days she has had orthopnea and dyspnea on exertion. Patient admits to nausea and occasional cough is nonproductive. The patient states she has not had her Lasix for the past 2-3 days because she could not find it. Patient states for the past 3 days she's also had intermittent sharp substernal chest pain but she currently denies pain Location: Lungs Duration: [See above] Quality: [See above] Severity: [See above] Modifying factors: [see above] Context: [see above] Mode of transportation: [not driving] - Past Medical History Previous Medical History?: Yes Hx Hypertension: Yes Hx Heart Attack/AMI: Yes Hx Congestive Heart Failure: Yes Hx Diabetes: Yes Hx Renal Disease: Yes (AKD) Hx Arthritis: Yes Hx COPD: Yes Additional medical history: lupus fibromyalgia - Surgical History Past Surgical History?: Yes Additional Surgical History: carpal tunnel - Family History Family history: no significant - Social History Smoking Status: Former Smoker (none 5 years) Substance Use Type: None ROS: Stated complaint: SOB/WEAKNESS Other details as noted in HPI Constitutional: no symptoms reported Eyes: denies: eye pain ENT: denies: throat pain Respiratory: cough, orthopnea, shortness of breath, SOB with exertion Cardiovascular: chest pain Endocrine: no symptoms reported Gastrointestinal: nausea Genitourinary: denies: dysuria Musculoskeletal: back pain Neurological: denies: headache Past History Past Medical History: COPD, hypertension, hyperlipidemia Past Surgical History: Other (carpal tunnel release surgery, rectal abscess drainage) Social history: AND/DNR-allow natural . denies: smoking, alcohol abuse, prescription drug abuse, IV drug use Family history: no significant family history Medications and Allergies Allergies Allergy/AdvReac Type Severity Reaction Status Date / Time Penicillins Allergy Rash Verified 10/06/17 17:41 Home Medications Medication Instructions Recorded Confirmed Last Taken Type Pravastatin [Pravachol] 40 mg PO QHS #30 08/05/17 06/04/18 06/03/18 21:00 Rx Aspirin [Aspirin BABY CHEW TAB] 81 mg PO DAILY 06/06/04/18 06/03/18 21:00 History Citalopram Hydrobromide [Celexa] 40 mg PO QPM 09/29/17 06/04/18 06/03/18 21:00 History Furosemide [Lasix TAB] 40 mg PO DAILY 09/29/17 06/04/18 06/03/18 21:00 History Gabapentin [Neurontin] 600 mg PO TID 09/29/17 06/04/18 06/03/18 21:00 History Lisinopril [Zestril] 20 mg PO DAILY 09/29/17 06/04/18 06/03/18 21:00 History Oxycodone HCl/Acetaminophen 10 - 325 mg PO Q8H 09/29/17 06/04/18 06/03/18 21:00 History [Percocet 10/325 mg] Carvedilol [Coreg] 6.25 mg PO BID #60 tablet 10/03/17 06/04/18 06/03/18 21:00 Rx ALPRAZolam [Xanax TAB] 0.5 mg PO QHS #7 tablet 10/06/17 06/04/18 06/03/18 21:00 Rx Active Meds: Active Medications Alprazolam (Xanax) 0.5 mg PO QHS [facility] Last Admin: 06/07/18 22:03 Dose: 0.5 mg Documented by: Aspirin (Baby Aspirin) 81 mg PO DAILY [facility] Last Admin: 06/08/18 11:32 Dose: 81 mg Documented by: Citalopram Hydrobromide (Celexa) 40 mg PO QPM [facility] Last Admin: 06/07/18 17:56 Dose: 40 mg Documented by: Furosemide (Lasix) 20 mg IV 0600,1800 [facility] Last Admin: 06/08/18 05:56 Dose: 20 mg Documented by: Gabapentin (Neurontin) 600 mg PO DAILY [facility] Last Admin: 06/08/18 11:32 Dose: 600 mg Documented by: Heparin Sodium (Porcine) (Heparin) 5,000 unit SUB-Q Q8HR [facility] Last Admin: 06/08/18 05:56 Dose: 5,000 unit Documented by: Hydralazine HCl (Apresoline) 10 mg IV Q4HR PRN PRN Reason: Hypertension Nystatin (Nystop) 1 applic TP BID [facility] Last Admin: 06/08/18 11:33 Dose: 1 applic Documented by: Ondansetron HCl (Zofran) 4 mg IV Q8H PRN PRN Reason: Nausea And Vomiting Last Admin: 06/04/18 21:42 Dose: 4 mg Documented by: Oxycodone/Acetaminophen (Percocet 5/325) 2 tab PO Q6H PRN PRN Reason: Pain, Moderate (4-6) Last Admin: 06/08/18 05:56 Dose: 2 tab Documented by: Pravastatin Sodium (Pravachol) 40 mg PO QHS [facility] Last Admin: 06/07/18 22:03 Dose: 40 mg Documented by: Exam - Vital Signs Vital signs: Vital Signs Pulse Ox 99 06/04/18 07:06 - Physical Exam Narrative exam: GENERAL: The patient is well-developed well-nourished female lying on stretcher not appearing to be in acute distress. [] HEENT: Normocephalic. Atraumatic. Extraocular motions are intact. Patient has moist mucous membranes. NECK: Supple. Trachea midline CHEST/LUNGS: Decreased breath sounds at the right base. There is no respiratory distress noted. HEART/CARDIOVASCULAR: Regular. There is no tachycardia. There is no gallop rub or murmur. ABDOMEN: Abdomen is soft, nontender. Patient has normal bowel sounds. There is no abdominal distention. SKIN: There is no rash. There is no edema. There is no diaphoresis. NEURO: The patient is awake, alert, and oriented. The patient is cooperative. The patient has normal speech MUSCULOSKELETAL: There is no evidence of acute injury. Results - Lab Results 06/08/18 05:58 06/08/18 05:58 Most recent lab results Calcium 7.8 mg/dL (8.4-10.2) L 06/08/18 05:58 Assessment and Plan Impression: * kristopher on ckd stage 3 * NICMP * A/C systolic CHF * Pleural effusion 2/2 above * CKD * Obesity * COPD w/o exac. 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
--- NOTE | 2018-06-08 17:47 | Progress Note ---
Assessment and Plan Assessment and plan: 67-year-old female with past medical history significant for CHF with ejection fraction of 30-35%, COPD, hypertension, lupus presented to the emergency department complaining of shortness of breath for the last 3 days associated with occasional dry cough, orthopnea does no significant change in her leg swelling. Left leg is chronically swollen. Patient is complaining of lower back pain, 6 out of 10 intensity, was no radiation, no associated weakness or paresthesia. Patient denied fever, chills or wheezing. She said she had mild chest pain on and off. Patient said she did run out of her lasix for the last 3 days AGO. Patient said she has been follow with Dr. Zapata but didn't see him for the last 3 months because of transportation problems, she discussed her about placement of defibrillator. She says she has echo done in his office 3 months ago. patient had thoracentesis in her previous admission. Acute on chronic respiratory failure with hypoxia - Continue oxygen - Pulmonary consult and input noted Per pulmonary. - F/u PFA although 09/2017 analysis showed transudate, Outpatient PFTs-Consider PSG - If fluid recurs may have to monitor conservatively with thoracentesis prn versus consider PleurX as outpatient; should f/u with me 1-2 weeks post- discharge for repeat CXR Acute on chronic combined CHF - IV Lasix, continue carvedilol, oxygen support - Strict input and output, low salt diet - Cardiology consult noted - Hold ACEI in the setting of worsening renal function Right Pleural effusion - pulmonary consult noted - Repeat chest x-ray; no change - s/p thoracentesis COPD - Not in exacerbation - Breathing treatment Uncontrolled hypertension - Continue the above-mentioned medications and hydralazine when necessary - Follow BP medications closely and adjust as needed SLE - in remission Candidiasis - on nystatin powder CKD based on records - likely due to overdiuresis - Decrease furosemide dose - hold ACEI, if no improvement - Nephrology consult DVT prophylaxis - On heparin Disposition - continue inpatient care - Discharge in AM History Interval history: Patient seen and examined, Reports improvement in breathing. Reports home oxygen at 2 liters, anticipate discharge in am. Hospitalist Physical - Physical exam Narrative exam: VITAL SIGNS: Reviewed. GENERAL: The patient appeared well nourished and normally developed. Vital signs as documented. HEAD: No signs of head trauma. EYES: Pupils are equal. Extraocular motions intact. EARS: Hearing grossly intact. MOUTH: Oropharynx is normal. NECK: No adenopathy, no JVD. CHEST: Chest with rhonchi breath sounds bilaterally. No wheezes CARDIAC: Regular rate and rhythm. S1 and S2, without murmurs, gallops, or rubs. VASCULAR: No Edema. Peripheral pulses normal and equal in all extremities. ABDOMEN: Soft, without detectable tenderness. No sign of distention. No rebound or guarding, and no masses palpated. Bowel Sounds normal. MUSCULOSKELETAL: Good range of motion of all major joints. Extremities without clubbing, cyanosis or edema. NEUROLOGIC EXAM: Alert and oriented x 3. No focal sensory or strength deficits. Speech normal. Follows commands. PSYCHIATRIC: Mood normal. SKIN: No rash or lesions. - Constitutional Vitals: Temp Pulse Resp BP Pulse Ox 98.1 F 72 18 109/57 97 06/08/18 04:40 06/08/18 10:00 06/08/18 10:00 06/08/18 04:40 06/08/18 10:00 Results - Labs CBC & Chem 7: 06/08/18 05:58 06/08/18 05:58 Labs: Laboratory Last Values WBC 6.1 K/mm3 (4.5-11.0) 06/08/18 05:58 RBC 3.67 M/mm3 (3.65-5.03) 06/08/18 05:58 Hgb 9.5 gm/dl (10.1-14.3) L 06/08/18 05:58 Hct 30.4 % (30.3-42.9) 06/08/18 05:58 MCV 83 fl (79-97) 06/08/18 05:58 MCH 26 pg (28-32) L 06/08/18 05:58 MCHC 31 % (30-34) 06/08/18 05:58 RDW 16.6 % (13.2-15.2) H 06/08/18 05:58 Plt Count 207 K/mm3 (140-440) 06/08/18 05:58 Lymph % (Auto) 23.1 % (13.4-35.0) 06/07/18 06:22 [place] % (Auto) 14.0 % (0.0-7.3) H 06/07/18 06:22 Eos % (Auto) 5.6 % (0.0-4.3) H 06/07/18 06:22 Baso % (Auto) 1.2 % (0.0-1.8) 06/07/18 06:22 Lymph # 1.0 K/mm3 (1.2-5.4) L 06/07/18 06:22 [place] # 0.6 K/mm3 (0.0-0.8) 06/07/18 06:22 Eos # 0.2 K/mm3 (0.0-0.4) 06/07/18 06:22 Baso # 0.1 K/mm3 (0.0-0.1) 06/07/18 06:22 Seg Neutrophils % 56.1 % (40.0-70.0) 06/07/18 06:22 Seg Neutrophils # 2.4 K/mm3 (1.8-7.7) 06/07/18 06:22 PT 13.8 Sec. (12.2-14.9) 06/07/18 09:31 INR 1.00 (0.87-1.13) 06/07/18 09:31 Sodium 142 mmol/L (137-145) 06/08/18 05:58 Potassium 4.0 mmol/L (3.6-5.0) 06/08/18 05:58 Chloride 99.5 mmol/L (98-107) 06/08/18 05:58 Carbon Dioxide 33 mmol/L (22-30) H 06/08/18 05:58 Anion Gap 14 mmol/L 06/08/18 05:58 BUN 32 mg/dL (7-17) H 06/08/18 05:58 Creatinine 1.5 mg/dL (0.7-1.2) H 06/08/18 05:58 Estimated GFR 35 ml/min 06/08/18 05:58 BUN/Creatinine Ratio 21 % 06/08/18 05:58 Glucose 96 mg/dL (65-100) 06/08/18 05:58 Calcium 7.8 mg/dL (8.4-10.2) L 06/08/18 05:58 Lactate Dehydrogenase 203 units/L (91-180) H 06/07/18 06:22 Troponin T < 0.010 ng/mL (0.00-0.029) 06/04/18 07:43 NT-Pro-B Natriuret Pep 04153 pg/mL (0-900) H 06/04/18 07:43 TSH 1.230 mlU/mL (0.270-4.200) 06/07/18 15:15 Free T4 0.95 ng/dL (0.76-1.46) 06/07/18 15:15 Fluid Type Pleural 06/07/18 10:30 Fluid Color Yellow 06/07/18 10:30 Fluid Appearance Clear 06/07/18 10:30 Fluid WBC 243 /mm3 06/07/18 10:30 Fluid RBC 53 /mm3 06/07/18 10:30 Fluid Seg Neutrophils 1.0 % 06/07/18 10:30 Fluid Lymphocytes 14.0 % 06/07/18 10:30 Fluid Reactive Lymphs 0 % 06/07/18 10:30 Fluid Monocytes 82.0 % 06/07/18 10:30 Fluid Eosinophils 3.0 % 06/07/18 10:30 Fluid Basophils 0 % 06/07/18 10:30 Nutrition/Malnutrition Assess - Dietary Evaluation Nutrition/Malnutrition Findings: Nutrition Notes Start: 06/05/18 13:14 Freq: Status: Active Protocol: Document 06/05/18 13:14 RM (Rec: 06/05/18 13:15 [id number]) Nutrition Notes 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 Bassem 20 points. Error. Nutrition Intervention Revisit per MD consult or patient Sign Off request:
[2018-06-08] MEDS: celeXA PO SCH (18:14)
[2018-06-08] MEDS: XANAX PO SCH (21:26)
[2018-06-08] MEDS: PRAVACHOL PO SCH (21:27)
[2018-06-08] MEDS ORDERED: DULCOLAX PO PRN (21:39)
[2018-06-09] MEDS: LASIX IV SCH (05:48)
[2018-06-09] MEDS: HEPARIN SUB-Q SCH ×2 (05:48→15:37)
--- NOTE | 2018-06-09 08:29 | Discharge Summary ---
Providers - Providers Date of Admission: 06/04/18 09:32 Attending physician: AMAYA PALUMBO MD 06/04/18 10:44 Consult to Physician [CONS] Routine Comment: Consulting Provider: BRIAN PRUETT Physician Instructions: Reason For Exam: CHF 06/04/18 11:09 Consult to Physician [CONS] Routine Comment: Consulting Provider: PENELOPE PIZANO Physician Instructions: Reason For Exam: moderate right pleural effusion 06/08/18 10:09 Consult to Physician [CONS] Routine Comment: Consulting Provider: CHEMO TA Physician Instructions: Reason For Exam: AURA Primary care physician: [facility], [place] Hospitalization Reason for admission: heart failure Condition: Stable Hospital course: 67-year-old female with past medical history significant for CHF with ejection fraction of 30-35%, COPD, hypertension, lupus presented to the emergency department complaining of shortness of breath for the last 3 days associated with occasional dry cough, orthopnea does no significant change in her leg swelling. Left leg is chronically swollen. Patient is complaining of lower back pain, 6 out of 10 intensity, was no radiation, no associated weakness or paresthesia. Patient denied fever, chills or wheezing. She said she had mild chest pain on and off. Patient said she did run out of her lasix for the last 3 days AGO. Patient said she has been follow with Dr. Pruett but didn't see him for the last 3 months because of transportation problems, she discussed her about placement of defibrillator. She says she has echo done in his office 3 months ago. patient had thoracentesis in her previous admission. Acute on chronic respiratory failure with hypoxia - Continue oxygen - Pulmonary consult and input noted Per pulmonary. - F/u PFA although 09/2017 analysis showed transudate, Outpatient PFTs-Consider PSG - If fluid recurs may have to monitor conservatively with thoracentesis prn versus consider PleurX as outpatient; should f/u with me 1-2 weeks post- discharge for repeat CXR. This was discussed with the patient Acute on chronic combined CHF - she was treated with IV Lasix, continue carvedilol, oxygen support - Strict input and output, low salt diet - Cardiology consult noted - Hold ACEI in the setting of worsening renal function - Heart failure education provided and home health also arranged Right Pleural effusion - pulmonary consult noted - Repeat chest x-ray; no change - s/p thoracentesis COPD - Not in exacerbation - Breathing treatment Uncontrolled hypertension - Continue the above-mentioned medications and hydralazine when necessary - Follow BP medications closely and adjust as needed SLE - in remission Candidiasis - on nystatin powder CKD based on records - likely due to overdiuresis - Decrease furosemide dose - hold ACEI, if no improvement - Nephrology consult patient to follow with them on discharge at their office in two weeks Disposition: [id number] HOME UNDER HOME [facility] Time spent for discharge: 35 mins Core Measure Documentation - Palliative Care Palliative Care/ Comfort Measures: Not Applicable - Core Measures Any of the following diagnoses?: heart failure - Heart Failure Discharge Requirements THAIS/ARB for LVSD if EF <40%: No Reason for no THAIS/ARB: Renal impairment Beta christiano at discharge: Yes Exam - Physical Exam Narrative exam: VITAL SIGNS: Reviewed. GENERAL: The patient appeared well nourished and normally developed. Vital signs as documented. HEAD: No signs of head trauma. EYES: Pupils are equal. Extraocular motions intact. EARS: Hearing grossly intact. MOUTH: Oropharynx is normal. NECK: No adenopathy, no JVD. CHEST: Chest with rhonchi breath sounds bilaterally. No wheezes CARDIAC: Regular rate and rhythm. S1 and S2, without murmurs, gallops, or rubs. VASCULAR: No Edema. Peripheral pulses normal and equal in all extremities. ABDOMEN: Soft, without detectable tenderness. No sign of distention. No rebound or guarding, and no masses palpated. Bowel Sounds normal. MUSCULOSKELETAL: Good range of motion of all major joints. Extremities without clubbing, cyanosis or edema. NEUROLOGIC EXAM: Alert and oriented x 3. No focal sensory or strength deficits. Speech normal. Follows commands. PSYCHIATRIC: Mood normal. SKIN: No rash or lesions. - Constitutional Vitals: Temp Pulse Resp BP Pulse Ox 98.9 F 66 20 144/61 98 06/09/18 08:20 06/09/18 04:01 06/09/18 08:20 06/09/18 08:20 06/09/18 04:01 Plan Activity: advance as tolerated, fall precautions Diet: low fat, low salt Special Instructions: record daily weights, record daily BP diary Follow up with: BENJAMIN MCLEAN MD [Primary Care Provider] - 3-5 Days KENDALL LAYNE MD [Staff Physician] - 7 Days BRANT,EFREN L, MD [Staff Physician] - 7 Days TANVI TIM MD [Staff Physician] - 7 Days Prescriptions: Nystatin [Nystop Powder] 1 applicatio TP BID 5 Days #1 bottle
[2018-06-09] MEDS: NEURONTIN PO SCH (10:38)
[2018-06-09] MEDS: BABY ASPIRIN PO SCH (10:38)
[2018-06-09] MEDS: NYSTOP TP SCH (10:40)
--- NOTE | 2018-06-09 11:09 | Progress Note ---
Assessment and Plan HR improved since discontinuation of home coreg, pt in SR with 1st degree AV block. cont to hold BB. No ACEI/ARB at this time in setting of renal insufficiency. Convert IV lasix to 40mg PO daily. Currently stable cardiac status. Pt may discharge home from cardiology standpoint. Plan to address AICD candidacy as OP. Recommend pt follow up in our office with Dr. Zapata within 3-5 days of hospital discharge ([phone]). Pt states she will call and make her own appt. The patient has been seen in conjunction with Dr. Tran who agrees with the assessment and plan of care. - Patient Problems (1) Acute HFrEF (heart failure with reduced ejection fraction) Current Visit: Yes Status: Acute (2) Pleural effusion Current Visit: Yes Status: Acute (3) Hypertension Current Visit: Yes Status: Chronic Qualifiers: Hypertension type: essential hypertension Qualified Code(s): I10 - Essential (primary) hypertension (4) Diabetes Current Visit: Yes Status: Chronic (5) Hyperlipidemia Current Visit: Yes Status: Chronic (6) CKD (chronic kidney disease) Current Visit: Yes Status: Chronic (7) COPD (chronic obstructive pulmonary disease) Current Visit: Yes Status: Chronic (8) Chronic venous stasis dermatitis Current Visit: Yes Status: Chronic Subjective Date of service: 06/09/18 Principal diagnosis: pleural effusion; hf Interval history: pt sitting up at bedside, c/o pleuritic chest pain s/p thoracentesis, SOB improved. in SR on tele with 1st degree AV block. Objective Last Vital Signs Temp 98.9 F 06/09/18 08:20 Pulse 66 06/09/18 04:01 Resp 20 06/09/18 08:20 BP 144/61 06/09/18 08:20 Pulse Ox 98 06/09/18 04:01 - Physical Examination General: No Apparent Distress HEENT: Positive: Mucus Membranes Moist Neck: Positive: neck supple, trachea midline. Negative: JVD/HJR Cardiac: Positive: Reg Rate and Rhythm, S1/S2 Lungs: Positive: Decreased Breath Sounds Neuro: Positive: Grossly Intact Abdomen: Positive: Soft. Negative: Tender Skin: Negative: Rash, Wound Musculoskeletal: No Pain Extremities: Present: +2 Edema - Imaging and Cardiology EKG: report reviewed, image reviewed Echo: report reviewed (06/2017: EF 30-35%, grade 2 diastolic dysfunction, LA severely enlarged, RA mildly enlarged, mild MR, mild to mod TR, RVSP 62mmHg. ) - Telemetry EKG Rhythm: Sinus Rhythm
--- NOTE | 2018-06-09 12:07 | Progress Note ---
Assessment and Plan Imp: 1. NICMP 2. A/C systolic CHF 3. Pleural effusion 2/2 above 4. CKD 5. Obesity 6. COPD w/o exac. Rec: 1. Lasix per cardiology 2. F/u PFA although 09/2017 analysis showed transudate 3. Outpatient PFTs 4. Consider PSG 5. Already has home O2 6. If fluid recurs may have to monitor conservatively with thoracentesis prn versus consider PleurX as outpatient; Follow up with Herman in 10-14 days post discharge. Plan of care reviewed w/ patient, she understands/agrees Subjective Date of service: 06/09/18 Principal diagnosis: pleural effusion; hf Interval history: Being discharged home today Objective Vital Signs - 12hr 06/09/18 06/09/18 04:01 08:20 Temperature 98.5 F 98.9 F Pulse Rate 66 Respiratory 18 20 Rate Blood Pressure 122/62 144/61 O2 Sat by Pulse 98 Oximetry Constitutional: no acute distress, alert Eyes: non-icteric ENT: oropharynx moist Neck: supple Ascultation: Right: diminished breath sounds (base), rales (base), Bilateral: clear Percussion: Right: dull Cardiovascular: regular rate and rhythm Gastrointestinal: normoactive bowel sounds, non-distended Integumentary: other (venous stasis changes LLE) Extremities: no cyanosis, edema (2+ bilateral LE edema, L > R) Neurologic: normal mental status, non-focal exam, pupils equal and round, CN II- XII normal Psychiatric: mood appropriate, affect normal CBC and BMP: 06/08/18 05:58 06/08/18 05:58 ABG, PT/INR, D-dimer: PT/INR, D-dimer PT 13.8 Sec. (12.2-14.9) 06/07/18 09:31 INR 1.00 (0.87-1.13) 06/07/18 09:31 Abnormal lab findings: Abnormal Labs 06/04/18 06/04/18 06/04/18 07:43 07:43 07:43 WBC RBC Hgb Hct MCH 26 L RDW 16.2 H Lymph % (Auto) 12.3 L Rankin % (Auto) 9.6 H Eos % (Auto) Lymph # 0.7 L Seg Neutrophils % 73.3 H Carbon Dioxide BUN 18 H Creatinine Glucose 104 H Calcium Lactate Dehydrogenase NT-Pro-B Natriuret Pep [id number] H 06/05/18 06/06/18 06/07/18 06:19 06:57 06:22 WBC 4.4 L RBC 3.44 L Hgb 9.0 L Hct 28.3 L MCH 26 L RDW 16.5 H Lymph % (Auto) Rankin % (Auto) 14.0 H Eos % (Auto) 5.6 H Lymph # 1.0 L Seg Neutrophils % Carbon Dioxide 33 H 34 H BUN 21 H 26 H Creatinine 1.4 H 1.6 H Glucose 102 H Calcium 8.3 L Lactate Dehydrogenase NT-Pro-B Natriuret Pep 06/07/18 06/08/18 06/08/18 06:22 05:58 05:58 WBC RBC Hgb 9.5 L Hct MCH 26 L RDW 16.6 H Lymph % (Auto) Rankin % (Auto) Eos % (Auto) Lymph # Seg Neutrophils % Carbon Dioxide 33 H BUN 32 H Creatinine 1.5 H Glucose Calcium 7.8 L Lactate Dehydrogenase 203 H NT-Pro-B Natriuret Pep
[2018-06-09 16:51] VITALS: BP 142/68
[2018-06-09] MEDS: celeXA PO SCH (18:37)
[2018-06-10] MEDS ORDERED: LASIX PO SCH (06:00)
[2018-06-13 11:07] LABS: LDH,Body Fluid 144; Total Protein,Body Fluid 3.4 (15.0-45.0); Triglycerides,Body Fluid 20; pH, Body Fluid 7.6
== END 2018-06-09 19:35 | disposition home health service (06) | DRG 291 ==
LOC: ED 06:33 → 4A 09:32
PROVIDERS: ADMIT Internal Medicine; ATTEND Internal Medicine
PROC: 0W993ZZ Drainage of Right Pleural Cavity, Percutaneous Approach (ICD-10-PCS; principal; 2018-06-07)
DX: I13.0 Hypertensive heart and chronic kidney disease with heart failure and stage 1 through stage 4 chronic kidney disease, or unspecified chronic kidney disease (principal); J96.21 Acute and chronic respiratory failure with hypoxia; I50.43 Acute on chronic combined systolic (congestive) and diastolic (congestive) heart failure; J91.8 Pleural effusion in other conditions classified elsewhere; N17.9 Acute kidney failure, unspecified; I42.9 Cardiomyopathy, unspecified; J44.9 Chronic obstructive pulmonary disease, unspecified; E11.9 Type 2 diabetes mellitus without complications; M19.90 Unspecified osteoarthritis, unspecified site; M79.7 Fibromyalgia; N18.3 Chronic kidney disease, stage 3 (moderate); E66.9 Obesity, unspecified; Z66 Do not resuscitate; M32.9 Systemic lupus erythematosus, unspecified; B37.9 Candidiasis, unspecified; T50.1X5A Adverse effect of loop [high-ceiling] diuretics, initial encounter; Y92.89 Other specified places as the place of occurrence of the external cause; Z79.82 Long term (current) use of aspirin; I25.2 Old myocardial infarction; Z88.0 Allergy status to penicillin; Z79.899 Other long term (current) drug therapy; Z87.891 Personal history of nicotine dependence; Z68.34 Body mass index [BMI] 34.0-34.9, adult
CPT/HCPCS: 32555; 36415; 71045; 80048; 82040; 82947; 83605; 83615; 83880; 84160; 84439; 84443; 84478; 84484; 85025; 85027; 85610; 87116; 88112; 88305; 89051; 93005; 93010; 93970; G0378; A9270-GY; J1644; J1940; J2405